=== PATIENT | female | born 1990 | race Two or more races ===

== ENCOUNTER 2020-08-10 | Outpatient (REF) | payer OTHER, SELFPAY | END 2020-08-10 00:01 | disposition home or self-care (01) | LOC: HO.HAP | PROVIDERS: Visit Provider Internal Medicine | DX: Z46.1 Encounter for fitting and adjustment of hearing aid (principal); H90.3 Sensorineural hearing loss, bilateral | CPT/HCPCS: 92593; 99499; V5266 ==

== ENCOUNTER 2020-10-17 10:57 | Outpatient (REF) | payer OTHER, SELFPAY ==
[2020-10-17 11:15] LABS: COVID-19 Test Negative (Negative)
== END 2020-10-17 10:58 | disposition home or self-care (01) ==
LOC: HO.LAB 10:57
PROVIDERS: Visit Provider Internal Medicine
DX: Z20.822 Contact with and (suspected) exposure to COVID-19 (principal)
CPT/HCPCS: 36415; 87635; C9803

== ENCOUNTER 2020-10-23 09:38 | Outpatient (REF) | payer OTHER, SELFPAY ==
[2020-10-23 10:17] LABS: COVID-19 Test Negative (Negative)
== END 2020-10-23 09:39 | disposition home or self-care (01) ==
LOC: HO.LAB 09:38
PROVIDERS: Visit Provider Internal Medicine
DX: Z20.822 Contact with and (suspected) exposure to COVID-19 (principal)
CPT/HCPCS: 36415; 87635; C9803

== ENCOUNTER 2020-10-31 11:05 | Outpatient (REF) | payer OTHER, SELFPAY ==
[2020-10-31 11:29] LABS: COVID-19 Test Negative (Negative)
== END 2020-10-31 11:06 | disposition home or self-care (01) ==
LOC: HO.LAB 11:05
PROVIDERS: Visit Provider Internal Medicine
DX: Z20.822 Contact with and (suspected) exposure to COVID-19 (principal)
CPT/HCPCS: 36415; 87635; C9803

== ENCOUNTER → 2020-12-10 09:24 | Outpatient (BNVA) | payer OTHER, SELFPAY | PROVIDERS: PCP Internal Medicine | DX: N23 Unspecified renal colic (principal); M54.9 Dorsalgia, unspecified | CPT/HCPCS: 99212 ==

== ENCOUNTER 2020-12-20 10:37 | Outpatient (REF) | payer OTHER, SELFPAY ==
--- NOTE | ~2020-12-20 | US_ITS ---
EXAMINATION: US RETROPERITONEAL LIMITED (RENAL ONLY) CLINICAL INFORMATION: Nephrolithiasis. COMPARISON: Renal ultrasound 12/26/2019 and 11/02/2019. X-ray abdomen KUB 12/07/2019. CT abdomen and pelvis 02/09/2019. TECHNIQUE: Real-time imaging of the kidneys. FINDINGS: RIGHT KIDNEY: 12.0 x 4.7 x 4.8 cm (SAG x AP x TRV). The kidney is normal in size, contour, and echogenicity. Renal cortical thickness is normal. No calculi or focal parenchymal lesions. No hydronephrosis. LEFT KIDNEY: 11.8 x 4.8 x 4.4 cm (SAG x AP x TRV). The kidney is normal in size, contour, and echogenicity. Renal cortical thickness is normal. No focal parenchymal lesions or hydronephrosis. A nonobstructing calculus in the lower pole measures 0.3 cm. US/US renal BI IMPRESSION: 1. Nonobstructing 0.3 cm calculus lower pole left kidney. No hydronephrosis. 2. Unremarkable right kidney. No calculi or hydronephrosis.
== END 2020-12-20 10:38 | disposition home or self-care (01) ==
LOC: HO.US 10:37
PROVIDERS: Visit Provider Urology
DX: N20.0 Calculus of kidney (principal)
CPT/HCPCS: 76775

== ENCOUNTER → 2021-01-08 10:05 | Outpatient (BNVA) | payer OTHER, SELFPAY | PROVIDERS: PCP Internal Medicine | DX: N23 Unspecified renal colic (principal) | CPT/HCPCS: 99212 ==

== ENCOUNTER 2021-01-21 11:34 | Outpatient (REF) | payer OTHER, SELFPAY | END 2021-01-21 11:35 | disposition home or self-care (01) | LOC: HO.LAB 11:34 | PROVIDERS: PCP Internal Medicine; Visit Provider Internal Medicine | DX: Z20.822 Contact with and (suspected) exposure to COVID-19 (principal) | CPT/HCPCS: C9803; U0003; U0005 ==

== ENCOUNTER 2021-03-20 10:15 | Outpatient (REF) | payer OTHER, SELFPAY ==
[2021-03-20 11:32] LABS: Eosinophils Absolute Auto 0.1 X10*3/uL (0.0-0.4); MANUAL DIFF FLAG SCAN; Mean Platelet Volume 10.6 fL (9.4-12.3); SCAN SMEAR FLAG 1
[2021-03-20 11:33] LABS: Basophils Percent Auto 0.2 % (0-2); Eosinophils Percent Auto 0.9 % (0-4); Hematocrit 25.4 % (37-47); Imm Gran Abs Auto 0.03 X10*3/uL (0.00-0.03); Imm Gran Pct Auto 0.5 % (0.0-0.4); Lymphocytes Absolute Auto 1.7 X10*3/uL (1.2-4.9); Lymphocytes Percent Auto 28.8 % (20-40); Mean Corpuscular HGB Conc 26.8 g/dl (31.0-35.0); Mean Corpuscular Hemoglobin 16.6 pg (27.0-33.0); Monocytes Absolute Auto 0.4 X10*3/uL (0.1-1.2); Monocytes Percent Auto 7.5 % (2-11); Neutrophils Absolute Auto 3.6 X10*3/uL (2.0-8.3); Neutrophils Percent Auto 62.1 % (45-73); Platelet Count 391 X10*3/uL (160-400); Red Blood Count 4.09 X10*6/uL (4.20-5.50); Red Cell Distribution Width 20.2 % (11.0-16.0); White Blood Count 5.8 X10*3/uL (4.8-10.8)
[2021-03-20 11:34] LABS: Mean Corpuscular Volume 62.1 fL (80-98); PLT ABN DIST 1
[2021-03-20 12:00] LABS: Hemoglobin 6.8 g/dl (12.0-16.0)
[2021-03-20 12:01] LABS: SLIDE REVIEW VERIFIED
[2021-03-20 12:31] LABS: Alanine Aminotransferase 11 U/L (0-31); Albumin Level 4.3 g/dL (3.5-5.0); Alkaline Phosphatase 84 U/L (39-117); Anion Gap 14 (12-20); Aspartate Amino Transferase 14 U/L (5-31); Bilirubin Total 0.6 mg/dL (0.0-1.0); Blood Urea Nitrogen 9 mg/dL (9-16); Calcium 9.3 mg/dL (8.4-10.2); Carbon Dioxide 23 mmol/L (22-29); Chloride 107 mmol/L (96-108); Cholesterol 128 mg/dL; Estimated Glomerular Filt Rate > 60; Glucose Fasting 85 mg/dL (60-99); HDL Cholesterol 40 mg/dL; LDL Cholesterol Calculated 79 mg/dl; Potassium 4.6 mmol/L (3.3-5.1); Sodium 139 mmol/L (135-145); Total Protein 7.2 g/dL (6.5-8.0); Triglycerides 48 mg/dL
[2021-03-20 13:07] LABS: Thyroid Stimulating Hormone 0.58 uIU/mL (0.32-4.0)
[2021-03-24 13:07] LABS: Vitamin D 25-OH, D2 <4 ng/mL; Vitamin D 25-OH, D3 24 ng/mL; Vitamin D 25-OH, Total 24 ng/mL (30-100)
== END 2021-03-20 10:16 | disposition home or self-care (01) ==
LOC: HO.LAB 10:15
PROVIDERS: PCP Internal Medicine; Visit Provider Internal Medicine
DX: E55.9 Vitamin D deficiency, unspecified (principal); E66.01 Morbid (severe) obesity due to excess calories; E78.5 Hyperlipidemia, unspecified; D64.9 Anemia, unspecified; Z68.41 Body mass index [BMI] 40.0-44.9, adult
CPT/HCPCS: 36415; 80053; 80061; 82306; 84443; 85025

== ENCOUNTER 2021-03-21 06:54 | Outpatient (REF) | payer OTHER, SELFPAY ==
[2021-03-21 13:34] LABS: MANUAL DIFF FLAG NO
[2021-03-21 13:38] LABS: Basophils Percent Auto 0.3 % (0-2); Eosinophils Percent Auto 0.4 % (0-4); Hematocrit 33.5 % (37-47); Hemoglobin 9.5 g/dl (12.0-16.0); Imm Gran Abs Auto 0.05 X10*3/uL (0.00-0.03); Imm Gran Pct Auto 0.5 % (0.0-0.4); Lymphocytes Absolute Auto 1.6 X10*3/uL (1.2-4.9); Lymphocytes Percent Auto 14.5 % (20-40); Mean Corpuscular HGB Conc 28.4 g/dl (31.0-35.0); Mean Corpuscular Hemoglobin 19.8 pg (27.0-33.0); Mean Corpuscular Volume 69.6 fL (80-98); Mean Platelet Volume 9.8 fL (9.4-12.3); Monocytes Absolute Auto 0.8 X10*3/uL (0.1-1.2); Monocytes Percent Auto 7.5 % (2-11); Neutrophils Absolute Auto 8.3 X10*3/uL (2.0-8.3); Neutrophils Percent Auto 76.8 % (45-73); Platelet Count 366 X10*3/uL (160-400); Red Blood Count 4.81 X10*6/uL (4.20-5.50); Red Cell Distribution Width 27.5 % (11.0-16.0); White Blood Count 10.8 X10*3/uL (4.8-10.8)
== END 2021-03-21 06:55 | disposition home or self-care (01) ==
LOC: HO.MDS 06:54
PROVIDERS: Visit Provider Internal Medicine
DX: D50.9 Iron deficiency anemia, unspecified (principal)
CPT/HCPCS: 36415; 36430; 85025; 86850; 86900; 86901; 86923; P9016

== ENCOUNTER → 2021-04-02 08:36 | Outpatient (BNVA) | payer OTHER, SELFPAY | PROVIDERS: PCP Internal Medicine; Visit Provider Physician Assistant Surgical ==

== ENCOUNTER 2021-04-08 08:42 | Outpatient (REF) | payer OTHER, SELFPAY ==
--- NOTE | ~2021-04-08 | US_ITS ---
EXAMINATION: US RETROPERITONEAL LIMITED (RENAL ONLY) CLINICAL INFORMATION: Renal colic. COMPARISON: Ultrasound renal 12/20/2020 and 12/26/2019 TECHNIQUE: Real-time imaging of the kidneys. FINDINGS: RIGHT KIDNEY: 12.1 x 5.0 x 6.6 cm (SAG x AP x TRV). The kidney is normal in size, contour, and echogenicity. Renal cortical thickness is normal. No calculi or focal parenchymal lesions. No hydronephrosis. LEFT KIDNEY: 11.5 x 4.8 x 6.0 cm (SAG x AP x TRV). The kidney is normal in size, contour, and echogenicity. Renal cortical thickness is normal. No focal parenchymal lesions or hydronephrosis. Redemonstration of a lower pole stone measuring 0.3 cm. There is a midpole probable stone measuring up to 0.3 cm which was not seen on the prior examination. US/US renal BI IMPRESSION: Stable left lower pole 0.3 cm renal stone with a new left midpole 0.3 cm renal stone. No right-sided renal stone. No hydronephrosis.
== END 2021-04-08 08:43 | disposition home or self-care (01) ==
LOC: HO.US 08:42
PROVIDERS: PCP Internal Medicine
DX: N23 Unspecified renal colic (principal)
CPT/HCPCS: 76775

== ENCOUNTER → 2021-04-12 08:04 | Outpatient (BNVA) | payer OTHER, SELFPAY | PROVIDERS: PCP Internal Medicine; Visit Provider Surgery ==

== ENCOUNTER → 2021-05-13 08:07 | Outpatient (BNVA) | payer OTHER, SELFPAY | PROVIDERS: PCP Internal Medicine; Visit Provider Surgery ==

== ENCOUNTER 2021-07-09 11:14 | Outpatient (REF) | payer OTHER, SELFPAY ==
[2021-07-09 11:33] LABS: MANUAL DIFF FLAG NO
[2021-07-09 12:17] LABS: Basophils Percent Auto 0.2 % (0-2); Eosinophils Absolute Auto 0.1 X10*3/uL (0.0-0.4); Eosinophils Percent Auto 0.6 % (0-4); Hematocrit 32.6 % (37.0-47.0); Hemoglobin 9.5 g/dl (12.0-16.0); Imm Gran Abs Auto 0.03 X10*3/uL (0.00-0.03); Imm Gran Pct Auto 0.3 % (0.0-0.4); Lymphocytes Absolute Auto 2.5 X10*3/uL (1.2-4.9); Lymphocytes Percent Auto 24.7 % (20-40); Mean Corpuscular HGB Conc 29.1 g/dl (31.0-35.0); Mean Corpuscular Hemoglobin 20.1 pg (27.0-33.0); Mean Corpuscular Volume 68.9 fL (80.0-98.0); Mean Platelet Volume 10.6 fL (9.4-12.3); Monocytes Absolute Auto 0.5 X10*3/uL (0.1-1.2); Monocytes Percent Auto 5.3 % (2-11); Neutrophils Absolute Auto 6.9 x10*3/uL (2.0-8.3); Neutrophils Percent Auto 68.9 % (45-73); Platelet Count 389 X10*3/uL (160-400); Red Blood Count 4.73 X10*6/uL (4.20-5.50); Red Cell Distribution Width 15.9 % (11.0-16.0)
[2021-07-09 12:39] LABS: Alanine Aminotransferase 16 U/L (0-31); Albumin Level 4.5 g/dL (3.5-5.0); Alkaline Phosphatase 88 U/L (39-117); Anion Gap 12 (12-20); Aspartate Amino Transferase 17 U/L (5-31); Bilirubin Total 0.3 mg/dL (0.0-1.0); Blood Urea Nitrogen 13 mg/dL (9-16); Calcium 9.7 mg/dL (8.4-10.2); Carbon Dioxide 24 mmol/L (22-29); Chloride 107 mmol/L (96-108); Estimated Glomerular Filt Rate > 60; Glucose Random 91 mg/dL (60-115); Potassium 4.6 mmol/L (3.3-5.1); Sodium 138 mmol/L (135-145); Total Protein 8.1 g/dL (6.5-8.0)
[2021-07-09 13:11] LABS: Folate 10.9 ng/mL (> or = 4.0); Vitamin B12 269 pg/mL (200-900)
[2021-07-13 12:40] LABS: Vitamin D 25-OH, D2 <4 ng/mL; Vitamin D 25-OH, D3 11 ng/mL; Vitamin D 25-OH, Total 11 ng/mL (30-100)
== END 2021-07-09 11:15 | disposition home or self-care (01) ==
LOC: HO.LAB 11:14
PROVIDERS: PCP Internal Medicine; Visit Provider Nurse Practitioner Acute Care
DX: D64.9 Anemia, unspecified (principal)
CPT/HCPCS: 36415; 80053; 82306; 82607; 82746; 85025

== ENCOUNTER 2021-07-18 13:48 | Outpatient (REF) | payer OTHER, SELFPAY ==
--- NOTE | ~2021-07-18 | US_ITS ---
EXAMINATION: US DIAGNOSTIC ULTRASOUND BREAST, LEFT CLINICAL INFORMATION: Intermittent left breast pain for several months. No palpable mass or discharge. No symptoms on day of imaging. No prior breast imaging. Family history breast cancer, mother age 46. Personal history thyroid cancer 2011. COMPARISON: None. TECHNIQUE: Ultrasound left breast is targeted to the areas of clinical concern 1:00 through 5:00 position. Grayscale imaging and color Doppler are performed without and with harmonics. Patient does not note any palpable area of concern and there is no tenderness or pain at time of appointment. FINDINGS: There is no focal suspicious finding. There is no cystic or solid mass, architectural abnormality, duct ectasia, or edema in the soft tissue planes. Results are discussed with the patient at time of visit. US/US breast LT limited IMPRESSION: Normal study. ASSESSMENT: BI-RADS 1: Negative RECOMMENDATION: 1. Patient's intermittent left breast pain should be managed based on the clinical impression. 2. Routine annual screening mammography beginning age 36 or earlier as clinical risk factors warrant. This patient's information was entered into a reminder system with a target due date for their next mammogram.
== END 2021-07-18 13:49 | disposition home or self-care (01) ==
LOC: HO.MAMMO 13:48
PROVIDERS: PCP Internal Medicine; Visit Provider Nurse Practitioner Acute Care
DX: N64.4 Mastodynia (principal)
CPT/HCPCS: 76642

== ENCOUNTER 2021-10-04 11:51 | Outpatient (REF) | payer OTHER, SELFPAY ==
[2021-10-04 12:08] LABS: MANUAL DIFF FLAG NO
[2021-10-04 12:30] LABS: Basophils Percent Auto 0.2 % (0-2); Eosinophils Absolute Auto 0.1 X10*3/uL (0.0-0.4); Eosinophils Percent Auto 0.7 % (0-4); Hematocrit 29.1 % (37.0-47.0); Imm Gran Abs Auto 0.03 X10*3/uL (0.00-0.03); Imm Gran Pct Auto 0.3 % (0.0-0.4); Lymphocytes Absolute Auto 2.8 X10*3/uL (1.2-4.9); Lymphocytes Percent Auto 30.6 % (20-40); Mean Corpuscular HGB Conc 27.5 g/dl (31.0-35.0); Mean Corpuscular Hemoglobin 18.4 pg (27.0-33.0); Mean Corpuscular Volume 66.9 fL (80.0-98.0); Mean Platelet Volume 10.2 fL (9.4-12.3); Monocytes Absolute Auto 0.6 X10*3/uL (0.1-1.2); Monocytes Percent Auto 6.2 % (2-11); Neutrophils Absolute Auto 5.7 x10*3/uL (2.0-8.3); Platelet Count 367 X10*3/uL (160-400); Red Blood Count 4.35 X10*6/uL (4.20-5.50); Red Cell Distribution Width 18.8 % (11.0-16.0); White Blood Count 9.1 X10*3/uL (4.8-10.8)
[2021-10-04 13:07] LABS: Alanine Aminotransferase 16 U/L (0-31); Albumin Level 4.2 g/dL (3.5-5.0); Alkaline Phosphatase 86 U/L (39-117); Anion Gap 12 (12-20); Aspartate Amino Transferase 13 U/L (5-31); Bilirubin Total 0.5 mg/dL (0.0-1.0); Blood Urea Nitrogen 12 mg/dL (9-16); Calcium 9.7 mg/dL (8.4-10.2); Carbon Dioxide 27 mmol/L (22-29); Chloride 106 mmol/L (96-108); Cholesterol 118 mg/dL; Estimated Glomerular Filt Rate > 60; Glucose Fasting 87 mg/dL (60-99); HDL Cholesterol 37 mg/dL; Iron 19 mcg/dL (30-160); LDL Cholesterol Calculated 73 mg/dl; Percent Iron Saturation 4 % (15-50); Potassium 4.4 mmol/L (3.3-5.1); Sodium 141 mmol/L (135-145); Total Iron Binding Capacity 449 mcg/dL (228-428); Total Protein 7.6 g/dL (6.5-8.0); Triglycerides 42 mg/dL; Unsaturated Iron Binding 430 ug/dL
[2021-10-04 13:28] LABS: Thyroid Stimulating Hormone 0.08 uIU/mL (0.32-4.0)
== END 2021-10-04 11:52 | disposition home or self-care (01) ==
LOC: HO.LAB 11:51
PROVIDERS: PCP Internal Medicine; Visit Provider Internal Medicine
DX: E55.9 Vitamin D deficiency, unspecified (principal); E03.9 Hypothyroidism, unspecified; E66.01 Morbid (severe) obesity due to excess calories; D64.9 Anemia, unspecified; Z68.41 Body mass index [BMI] 40.0-44.9, adult
CPT/HCPCS: 36415; 80053; 80061; 82306; 83540; 84443; 85025

== ENCOUNTER 2021-11-11 10:57 | Outpatient (REF) | payer OTHER, SELFPAY ==
--- NOTE | ~2021-11-11 | US_ITS ---
EXAMINATION: US RETROPERITONEAL LIMITED (RENAL ONLY) CLINICAL INFORMATION: Unspecified renal colic. COMPARISON: Renal ultrasound 04/08/2021, renal ultrasound 12/20/2020, x-ray abdomen 12/07/2019, CT abdomen and pelvis 02/09/2019 TECHNIQUE: Real-time imaging of the kidneys. FINDINGS: RIGHT KIDNEY: 11.3 x 4.6 x 5.8 cm (SAG x AP x TRV). The kidney is normal in size, contour, and echogenicity. Renal cortical thickness is normal. No calculi or focal parenchymal lesions. No hydronephrosis. LEFT KIDNEY: 11.8 x 5.5 x 5.1 cm (SAG x AP x TRV). The kidney is normal in size, contour, and echogenicity. Renal cortical thickness is normal. No calculi or focal parenchymal lesions. No hydronephrosis. Previously there were 2 radiopaque calculi seen in mid and lower pole. There are not seen at this time. US/US renal BI IMPRESSION: Unremarkable renal ultrasound.
== END 2021-11-11 10:58 | disposition home or self-care (01) ==
LOC: HO.US 10:57
DX: N23 Unspecified renal colic (principal)
CPT/HCPCS: 76775

== ENCOUNTER → 2021-11-25 09:33 | Outpatient (BNVA) | payer OTHER, SELFPAY | PROVIDERS: PCP Internal Medicine | DX: N20.0 Calculus of kidney (principal) | CPT/HCPCS: 99212 ==

== ENCOUNTER 2022-02-20 07:42 | Outpatient (REF) | payer OTHER, SELFPAY ==
--- NOTE | ~2022-02-20 | US_ITS ---
EXAMINATION: US RETROPERITONEAL LIMITED (RENAL ONLY) CLINICAL INFORMATION: Calculus of kidney. COMPARISON: Renal ultrasound 11/11/2021. TECHNIQUE: Routine grayscale imaging of kidneys was performed. FINDINGS: RIGHT KIDNEY: 12.6 x 5.0 x 5.5 cm (SAG x AP x TRV). The kidney is normal in size, contour, and echogenicity. Renal cortical thickness is normal. No calculi or focal parenchymal lesions. No hydronephrosis. LEFT KIDNEY: 12.4 x 4.8 x 5.0 cm (SAG x AP x TRV). The kidney is normal in size, contour, and echogenicity. Renal cortical thickness is normal. No calculi or focal parenchymal lesions. No hydronephrosis. There is echogenic calcification in upper pole. US/US renal BI IMPRESSION: Unremarkable renal ultrasound except for echogenic calcified vessel in the upper pole.
== END 2022-02-20 07:43 | disposition home or self-care (01) ==
LOC: HO.US 07:42
DX: N20.0 Calculus of kidney (principal)
CPT/HCPCS: 76775

== ENCOUNTER 2022-02-28 10:43 | Outpatient (REF) | payer OTHER, SELFPAY ==
[2022-02-28 10:58] LABS: MANUAL DIFF FLAG NO
[2022-02-28 11:17] LABS: Basophils Percent Auto 0.3 % (0-2); Eosinophils Absolute Auto 0.1 X10*3/uL (0.0-0.4); Eosinophils Percent Auto 0.6 % (0-4); Hematocrit 28.8 % (37.0-47.0); Imm Gran Abs Auto 0.03 X10*3/uL (0.00-0.03); Imm Gran Pct Auto 0.3 % (0.0-0.4); Lymphocytes Absolute Auto 2.6 X10*3/uL (1.2-4.9); Lymphocytes Percent Auto 26.5 % (20-40); Mean Corpuscular HGB Conc 27.8 g/dl (31.0-35.0); Mean Corpuscular Hemoglobin 17.7 pg (27.0-33.0); Mean Platelet Volume 10.2 fL (9.4-12.3); Monocytes Absolute Auto 0.6 X10*3/uL (0.1-1.2); Monocytes Percent Auto 5.5 % (2-11); Neutrophils Absolute Auto 6.6 x10*3/uL (2.0-8.3); Neutrophils Percent Auto 66.8 % (45-73); Platelet Count 380 X10*3/uL (160-400); Red Blood Count 4.52 X10*6/uL (4.20-5.50); Red Cell Distribution Width 19.5 % (11.0-16.0); White Blood Count 9.9 X10*3/uL (4.8-10.8)
[2022-02-28 11:18] LABS: Mean Corpuscular Volume 63.7 fL (80.0-98.0)
[2022-02-28 12:30] LABS: Iron 19 mcg/dL (30-160); Percent Iron Saturation 4 % (15-50); Total Iron Binding Capacity 480 mcg/dL (228-428); Unsaturated Iron Binding 461 ug/dL
[2022-02-28 12:40] LABS: Vitamin D 25-OH Total 20.4 ng/mL (>30)
== END 2022-02-28 10:44 | disposition home or self-care (01) ==
LOC: HO.LAB 10:43
PROVIDERS: PCP Internal Medicine; Visit Provider Internal Medicine
DX: D64.9 Anemia, unspecified (principal); E03.9 Hypothyroidism, unspecified; E55.9 Vitamin D deficiency, unspecified
CPT/HCPCS: 36415; 82306; 83540; 84443; 85025

== ENCOUNTER → 2022-04-04 09:40 | Outpatient (BNV) | payer OTHER, SELFPAY | PROVIDERS: PCP Internal Medicine; Referring Provider Internal Medicine; Visit Provider Internal Medicine Medical Oncology | DX: D64.9 Anemia, unspecified (principal) | CPT/HCPCS: 99204; 99213 ==

== ENCOUNTER 2022-04-21 12:59 | Outpatient (REF) | payer OTHER, SELFPAY | END 2022-04-21 13:00 | disposition home or self-care (01) | LOC: HO.MDS 12:59 | PROVIDERS: Visit Provider Internal Medicine Medical Oncology | DX: D50.8 Other iron deficiency anemias (principal) | CPT/HCPCS: 96365; J1756 ==

== ENCOUNTER 2022-04-24 13:55 | Outpatient (REF) | payer OTHER, SELFPAY ==
--- NOTE | 2022-04-24 15:21 | MHC.AU.ANH ---
Adult Audiological Evaluation Date of Visit: 04/24/22 Reason for Appointment: History of mild hearing loss. Patient arrives today to determine if there has been a change in hearing. She finds that she has been increasing the volume on her television and missing more of what people say. She reports that her left hearing aid was lost after taking it off to go [place] security [place] the airport. She has not been using the right hearing aid, since she does not have the left side to balance it out. Ear History: Recent Ear Drainage: None Reported Recent Ear Pain: None Reported Family History of Hearing Loss?: Yes History of Ear Wax Buildup: None Reported Bothersome Tinnitus/Ringing/Noises in Ears: None Reported Ear used on the phone: Right Ear History: No Medical History: Medical History: Thyroidectomy due to thyroid cancer, migraines, anemia Medication List: Vitamin B6, Vitamin B12, Levothyroxine, Iron, Tramadol Hearing Instrument History- Right Ear: Oticon OPN 2 miniRITE #[id number], Black Battery Size: 312 Repair Warranty: Loss and Damage Warranty: Dispensed By: [facility] Date of Fittin02/11/2018 Hearing Instrument History- Left Ear: Oticon OPN 2 miniRITE, #[id number], Black Battery Size: 312 Warranty: Loss and Damage Warranty: Dispensed By: [facility] Date of Fittin02/11/2018 Otoscopy: Right Ear: Unremarkable Left Ear: Unremarkable Tympanometry: Tympanometry performed due to: To assess integrity of the middle ear system Right Ear: Normal Middle Ear System (Type A) Left Ear: Normal Middle Ear System (Type A) Hearing Evaluation: Transducer(s) Used: Insert Earphones Method: Conventional Audiometry Stimuli Used: Pure Tones Right Ear: Description of Hearing: Mild sensorineural hearing loss. SRT is 30 dBHL. Word discrimination at MCL is 96%. Left Ear: Description of Hearing: Mild sensorineural hearing loss. SRT is 30 dBHL. Word discrimination at MCL is 100%. Most Comfortable Level (MCL): 75 dBHL in the right ear. 80 dBHL in the left ear. Comparison: Compared to the most recent evaluation: Thresholds have decreased bilaterally. Recommendations: Audiological re-evaluation in one year. Patient reports she has been talking to Miguel Sy at [place] [facility] ([facility]). She requested that today's audiogram be sent to Barbra Yossi. She will discuss the possibility of new hearing aids vs. replacing the old left hearing aid with him. Diagnosis: Primary Diagnosis: H90.3 Bilateral Sensorineural Hearing Loss Signature: Provider: Cristal Gallego, YURIY-A
== END 2022-04-24 13:56 | disposition home or self-care (01) ==
LOC: HO.SH 13:55
PROVIDERS: Visit Provider Internal Medicine
DX: H90.3 Sensorineural hearing loss, bilateral (principal)
CPT/HCPCS: 92557; 92567

== ENCOUNTER 2022-05-01 09:12 | Outpatient (REF) | payer OTHER, SELFPAY ==
[2022-05-01 10:05] LABS: MANUAL DIFF FLAG NO
[2022-05-01 10:10] LABS: Basophils Percent Auto 0.2 % (0-2); Eosinophils Absolute Auto 0.1 X10*3/uL (0.0-0.4); Eosinophils Percent Auto 0.7 % (0-4); Hematocrit 32.3 % (37.0-47.0); Hemoglobin 9.2 g/dl (12.0-16.0); Imm Gran Abs Auto 0.02 X10*3/uL (0.00-0.03); Imm Gran Pct Auto 0.2 % (0.0-0.4); Lymphocytes Absolute Auto 2.4 X10*3/uL (1.2-4.9); Lymphocytes Percent Auto 25.5 % (20-40); Mean Corpuscular HGB Conc 28.5 g/dl (31.0-35.0); Mean Corpuscular Volume 70.1 fL (80.0-98.0); Monocytes Absolute Auto 0.5 X10*3/uL (0.1-1.2); Monocytes Percent Auto 5.8 % (2-11); Neutrophils Absolute Auto 6.3 x10*3/uL (2.0-8.3); Neutrophils Percent Auto 67.6 % (45-73); Platelet Count 350 X10*3/uL (160-400); Red Blood Count 4.61 X10*6/uL (4.20-5.50); Red Cell Distribution Width 25.9 % (11.0-16.0); White Blood Count 9.4 X10*3/uL (4.8-10.8)
== END 2022-05-01 09:13 | disposition home or self-care (01) ==
LOC: HO.MDS 09:12
PROVIDERS: Visit Provider Internal Medicine Medical Oncology
DX: D50.9 Iron deficiency anemia, unspecified (principal)
CPT/HCPCS: 36415; 85025; 96365; J1756

== ENCOUNTER 2022-05-08 07:40 | Outpatient (REF) | payer OTHER, SELFPAY | END 2022-05-08 07:41 | disposition home or self-care (01) | LOC: HO.MDS 07:40 | PROVIDERS: Visit Provider Internal Medicine Medical Oncology | DX: D50.9 Iron deficiency anemia, unspecified (principal) | CPT/HCPCS: 96365; J1756 ==

== ENCOUNTER 2022-05-15 08:04 | Outpatient (REF) | payer OTHER, SELFPAY | END 2022-05-15 08:05 | disposition home or self-care (01) | LOC: HO.MDS 08:04 | PROVIDERS: Visit Provider Internal Medicine Medical Oncology | DX: D50.9 Iron deficiency anemia, unspecified (principal) | CPT/HCPCS: 96365; J1756 ==

== ENCOUNTER 2022-05-20 07:22 | Outpatient (REF) | payer OTHER, SELFPAY | END 2022-05-20 07:23 | disposition home or self-care (01) | LOC: HO.MDS 07:22 | PROVIDERS: Visit Provider Internal Medicine Medical Oncology | DX: D50.9 Iron deficiency anemia, unspecified (principal) | CPT/HCPCS: 96365; J1756 ==

== ENCOUNTER 2022-05-27 07:22 | Outpatient (REF) | payer OTHER, SELFPAY | END 2022-05-27 07:23 | disposition home or self-care (01) | LOC: HO.MDS 07:22 | PROVIDERS: Visit Provider Internal Medicine Medical Oncology | DX: D50.9 Iron deficiency anemia, unspecified (principal) | CPT/HCPCS: 96365; J1756 ==

== ENCOUNTER 2022-06-05 07:29 | Outpatient (REF) | payer OTHER, SELFPAY | END 2022-06-05 07:30 | disposition home or self-care (01) | LOC: HO.MDS 07:29 | PROVIDERS: Visit Provider Internal Medicine Medical Oncology | DX: D50.9 Iron deficiency anemia, unspecified (principal) | CPT/HCPCS: 96365; J1756 ==

== ENCOUNTER 2022-06-11 16:55 | Emergency (ER) | payer OTHER, SELFPAY ==
--- NOTE | ~2022-06-11 | CT_ITS ---
EXAMINATION: CT abdomen pelvis wo IV con CLINICAL INFORMATION: Reason for Exam r flank pain COMPARISON: Prior CT 2019 TECHNIQUE: Multidetector volumetric imaging was performed from the superior aspect of the liver through the pubic symphysis , noncontrasted study. Sagittal and coronal reformatted images were obtained on the technologist's workstation. This CT examination was performed using dose optimization techniques as appropriate, variously including the following: *Automated exposure control *Adjustment of mA and/or kV according to patient size (this includes techniques or standardized protocols for targeted exams where dose is matched to indication/reason for exam; i.e. extremities or head) *Use of iterative reconstruction technique DLP: 804 mGy-cm FINDINGS: LOWER THORAX: Included lung bases are clear. HEPATOBILIARY: No focal hepatic lesions. No biliary ductal dilatation. GALLBLADDER: Gallbladder unremarkable. SPLEEN: Spleen is normal in size. PANCREAS: No focal mass or ductal dilatation. STOMACH AND GASTROINTESTINAL TRACT: Stomach is grossly unremarkable. There is no bowel distention or thickening. No CT evidence of appendicitis. ADRENALS: No adrenal nodules. KIDNEYS/URETERS: There is 5 mm nonobstructing stone lower calyx left kidney, 4 mm nonobstructing stone middle calyx left kidney. Kidneys otherwise normal in size, texture and attenuation, no renal mass, cyst or obstruction. Perinephric fat are clear. URINARY BLADDER: Partially decompressed. PELVIC VISCERA: Unremarkable PERITONEUM: No free air or fluid. LYMPH NODES: No lymphadenopathy. VASCULAR:Abdominal aorta normal in size, no aneurysm found. BONES, ABDOMINAL WALL AND SOFT TISSUES: Age-appropriate changes of the spine and skeletal system, no destructive osteolytic or osteosclerotic bone lesion found CT/CT abdomen pelvis wo IV con IMPRESSION: * No CT evidence of acute intra-abdominal process to explain patient's pain symptoms. * There are nonobstructing stones in the left kidney, 5 mm and 4 mm. No hydronephrosis.
[2022-06-11 17:53] VITALS: BP 152/80; PULSE 67; RESP 18; TEMP 36.6; O2SAT 100; BMI 40.9
--- NOTE | 2022-06-11 17:58 | ED.ABDPAIN ---
HPI - Abdominal Pain General Chief Complaint: Abdominal Pain <Devika Cruz MD - Last Filed: 06/11/22 18:00> Stated Complaint: abdominal/ back pain 3x days <Devika Cruz MD - Last Filed: 06/11/22 18:00> Time Seen by Provider: 06/11/22 21:45 <Devika Cruz MD - Last Filed: 06/11/22 18:00> Source: patient <Yakelin Quinonez MD - Last Filed: 06/11/22 23:01> Mode of arrival: ambulatory <Yakelin Quinonez MD - Last Filed: 06/11/22 23:01> Limitations: no limitations <Yakelin Quinonez MD - Last Filed: 06/11/22 23:01> History of Present Illness HPI narrative: 32-year-old female came in for evaluation of abdominal pain started 3 days ago. Pain is localized to the right flank area patient had previous pain in the past when she had kidney stones, then patient started to have vomiting and having epigastric pain. No diarrhea, no urinary symptoms no dysuria, no frequency urination, no hematuria. Patient had a history of kidney stones that required surgical intervention. No vaginal bleeding or discharge. Normal bowel movement with no diarrhea. No fever or chills. Patient takes iron infusion prescribed by the oncologist for low iron which may be causing the abdominal pain (last infusion was ). <Yakelin Quinonez MD - Last Filed: 06/11/22 23:01> Related Data Home Medications: Home Medications Medication Instructions Recorded Confirmed levothyroxine 125 mcg tablet 125 mcg PO DAILY 03/20/22 04/04/22 Previous Rx's Medication Instructions Recorded sennosides 8.6 mg tablet (senna) 8.6 mg PO BEDTIME PRN constipation 10/26/21 90 days #90 tabs pyridoxine (vitamin B6) 100 mg 100 mg PO DAILY 90 days #90 tabs 11/25/21 tablet cholecalciferol (vitamin D3) 50 50 mcg PO DAILY 90 days #90 caps 12/03/21 mcg (2,000 unit) capsule ferrous sulfate 325 mg (65 mg 325 mg PO TID 90 days #270 tabs 12/03/21 iron) tablet albuterol sulfate 90 mcg/actuation 2 puff inhalation Q6H PRN 01/01/22 aerosol inhaler (ProAir HFA) shortness of breath or wheezing 30 days #6.7 grams topiramate 25 mg tablet 25 mg PO BEDTIME 90 days #90 tabs 03/20/22 tramadol 50 mg tablet 50 mg PO Q8H PRN pain 30 days #90 05/27/22 tabs omeprazole 40 mg capsule,delayed 40 mg PO DAILY #14 caps 06/11/22 release <Devika rCuz MD - Last Filed: 06/11/22 18:00> Allergies/Adverse Reactions: Allergies Allergy/AdvReac Type Severity Reaction Status Date / Time pineapple Allergy Severe Anaphylaxis Verified 06/11/22 17:51 SEAFOOD Allergy Severe ANAPHYLAXIS Uncoded 04/04/22 10:06 <Devika Cruz MD - Last Filed: 06/11/22 18:00> Review of Systems Review of Systems All other systems are reviewed and are negative Constitutional: Reports as per HPI and Reports no additional constitutional complaints Eyes: Reports as per HPI and Reports no additional eye complaints Reports system reviewed and no additional complaints, except as documented Cardiovascular: Reports as per HPI and Reports no additional cardiovascular complaints Respiratory: Reports as per HPI and Reports no additional respiratory complaints Gastrointestinal: Reports as per HPI and Reports no additional gastrointestinal complaints Genitourinary: Reports no additional female genitourinary complaints Musculoskeletal: Reports no additional musculoskeletal complaints Skin/Breast: Reports system reviewed and no additional complaints, except as docu Psychiatric: Reports no additional psychiatric complaints Endocrine: Reports no additional endocrine complaints Hematologic/Lymphatic: Reports no additional hematologic/lymphatic complaints Allergic/Immunologic: Reports no additional allergic/immunologic complaints Reports system reviewed and no additional complaints, except as documented and Reports Abnormal speech present <Yakelin Quinonez MD - Last Filed: 06/11/22 23:01> [facility] Past Medical History Medical History: Medical History Abdominal pain Acquired hypothyroidism Asthma Back pain Headache Mesenteric lymphadenitis Morbid obesity with BMI of 40.0-44.9, adult Renal calculi Renal colic Thyroid ca Thyroid disease <Devika Cruz MD - Last Filed: 06/11/22 18:00> Surgical History: Surgical History History of kidney surgery History of surgery Hx of section <Devika Cruz MD - Last Filed: 06/11/22 18:00> Family History Family History: Family History Father Diabetes Hyperlipidemia Mother Breast cancer Heart attack Brother No problems noted. Brother No problems noted. Brother No problems noted. Sister No problems noted. Daughter No problems noted. Daughter No problems noted. <Devika Cruz MD - Last Filed: 06/11/22 18:00> Social History Social History: Social History Household Members: Family and Children Housing: Apartment Are you a primary residential caregiver to a significant other at home: No Do you presently have visiting nurse or other home services: No Alcohol intake: never Patient Tobacco Use Status: Never used Tobacco e-Cigarette/Vaping Use: Never Used Second Hand Smoke Exposure: No Advance Directives: No Advance Directives Information Provided: Yes service: No Current occupational status: unemployed Current occupational exposures/hazards: No Cognitive needs: No Hearing needs: No Vision needs: Yes <Devika Cruz MD - Last Filed: 06/11/22 18:00> Physical Exam ED Vital Signs: Vital Signs - 24 hr 06/11/22 17:53 Temperature 97.9 F Pulse Rate 67 Respiratory Rate 18 Blood Pressure 152/80 H Pulse Oximetry 100 Oxygen Delivery Method Room Air BMI result Body Mass Index 40.9 <Devika Cruz MD - Last Filed: 06/11/22 18:00> Vital Signs - 24 hr 06/11/22 17:53 Temperature 97.9 F Pulse Rate 67 Respiratory Rate 18 Blood Pressure 152/80 H Pulse Oximetry 100 Oxygen Delivery Method Room Air BMI result Body Mass Index 40.9 Vital signs have been reviewed as appeared to be correct. Blood pressure normal. Heart rate normal. Respiration rate normal. Temperature normal. Oxygen saturation normal. <Yakelin Quinonez MD - Last Filed: 06/11/22 23:01> Appearance: Alert. Oriented X3. No acute distress. Head: Normal external exam. Normocephalic. Atraumatic. No Qureshi signs noted. No raccoon eyes noted Eyes: PERRLA. EOMI. Conjunctiva and sclera normal. Eyelids normal. ENT: TM's Normal. Pharynx normal. Uvula midline. Moist mucous membranes. No trismus noted. No drooling noted. No muffled voice noted. Neck: Normal inspection. Neck supple. FROM. No adenopathy. Thyroid Normal. No meningeal signs. No neck mass noted. CVS: Normal heart rate and rhythm. Heart sound normal. No murmurs noted. Pulses normal throughout. Respiratory: No respiratory distress. Painless inspiration. Breath sounds normal. No wheezes/rales/rhonchi noted. Chest nontender. No accessory muscle usage noted or decreased air movement noted. Abdomen: Obese, soft, mild epigastric tenderness, no rebound tenderness, no guarding.. Bowel sounds normal in all 4 quadrants. No distention noted. No organomegaly noted. No visible injury noted. Back: Right CVA tenderness. Full range of motion noted. Skin: Skin warm and dry. Normal skin color. Normal skin turgor. No rashes/lesions/lacerations noted. Extremities: No lower extremity edema. Extremities exhibit normal range of motion. Extremities nontender. Neuro: Oriented X 3. Cranial nerve exam: II-XII are grossly intact No motor deficit. No sensory deficit. Reflexes normal. <Yakelin Quinonez MD - Last Filed: 06/11/22 23:01> Course Course Course Narrative: Patient is a 32-year-old female presents today with having right flank pain since Thursday. History of kidney stone. It migrates from the flank to the epigastric area. Question related to food. No Sir history of abdominal surgery. No coughing or congestion upper respiratory symptoms. The pain is sharp in nature. No vomiting, positive nausea. No diarrhea. Patient does not think she is . Last menstrual period just finished. History of kidney stones in the past. pain is similar. <Devika Cruz MD - Last Filed: 06/11/22 18:00> Reevaluation(s) Reevaluation #1: 32-year-old female came in with right flank pain and epigastric pain, patient has unremarkable labs except significant for anemia the patient is receiving IV iron infusion ordered by director manufacturing engineering, patient also has unremarkable CT for obstructing kidney stone physical exam is consistent with acute gastritis and might be a side effect from the iron infusion. Will start the patient on Prilosec the plan was discussed with the patient. <Yakelin Quinonez MD - Last Filed: 06/11/22 23:01> Time: 22:53 <Yakelin Quinonez MD - Last Filed: 06/11/22 23:01> Medical Decision Making Medical Decision Making Differential Diagnoses: Differential diagnosis (Abdominal pain/side effect from iron infusion/gastritis/obstructing kidney stone/acute appendicitis.) <Yakelin Quinonez MD - Last Filed: 06/11/22 23:01> Lab Attestation: I reviewed the patient's lab results. <Yakelin Quinonez MD - Last Filed: 06/11/22 23:01> Independent interpretation of EKG, rhythm strip, radiology study: Independent interp EKG,rhythm strip, radiology study I performed an independent interpretation of the: CT Scan (Abdomen) My interpretation is no obstructing ureteric stone. <Yakelin Quinonez MD - Last Filed: 06/11/22 23:01> Discussion of test interpretation with radiology: Discussion of test interpretation with radiology <Yakelin Quinonez MD - Last Filed: 06/11/22 23:01> Medications Administered Generic Name Dose Route Start Last Admin Trade Name Freq PRN Reason Stop Dose Admin Sodium Chloride 1,000 mls @ 999 mls/hr 06/11/22 22:03 06/11/22 22:34 Ns IV 06/11/22 23:03 999 mls/hr .Q1H1M ONE Administration Discontinued Medications Generic Name Dose Route Start Last Admin Trade Name Freq PRN Reason Stop Dose Admin Al Hydroxide/Mg Hydroxide 30 ml 06/11/22 22:03 06/11/22 22:32 Magnesium Hydrox/Alum Hydrox 30 Ml Oral.Susp PO 06/11/22 22:04 30 ml ONCE ONE Administration Famotidine 20 mg 06/11/22 22:03 06/11/22 22:33 Famotidine/Pf 20 Mg/2 Ml Vial IVPUSH 06/11/22 22:04 20 mg ONCE ONE Administration Sodium Chloride 1,000 mls @ 999 mls/hr 06/11/22 18:00 06/11/22 22:34 Ns IV 06/11/22 19:00 Not Given .Q1H1M RUBEN Ketorolac Tromethamine 30 mg 06/11/22 17:58 06/11/22 22:33 Ketorolac Tromethamine 30 Mg/Ml Vial IVPUSH 06/11/22 17:59 30 mg ONCE ONE Administration Ondansetron HCl 4 mg 06/11/22 22:03 06/11/22 22:33 Ondansetron Hcl 4 Mg/2 Ml Vial IVPUSH 06/11/22 22:04 4 mg ONCE ONE Administration <Devika Cruz MD - Last Filed: 06/11/22 18:00> Medications Administered Generic Name Dose Route Start Last Admin Trade Name Freq PRN Reason Stop Dose Admin Sodium Chloride 1,000 mls @ 999 mls/hr 06/11/22 22:03 06/11/22 22:34 Ns IV 06/11/22 23:03 999 mls/hr .Q1H1M ONE Administration Discontinued Medications Generic Name Dose Route Start Last Admin Trade Name Freq PRN Reason Stop Dose Admin Al Hydroxide/Mg Hydroxide 30 ml 06/11/22 22:03 06/11/22 22:32 Magnesium Hydrox/Alum Hydrox 30 Ml Oral.Susp PO 06/11/22 22:04 30 ml ONCE ONE Administration Famotidine 20 mg 06/11/22 22:03 06/11/22 22:33 Famotidine/Pf 20 Mg/2 Ml Vial IVPUSH 06/11/22 22:04 20 mg ONCE ONE Administration Sodium Chloride 1,000 mls @ 999 mls/hr 06/11/22 18:00 06/11/22 22:34 Ns IV 06/11/22 19:00 Not Given .Q1H1M RUBEN Ketorolac Tromethamine 30 mg 06/11/22 17:58 06/11/22 22:33 Ketorolac Tromethamine 30 Mg/Ml Vial IVPUSH 06/11/22 17:59 30 mg ONCE ONE Administration Ondansetron HCl 4 mg 06/11/22 22:03 06/11/22 22:33 Ondansetron Hcl 4 Mg/2 Ml Vial IVPUSH 06/11/22 22:04 4 mg ONCE ONE Administration <Yakelin Quinonez MD - Last Filed: 06/11/22 23:01> Discharge Plan Discharge Clinical Impression: Gastritis, Abdominal pain <Devika Cruz MD - Last Filed: 06/11/22 18:00> Patient Disposition: Home, Self-Care <Devika Cruz MD - Last Filed: 06/11/22 18:00> Instructions: Abdominal Pain (ED) <Devika Cruz MD - Last Filed: 06/11/22 18:00> Prescriptions: New omeprazole 40 mg capsule,delayed release(DR/EC) 40 mg PO DAILY Qty: 14 0RF No Action sennosides [senna] 8.6 mg tablet 8.6 mg PO BEDTIME PRN (Reason: constipation) 90 Days Qty: 90 1RF cholecalciferol (vitamin D3) 50 mcg (2,000 unit) capsule 50 mcg PO DAILY 90 Days Qty: 90 0RF ferrous sulfate 325 mg (65 mg iron) tablet 325 mg PO TID 90 Days Qty: 270 0RF albuterol sulfate [ProAir HFA] 90 mcg/actuation HFA aerosol inhaler 2 puff inhalation Q6H PRN (Reason: shortness of breath or wheezing) 30 Days Qty: 6.7 0RF tramadol 50 mg tablet 50 mg PO Q8H PRN (Reason: pain) 30 Days Qty: 90 0RF levothyroxine 125 mcg tablet 125 mcg PO DAILY topiramate 25 mg tablet 25 mg PO BEDTIME 90 Days Qty: 90 1RF pyridoxine (vitamin B6) 100 mg tablet 100 mg PO DAILY 90 Days Qty: 90 1RF <Devika Cruz MD - Last Filed: 06/11/22 18:00> Referrals: Sravani Quick MD [Primary Care Provider] - <Devika Cruz MD - Last Filed: 06/11/22 18:00>
[2022-06-11 18:20] LABS: MANUAL DIFF FLAG NO
[2022-06-11 18:22] LABS: Basophils Percent Auto 0.2 % (0-2); Eosinophils Absolute Auto 0.1 X10*3/uL (0.0-0.4); Eosinophils Percent Auto 0.5 % (0-4); Hematocrit 34.8 % (37.0-47.0); Hemoglobin 11.2 g/dl (12.0-16.0); Imm Gran Abs Auto 0.02 X10*3/uL (0.00-0.03); Imm Gran Pct Auto 0.2 % (0.0-0.4); Lymphocytes Absolute Auto 2.6 X10*3/uL (1.2-4.9); Lymphocytes Percent Auto 24.6 % (20-40); Mean Corpuscular HGB Conc 32.2 g/dl (31.0-35.0); Mean Corpuscular Hemoglobin 25.4 pg (27.0-33.0); Mean Corpuscular Volume 78.9 fL (80.0-98.0); Mean Platelet Volume 9.4 fL (9.4-12.3); Monocytes Absolute Auto 0.5 X10*3/uL (0.1-1.2); Monocytes Percent Auto 5.1 % (2-11); Neutrophils Absolute Auto 7.2 x10*3/uL (2.0-8.3); Neutrophils Percent Auto 69.4 % (45-73); Platelet Count 288 X10*3/uL (160-400); Red Blood Count 4.41 X10*6/uL (4.20-5.50); Red Cell Distribution Width 24.6 % (11.0-16.0); White Blood Count 10.4 X10*3/uL (4.8-10.8)
[2022-06-11 18:26] LABS: Appearance Urine Clear; Color Urine Yellow; Glucose Urine UA Negative (Negative); Leukocyte Esterase Urine Negative (Negative); Nitrite Urine Negative (Negative); Specific Gravity - Urine 1.025 (1.005-1.025); UMIC TRIGGER UACC YES; Urine Blood Moderate (2+) (Negative); Urine Ketones Negative (Negative); Urine Protein Negative (Neg-Trace)
[2022-06-11 18:30] LABS: Bacteria Urine None Seen (None Seen); Hyaline Casts Urine 0-2 /LPF (0-2); WBC Urine 0-5 /HPF (0-5)
[2022-06-11 18:45] LABS: Alanine Aminotransferase 21 U/L (0-31); Albumin Level 4.4 g/dL (3.5-5.0); Alkaline Phosphatase 78 U/L (39-117); Anion Gap 12 (12-20); Aspartate Amino Transferase 15 U/L (5-31); Bilirubin Direct < 0.2 mg/dL (0.0-0.5); Bilirubin Total 0.3 mg/dL (0.0-1.0); Blood Urea Nitrogen 8 mg/dL (9-16); Calcium 9.1 mg/dL (8.4-10.2); Carbon Dioxide 25 mmol/L (22-29); Chloride 109 mmol/L (96-108); Creatinine Clr Calc Pharmacy 123.3; Estimated Glomerular Filt Rate > 60; Glucose Random 98 mg/dL (60-115); HCG Quantitative < 2 mIU/mL; Lipase 18 U/L (8-78); Potassium 3.7 mmol/L (3.3-5.1); Sodium 142 mmol/L (135-145); Total Protein 7.2 g/dL (6.5-8.0)
[2022-06-11] MEDS: Magnesium Hydrox/Alum Hydrox 30 ML ORAL.SUSP PO (22:32)
[2022-06-11] MEDS: ondansetron HCL 4 MG/2 ML VIAL IVPUSH (22:33)
[2022-06-11] MEDS: Ketorolac Tromethamine 30 MG/ML VIAL IVPUSH (22:33)
[2022-06-11] MEDS: Famotidine/PF 20 MG/2 ML VIAL IVPUSH (22:33)
[2022-06-11] MEDS: 0.9 % Sodium Chloride 1,000 ML 999 ML IV (22:34)
[2022-06-11] MEDS: Morphine Sulfate 2 MG/ML CARTRIDGE 1 MG IVPUSH (23:10)
[2022-06-11 23:38] VITALS: BP 138/74; PULSE 89; RESP 18; TEMP 36.7; O2SAT 99
== END 2022-06-11 23:41 | disposition home or self-care (01) ==
PROVIDERS: Emergency Medicine Emergency Medical Services; Emergency Provider Emergency Medicine; PCP Internal Medicine
DX: K29.00 Acute gastritis without bleeding (principal); R10.13 Epigastric pain; Z79.899 Other long term (current) drug therapy
CPT/HCPCS: 36415; 74176; 80048; 80076; 81001; 83690; 84702; 85025; 96374; 96375; 99284; J1885; J2270; J2405

== ENCOUNTER 2022-06-12 07:45 | Outpatient (REF) | payer OTHER, SELFPAY | END 2022-06-12 07:46 | disposition home or self-care (01) | LOC: HO.MDS 07:45 | PROVIDERS: Visit Provider Internal Medicine Medical Oncology | DX: D50.9 Iron deficiency anemia, unspecified (principal) | CPT/HCPCS: 96365; J1756 ==

== ENCOUNTER 2022-06-26 09:56 | Outpatient (REF) | payer OTHER, SELFPAY ==
--- NOTE | ~2022-06-26 | US_ITS ---
EXAMINATION: US RETROPERITONEAL LIMITED (RENAL ONLY) CLINICAL INFORMATION: Calculus of kidney. COMPARISON: CT abdomen and pelvis 06/11/2022. TECHNIQUE: Real-time imaging of the kidneys. FINDINGS: RIGHT KIDNEY: 11.8 x 5.2 x 5.2 cm (SAG x AP x TRV). The kidney is normal in size, contour, and echogenicity. Renal cortical thickness is normal. No calculi or focal parenchymal lesions. No hydronephrosis. LEFT KIDNEY: 11.0 x 5.0 x 5.7 cm (SAG x AP x TRV). The kidney is normal in size, contour, and echogenicity. Renal cortical thickness is normal. No focal parenchymal lesions or hydronephrosis. 6 mm nonobstructing left midpole renal stone, previously measured 5 mm, similar when accounting for differences in technique. A second previously seen left lower pole renal stone was not identified sonographically. US/US renal BI IMPRESSION: 6 mm nonobstructing left midpole renal stone, similar when accounting for differences in technique. A second previously seen left lower pole renal stone was not identified sonographically.
== END 2022-06-26 09:57 | disposition home or self-care (01) ==
LOC: HO.US 09:56
PROVIDERS: Visit Provider Urology
DX: N20.0 Calculus of kidney (principal)
CPT/HCPCS: 76775

== ENCOUNTER 2022-06-26 13:18 | Outpatient (REF) | payer OTHER, SELFPAY ==
--- NOTE | 2022-06-26 15:40 | MHC.AU.HA1 ---
Hearing Aid Evaluation Date of Visit: 06/26/22 Historical Information: Description of Hearing: Mild sensorineural hearing loss bilaterally Current personal amplification information, if applicable: Previously: Pair of Oticon OPN 2 miniRITE, obtained on 02/11/2018. Left side has been lost. Summary: Patient's left hearing aid was lost after taking it off to go through airport security. She has not been able to use the right hearing aid, as she feels unbalanced using only one side by itself. Per [employer], her current model has been discontinued and can longer be purchased. It is also out of the loss and the damage warranty period. It would not be ideal to only replace the left side, because then each ear would have a different, incompatible model. The sound quality would be different in each ear, which would also cause a similar unbalanced feeling to when she wears only one side. Hearing aids are also designed to work and communicate together as a pair. If the models are different, the hearing aids cannot communicate and many beneficial features cannot be accessed. We will therefore request prior authorization for a new pair of hearing aids. If able to proceed, a pair of Oticon More 2 miniRITE R (pink) with size 2 60-gain receivers was selected. Action Taken/Action Needed: Prior authorization to be requested Medical Clearance to be requested from PCP/ENT Patient will be contacted to update her when the insurance authorization is received. If approved, the order can then be placed. Primary Diagnosis: H90.3 Bilateral Sensorineural Hearing Loss Signature: Provider: Cristal Gallego, YURIY-A
--- NOTE | 2022-06-26 15:41 | MHC.AU.MED ---
Medical Clearance for Hearing Instrumentation Date: 06/26/22 Patient Name: Crissy Martin Date of : 1990 Referring Provider: Sravani Barron MD We have seen your patient on 04/24/22 and have determined that they are a candidate for amplification (See accompanying report). Specifically, they would benefit from: Hearing aid use in both ears There is a statute that addresses Medical Evaluation Requirements prior to fitting a patient with a hearing aid. According to [place] statute 265 CMR:6.03(1), (a) General. Except as provided in 265 CMR 6.03(1)(b), a tool inspector shall not sell a hearing aid unless the prospective user has presented to the tool inspector a written statement signed by a licensed physician that states that the patient's hearing loss has been medically evaluated and the patient may be considered a candidate for a hearing aid. The medical evaluation must have taken place within the preceding six months. Please note: Due to the [place] Statute referenced above, we cannot accept a signature other than that of a licensed physician. [employer]ATOR [employer] and PA signatures cannot be accepted. I am in agreement with the above recommendation. There is no medical contraindication for hearing instrumentation. Physician Signature Date Physician Name (Printed)
== END 2022-06-26 13:19 | disposition home or self-care (01) ==
LOC: HO.HAP 13:18
PROVIDERS: Visit Provider Internal Medicine
DX: Z46.1 Encounter for fitting and adjustment of hearing aid (principal); H90.3 Sensorineural hearing loss, bilateral
CPT/HCPCS: 92591

== ENCOUNTER → 2022-07-10 11:21 | Outpatient (BNVA) | payer OTHER, SELFPAY | PROVIDERS: PCP Internal Medicine; Visit Provider Urology | DX: N20.0 Calculus of kidney (principal) | CPT/HCPCS: 99212 ==

== ENCOUNTER 2022-07-17 13:16 | Outpatient (REF) | payer OTHER, SELFPAY ==
--- NOTE | 2022-07-18 10:39 | MHC.AU.HA2 ---
Hearing Instrument Fitting- Adult- Binaural Date of Visit: 07/17/22 Hearing Instruments Dispensed: Right Ear: Make, Model, Color, Serial Number: Oticon OPN 2 miniRITE #[id number], Black/New MORE 2 miniRITE R Hear [place] Serial # [id number] Timekeeping Supervisor Repair Warranty: 08/01/2025 Timekeeping Supervisor Loss and Damage Warranty: 08/01/2025 [facility] Service Plan: 07/17/2023 Battery Size: 312 Temperature Control Inspector/Slim Tube: Size 2 60-Gain Earmold/Dome/CShell/SlimTip: 8mm Open Type of Wax Guard: Prowax minifit Left Ear: Make, Model, Color, Serial Number: Oticon OPN 2 miniRITE, #[id number], Black/ New MORE 2 miniRITE R Hear [place] Serial #[id number] Timekeeping Supervisor Repair Warranty: 08/01/2025 Timekeeping Supervisor Loss and Damage Warranty: 08/01/2025 [facility] Service Plan: 07/17/2023 Battery Size: 312 Temperature Control Inspector/Slim Tube: Size 2 60-Gain Earmold/Dome/CShell/SlimTip: 8mm Open Type of Wax Guard: Prowax minifit Accessories/Assistive Technology: /[id number] steward/stewardess banquet SN [id number] yrn: 08/01/2025 Summary of Fitting: Verifit run and levels adjusted to better reach targets. At patient request, overall gain was raised by 3 steps. Patient was pleased with the sound of the instruments. Hearing aid care and maintenance were discussed and demonstrated. Hearing aids were paired to her phone and to the Oticon On matthew. After testing the phone, patient felt it could be a little louder when streaming. In Genie, increased phone volume. Patient is working with [employer]) to find a new job. Discussed that depending on what her future job is, the Oticon ConnectClip could be useful. It is a multi-purpose device that can act as a microphone and a streamer. For example, it could be worn by presenters during meetings or by people she is meeting with one-on-one. It could also be paired to a wider range of Bluetooth-compatible devices, such as certain computers, phones, and tablets. If she finds in her future job that she is not hearing well enough with the hearing aids alone, she could discuss the ConnectClip with [facility]. Recommendations: Patient is an experienced hearing aid user and will call for follow-up as needed. Diagnosis Code(s): Primary Diagnosis: H90.3 Bilateral Sensorineural Hearing Loss Signature: Provider: Cristal Gallego, CCC-A
== END 2022-07-17 13:17 | disposition home or self-care (01) ==
LOC: HO.HAP 13:16
PROVIDERS: Visit Provider Internal Medicine
DX: Z46.1 Encounter for fitting and adjustment of hearing aid (principal); H90.3 Sensorineural hearing loss, bilateral
CPT/HCPCS: V5011; V5020; V5160; V5261

== ENCOUNTER 2022-12-08 14:55 | Outpatient (REF) | payer SELFPAY | END 2022-12-08 14:56 | disposition home or self-care (01) | LOC: HO.HAP 14:55 | PROVIDERS: Visit Provider Internal Medicine | DX: Z13.89 Encounter for screening for other disorder (principal) ==

== ENCOUNTER 2022-12-23 09:46 | Outpatient (REF) | payer SELFPAY | END 2022-12-23 09:47 | disposition home or self-care (01) | LOC: HO.HAP 09:46 | PROVIDERS: Visit Provider Internal Medicine | DX: Z13.89 Encounter for screening for other disorder (principal) ==

== ENCOUNTER 2023-02-20 09:08 | Outpatient (REF) | payer OTHER, SELFPAY | END 2023-02-20 09:09 | disposition home or self-care (01) | LOC: HO.HAP 09:08 | PROVIDERS: Visit Provider Internal Medicine | DX: Z13.89 Encounter for screening for other disorder (principal) ==

== ENCOUNTER 2023-06-16 11:32 | Outpatient (REF) | payer OTHER, SELFPAY | END 2023-06-16 11:33 | disposition home or self-care (01) | LOC: HO.HAP 11:32 | PROVIDERS: Visit Provider Internal Medicine | DX: Z13.89 Encounter for screening for other disorder (principal) ==

== ENCOUNTER 2023-07-02 13:31 | Outpatient (REF) | payer OTHER, SELFPAY | END 2023-07-02 13:32 | disposition home or self-care (01) | LOC: HO.HAP 13:31 | PROVIDERS: Visit Provider Internal Medicine | DX: Z13.89 Encounter for screening for other disorder (principal) ==

== ENCOUNTER 2023-11-05 14:45 | Outpatient (AMB) | payer OTHER, SELFPAY ==
[2023-11-05 14:52] VITALS: BP 130/76; BMI 35.5
--- NOTE | 2023-11-05 14:52 | MHC.PC.OV ---
Vital Signs 11/05/23 14:52 Height 4 ft 11 in Weight 176 lb BMI 35.5 BP 130/76 Blood Pressure Location Lt brachial Position Sitting Intake Visit Reasons: forms Intake Note: Patient here for a form Resource Room Special Education Teacher Required: No Accompanied by: Significant Other Allergies pineapple Allergy (Severe, Verified 11/05/23 15:17) Anaphylaxis SEAFOOD Allergy (Severe, Uncoded 11/05/23 15:17) ANAPHYLAXIS Medication List - Last Reconciled 11/05/23 by Sravani Barron MD albuterol sulfate 90 mcg/actuation (ProAir HFA) 2 puffs inhalation Q6H PRN 30 days cholecalciferol (vitamin D3) 50 mcg PO DAILY 90 days docusate sodium (Colace) 100 mg PO DAILY ferrous sulfate 325 mg PO TID 90 days levothyroxine 125 mcg PO DAILY omeprazole 40 mg PO DAILY pyridoxine (vitamin B6) 100 mg PO DAILY 90 days sennosides (senna) 8.6 mg PO BEDTIME PRN 90 days topiramate 25 mg PO BEDTIME 90 days tramadol 50 mg PO Q8H PRN 30 days Ventolin HFA 90 mcg/actuation (albuterol sulfate) 2 puffs inhalation Q6H PRN 30 days NS Tobacco use date assessed: 11/05/23 Dental Screening Dental Screen Date: 11/05/23 Did you have a dental visit in the last 12 months?: No Did you have a dental problem in the last 6 months where you did not have access to dental care?: No Was dental information given to patient?: Patient has dentist HPI HPI Comments History of Present Illness Details This is a 33-year-old female with history of thyroid cancer, GERD, constipation, chronic back pain on opiate use and anemia that comes today complaining of blood in the stools that started few weeks ago. No chest pain, shortness on breath or abdominal pain. Had thyroid cancer in 2011 treated with thyroidectomy and this is follow by Endocrinology. GERD stable with PPIs. Constipation well controlled with senna as needed. Has chronic back pain and is on tramadol and pain management contract and urine toxicology were done today. On ferrous sulfate for her anemia which will be monitor. She is accompanied today by boyfriend. [facility] Medical History (Updated 11/06/23 @ 07:45 by Sravani Barron MD) BMI 39.0-39.9,adult Anxiety and depression Acute gastritis Constipation Renal calculi Morbid obesity with BMI of 40.0-44.9, adult Acquired hypothyroidism Thyroid ca Renal colic Back pain Asthma Headache Thyroid disease Abdominal pain Mesenteric lymphadenitis Surgical History History of kidney surgery Hx of section History of surgery Family History Father Diabetes Hyperlipidemia Mother Breast cancer Heart attack Brother No problems noted. Brother No problems noted. Brother No problems noted. Sister No problems noted. Daughter No problems noted. Daughter No problems noted. Social History Household Members: Family and Children Housing: Apartment Are you a primary care services manager to a significant other at home: No Do you presently have visiting nurse or other home services: No Alcohol intake: never Patient Tobacco Use Status: Never used Tobacco e-Cigarette/Vaping Use: Never Used Second Hand Smoke Exposure: No service: No Current occupational status: unemployed Cognitive needs: No Hearing needs: No Vision needs: Yes Questionnaire PHQ-9 Over the last 2 weeks, how often have you been bothered by any of the following problems? 1. Little interest or pleasure in doing things: not at all 2. Feeling down, depressed, or hopeless: not at all 3. Trouble falling or staying asleep, or sleeping too much: not at all 4. Feeling tired or having little energy: not at all 5. Poor appetite or overeating: not at all 6. Feeling bad about yourself - or that you are a failure or have let yourself or your family down: not at all 7. Trouble concentrating on things, such as reading the newspaper or watching television: not at all 8. Moving or speaking so slowly that other people could have noticed. Or the opposite - being so fidgety or restless that you have been moving around a lot more than usual: not at all 9. Thoughts that you would be better off or of hurting yourself in some way: not at all Total score: 0 Depression Screening Interpretation: Negative Depression Screening Done: Yes 66399 - PHQ-9 Billing: Yes Source: Developed by You Stephenset B.W. Declan, Jose Garcia and colleagues, with an educational minal from [employer]. Thrive Questionnaire Date Thrive assessed: 11/05/23 I am a: Patient What is your living situation today?: I have a steady place to live Within the past 12 months, did the food you bought not last and you didn't have the money to get more?: Never true Within the past 12 months, did you worry whether your food would run out before you got money to buy more?: Never true Do you have trouble paying for medicines?: No Do you have trouble getting transportation to medical appointments?: No Do you have trouble paying your heating and electricity bill?: No Do you have trouble taking care of your child, family member or friend?: No Do you have trouble with day-to-day activities such as bathing, preparing meals, shopping, managing finances, etc.?: No Are you currently unemployed and looking for a job?: No Are you interested in more education?: No Please select the resources that you would like help with: None Currently or been in a relationship where the following occur: no concerns reported THRIVE Score: 0 AUDIT C Alcohol Use Questionnaire (AUDIT-C) 1. How often do you have a drink containing alcohol?: Never Total Score: 0 CECILIA-7 AMB Questionnaire CECILIA-7 Date CECILIA - 7 assessed: 11/05/23 Feeling nervous, anxious, or on edge: 1 = Several days Not being able to stop or control worryin = Not at all Worrying too much about different things: 1 = Several days Trouble relaxin = Several days Being so restless that it is hard to sit still: 0 = Not at all Becoming easily annoyed or irritable: 0 = Not at all Feeling afraid as if something awful might happen: 1 = Several days Total CECILIA-7 score (0-4 normal; 5-9 mild; 10-14 moderate; 15-21 severe): 4 Source: Developed by Drs. Truman Leon, Kristyn Manriquez, Jose Garcia and colleagues, with an educational minal from [employer]. CECILIA-7 Assessment Billing CECILIA-7 Assessment Tool: CECILIA-7 Assessment 67169 Review of Systems Const All systems reviewed & are unremarkable except as noted in HPI and below Eyes Reports no additional complaints, Denies change in vision and Denies other visual disturbances Card Denies chest pain at rest, Denies chest pain with activity, Denies edema, Denies irregular heart rhythm, Denies claudication, Denies dyspnea, Denies dyspnea on exertion, Denies orthopnea, Denies paroxysmal nocturnal dyspnea and Denies slow heart rate Resp Denies cough, Denies dyspnea and Denies dyspnea on exertion Physical exam (Primary Care) Vital Signs: Last Vital Signs BP 130/76 11/05/23 14:52 BMI result Body Mass Index 35.5 Tobacco/Smoking Status: Tobacco use Status Tobacco use date assessed 11/05/23 11/05/23 14:57 Patient Tobacco Use Status Never used Tobacco 11/05/23 14:57 e-Cigarette/Vaping Use Never Used 11/05/23 14:57 PHQ-9: PHQ-9 Score PHQ-9: Total score 0 11/05/23 17:36 Depression Screening Interpretation: Negative Thrive Assessment: Date of Thrive Assessment Date Thrive assessed 11/05/23 11/05/23 14:57 Currently or been in a relationship where the following occur: no concerns reported Resp Effort & Inspection: normal respiratory effort Auscultation: clear to auscultation bilaterally Cardio Jugular venous distension: no JVD Rate: regular rate Rhythm: regular rhythm Heart sounds: S1 normal heart sound present and S2 normal heart sound present Extrem General: Yes full ROM Assessment and Plan Assessment & Plan (1) Thyroid ca: Code(s): C73 - Malignant neoplasm of thyroid gland Plan: Continue levothyroxine. Monitor TSH. (2) Blood in stool: Code(s): K92.1 - Melena Plan: Referred to Gastroenterology. (3) Microcytic hypochromic anemia: Code(s): D50.9 - Iron deficiency anemia, unspecified Plan: Continue ferrous sulfate. Monitor CBC. (4) Constipation: Code(s): K59.00 - Constipation, unspecified Plan: Continue senna as needed. (5) Back pain: Code(s): M54.9 - Dorsalgia, unspecified Qualifiers: Back pain location: low back pain Chronicity: chronic Back pain laterality: bilateral Sciatica presence: without sciatica Qualified Code(s): M54.50 - Low back pain, unspecified; G89.29 - Other chronic pain Plan: Continue tramadol. Pain management contract signed today. (6) GERD (gastroesophageal reflux disease): Code(s): K21.9 - Gastro-esophageal reflux disease without esophagitis Orders: Orders IRON PROFILE 4 Months D64.9 - Anemia, unspecified Comprehensive [place]. Panel Fast 4 Months G43.909 - Migraine, unspecified, not intractable, without status migrainosus Tramadol Ur GC/MS 11/05/23 Z79.891 - detention (current) use of opiate analgesic Opiates GCMS Expanded, Ur 11/05/23 Z79.891 - detention (current) use of opiate analgesic Drug Screen Urine 11/05/23 Z79.891 - information lead (current) use of opiate analgesic Complete Blood Count Auto Diff 4 Months D64.9 - Anemia, unspecified Vitamin B12 and Folate 4 Months E53.8 - Deficiency of other specified B group vitamins Vitamin D 25-OH Total 4 Months E55.9 - Vitamin D deficiency, unspecified Lipid Panel 4 Months E78.5 - Hyperlipidemia, unspecified, Z00.00 - Encounter for general adult medical examination without abnormal findings Referrals Gastroenterology Referral K92.1 - Melena Medications: Refilled sennosides (senna) 8.6 mg PO BEDTIME PRN 90 tabs 1RF constipation 90 days docusate sodium (Colace) 100 mg PO DAILY 30 caps 3RF Coding Level of Care Code Est Pt Level 4 (94877) Diagnoses Thyroid ca C73 Blood in stool K92.1 Microcytic hypochromic anemia D50.9 Constipation K59.00 Chronic bilateral low back pain without sciatica M54.50; G89.29 Back pain location: low back pain Chronicity: chronic Back pain laterality: bilateral Sciatica presence: without sciatica GERD (gastroesophageal reflux disease) K21.9 Additional Codes CECILIA-7 Assessment Billing - CECILIA-7 Assessment Tool: CECILIA-7 Assessment 81388 ([id number]) Time Spent (min) 25
== END 2023-11-05 15:32 | disposition home or self-care (01) ==
LOC: HO.HMGH 14:45
PROVIDERS: PCP Internal Medicine; Visit Provider Internal Medicine
DX: C73 Malignant neoplasm of thyroid gland (principal); K92.1 Melena; D50.9 Iron deficiency anemia, unspecified; K59.00 Constipation, unspecified; M54.50 Low back pain, unspecified; G89.29 Other chronic pain; K21.9 Gastro-esophageal reflux disease without esophagitis
CPT/HCPCS: 99214

== ENCOUNTER 2023-11-05 18:13 | Outpatient (REF) | payer OTHER, SELFPAY ==
[2023-11-05 18:31] LABS: Amphetamine Screen Urine Not Detected (Not Detect); Barbiturates, Urine Not Detected (Not Detect); Benzodiazepines Screen Urine Not Detected (Not Detect); Buprenorphine Scr Not Detected (Not Detect); Cannabinoid Screen Urine Not Detected (Not Detect); Cocaine Screen Urine Not Detected (Not Detect); Fentanyl, urine Not Detected (Not Detect); Methadone Screen, Urine Not Detected (Not Detect); Opiate Screen Urine Not Detected (Not Detect); Oxycodone Screen Urine Not Detected (Not Detect); Phencyclidine Screen Urine Not Detected (Not Detect)
[2023-11-09 08:24] LABS: Codeine, Ur NEGATIVE; Hydrocodone, Ur NEGATIVE; Hydromorphone, Ur NEGATIVE; Morphine, Ur NEGATIVE; Oxycodone, Ur NEGATIVE
[2023-11-09 08:25] LABS: Norhydrocodone, Ur NEGATIVE; Noroxycodone, Ur NEGATIVE; Oxymorphone, Ur NEGATIVE
[2023-11-09 08:26] LABS: Desmethyltramadol, Ur NEGATIVE; Tramadol, Ur NEGATIVE
== END 2023-11-05 18:14 | disposition home or self-care (01) ==
LOC: HO.LNP 18:13
PROVIDERS: Visit Provider Internal Medicine
DX: Z79.891 Long term (current) use of opiate analgesic (principal)
CPT/HCPCS: 80307; 80365; 80373; G0480

== ENCOUNTER 2023-11-16 11:24 | Outpatient (AMB) | payer OTHER, SELFPAY ==
--- NOTE | 2023-11-16 11:53 | A.OFFVIS_ITS ---
Intake Visit Reasons: 6 month follow up Stones Intake Note: Follow up kidney stones Medications: none Blood thinners: none Gynaecological Oncologist Required: No Accompanied by: Significant Other Allergies pineapple Allergy (Severe, Verified 11/16/23 11:54) Anaphylaxis SEAFOOD Allergy (Severe, Uncoded 11/16/23 11:54) ANAPHYLAXIS [facility] Medical History (Updated 11/06/23 @ 07:45 by Sravani Barron MD) BMI 39.0-39.9,adult Anxiety and depression Acute gastritis Constipation Renal calculi Morbid obesity with BMI of 40.0-44.9, adult Acquired hypothyroidism Thyroid ca Renal colic Back pain Asthma Headache Thyroid disease Abdominal pain Mesenteric lymphadenitis Surgical History History of kidney surgery Hx of section History of surgery Family History Father Diabetes Hyperlipidemia Mother Breast cancer Heart attack Brother No problems noted. Brother No problems noted. Brother No problems noted. Sister No problems noted. Daughter No problems noted. Daughter No problems noted. Social History Household Members: Family and Children Housing: Apartment Are you a primary medical care manager to a significant other at home: No Do you presently have visiting nurse or other home services: No Alcohol intake: never Patient Tobacco Use Status: Never used Tobacco e-Cigarette/Vaping Use: Never Used Second Hand Smoke Exposure: No service: No Current occupational status: unemployed Cognitive needs: No Hearing needs: No Vision needs: Yes Results AMB Urinalysis, Automated UA Leukoctes 0 Eliana/uL Last Edit by MIKE Mclain on 11/16/23 11:58 UA Nitrite Negative Last Edit by MIKE Mclain on 11/16/23 11:58 UA Urobilinogen 0.2 mg/dL Last Edit by MIKE Mclain on 11/16/23 11:5 8 UA Protein 15 mg/dL Last Edit by MIKE Mclain on 11/16/23 11:58 UA pH 6.0 Last Edit by MIKE Mclain on 11/16/23 11:58 UA Blood 0 Jacques/uL Last Edit by IMKE Mclain on 11/16/23 11:58 UA Specific Ehrhardt 1.025 Last Edit by Liana Kenney A on 11/16/23 11: 58 UA Ketone Negative Last Edit by MIKE Mclain on 11/16/23 11:58 UA Bilirubin 1 mg/dL Last Edit by MIKE Mclain on 11/16/23 11:58 1 mg/dL Liana Kenney 11/16/23 11:58 UA Glucose 0 mg/dL Last Edit by MIKE Mclain on 11/16/23 11:58 Results Reviewed Results Reviewed: Laboratory Last Values Urine pH (Auto) 6.0 11/16/23 11:56 Specific Ehrhardt (Auto) 1.025 11/16/23 11:56 Urine Protein (Auto) 15 mg/dL 11/16/23 11:56 Glucose (UA)(Auto) 0 mg/dL 11/16/23 11:56 Urine Ketones (Auto) Negative 11/16/23 11:56 Urine Blood (Auto) 0 Jacques/uL 11/16/23 11:56 Urine Nitrite (Auto) Negative 11/16/23 11:56 Urine Bilirubin (Auto) 1 mg/dL 11/16/23 11:56 Urine Urobilinogen (Auto) 0.2 mg/dL 11/16/23 11:56 Leukocyte Esterase (Auto) 0 Eliana/uL 11/16/23 11:56 Assessment & Plan Assessment & Plan (1) Kidney stone on left side: Code(s): N20.0 - Calculus of kidney Category: Medical Plan appointment rescheduled Orders: Orders AMB Urinalysis Automated 11/16/23 Z13.9 - Encounter for screening, unspecified Coding Level of Care Code Left Without Being Seen Diagnoses Kidney stone on left side N20.0
== END 2023-11-16 12:13 | disposition left against medical advice (07) ==
PROVIDERS: PCP Internal Medicine; Visit Provider Urology
DX: Z13.9 Encounter for screening, unspecified (principal)

== ENCOUNTER → 2023-11-16 11:24 | Outpatient (BNVA) | payer OTHER, SELFPAY | PROVIDERS: PCP Internal Medicine; Visit Provider Urology | DX: N20.0 Calculus of kidney (principal) | CPT/HCPCS: 81003 ==

== ENCOUNTER 2023-11-20 09:12 | Outpatient (AMB) | payer OTHER, SELFPAY ==
--- NOTE | 2023-11-20 10:28 | MHC.OFFVIS ---
Intake Visit Reasons: follow up/stones Allergies pineapple Allergy (Severe, Verified 11/16/23 11:54) Anaphylaxis SEAFOOD Allergy (Severe, Uncoded 11/16/23 11:54) ANAPHYLAXIS HPI Comments Details: 11/20/2023--Crissy is a 33-year-old female with history of kidney stones. She was seen last on 07/10/2022. She states since that time she has not seen blood in the urine. She gets occasional discomfort in the left kidney area but also feels discomfort on the right side. She has a chronic back issue and is prescribed tramadol p.r.n.. History of thyroid cancer and is on Topamax for migraines. No recent imaging. Had CT and renal ultrasound June 2022 noting left nephrolithiasis. The patient is interested in proceeding with treatment for kidney stone. Will check a KUB x-ray. Discussed left ESWL, reviewed risks and benefits versus discussed ureteroscopy as an alternative therapy option. Plan left ESWL. Review of chart: 07/10/22--32-year-old female history followed for kidney stones PMH -- asthma, acquired hypothyroidism secondary to thyroidectomy from history of thyroid CA, anxiety,migraine anemia--followed Hematology has undergone 1 unit RBCs on 04/08 and is currently receiving IV Venofer. She was in the ED --seen on 06/11 for 3 days of right flank pain history of kidney stone, vomiting and epigastric pain. CT unremarkable --5 mm and 4 mm nonobstructing stones in the left kidney with no hydronephrosis. Patient's exam was consistent with acute gastritis and patient was started on Prilosec. She had a renal sono 06/26/22 -- 6 mm stone left kidney reported. Discussed treatment options to include Left ESWL. Discussed risks to include but not limited to, blood in the urine, bruising to the skin, kidney hematoma, possible need for another procedure if a stone fragment obstructs the ureter while passing, possible need to repeat procedure if stone is not completely fragmented. [facility] Medical History BMI 39.0-39.9,adult Anxiety and depression Acute gastritis Constipation Renal calculi Morbid obesity with BMI of 40.0-44.9, adult Acquired hypothyroidism Thyroid ca Renal colic Back pain Asthma Headache Thyroid disease Abdominal pain Mesenteric lymphadenitis Surgical History History of kidney surgery Hx of section History of surgery Family History Father Diabetes Hyperlipidemia Mother Breast cancer Heart attack Brother No problems noted. Brother No problems noted. Brother No problems noted. Sister No problems noted. Daughter No problems noted. Daughter No problems noted. Social History Household Members: Family and Children Housing: Apartment Are you a primary home health caregiver to a significant other at home: No Do you presently have visiting nurse or other home services: No Alcohol intake: never Patient Tobacco Use Status: Never used Tobacco e-Cigarette/Vaping Use: Never Used Second Hand Smoke Exposure: No service: No Current occupational status: unemployed Cognitive needs: No Hearing needs: No Vision needs: Yes Review of Systems Const All systems reviewed & are unremarkable except as noted in HPI and below Reports no additional complaints Eyes Reports no additional complaints ENT Reports no additional complaints Card Reports no additional complaints Resp Reports no additional complaints GI Reports no additional complaints Reports as per HPI Musc Reports no additional complaints Skin/Breast Reports system reviewed and no additional complaints, except as documented Neuro Reports no additional complaints Psych Reports no additional complaints Endo Reports no additional complaints Dmitry/Lymph Reports no additional complaints Aller/Immun Reports no additional complaints Results Reviewed Results Reviewed: Date of Service: 06/11/22 EXAMINATION: CT abdomen pelvis wo IV con CLINICAL INFORMATION: Reason for Exam r flank pain COMPARISON: Prior CT 2018 FINDINGS: LOWER THORAX: Included lung bases are clear. HEPATOBILIARY: No focal hepatic lesions. No biliary ductal dilatation. GALLBLADDER: Gallbladder unremarkable. SPLEEN: Spleen is normal in size. PANCREAS: No focal mass or ductal dilatation. STOMACH AND GASTROINTESTINAL TRACT: Stomach is grossly unremarkable. There is no bowel distention or thickening. No CT evidence of appendicitis. ADRENALS: No adrenal nodules. KIDNEYS/URETERS: There is 5 mm nonobstructing stone lower calyx left kidney, 4 mm nonobstructing stone middle calyx left kidney. Kidneys otherwise normal in size, texture and attenuation, no renal mass, cyst or obstruction. Perinephric fat are clear. URINARY BLADDER: Partially decompressed. PELVIC VISCERA: Unremarkable PERITONEUM: No free air or fluid. LYMPH NODES: No lymphadenopathy. VASCULAR:Abdominal aorta normal in size, no aneurysm found. BONES, ABDOMINAL WALL AND SOFT TISSUES: Age-appropriate changes of the spine and skeletal system, no destructive osteolytic or osteosclerotic bone lesion found IMPRESSION: ? *? No CT evidence of acute intra-abdominal process to explain patient's pain symptoms.? *? There are nonobstructing stones in the left kidney, 5 mm and 4 mm. No hydronephrosis. Date of Service: 06/26/22 EXAMINATION: US RETROPERITONEAL LIMITED (RENAL ONLY) CLINICAL INFORMATION: Calculus of kidney. COMPARISON: CT abdomen and pelvis 06/11/2022.? TECHNIQUE: Real-time imaging of the kidneys.? FINDINGS: RIGHT KIDNEY: 11.8 x 5.2 x 5.2 cm (SAG x AP x TRV). The kidney is normal in size, contour, and echogenicity. Renal cortical thickness is normal. No calculi or focal parenchymal lesions. No hydronephrosis. LEFT KIDNEY: 11.0 x 5.0 x 5.7 cm (SAG x AP x TRV). The kidney is normal in size, contour, and echogenicity. Renal cortical thickness is normal. No focal parenchymal lesions or hydronephrosis. 6 mm nonobstructing left midpole renal stone, previously measured 5 mm, similar when accounting for differences in technique. A second previously seen left lower pole renal stone was not identified sonographically. IMPRESSION:? 6 mm nonobstructing left midpole renal stone, similar when accounting for differences in technique. A second previously seen left lower pole renal stone was not identified sonographically. ? Assessment & Plan Assessment & Plan (1) Kidney stone on left side: Code(s): N20.0 - Calculus of kidney Category: Medical Plan KUB x-ray ordered. Discussed left ESWL for treatment option for left renal stone. If you are able to work with her now would Orders: Orders XR KUB Today N20.0 - Calculus of kidney Patient Instructions: The patient had an opportunity to ask questions regarding treatment plan. The patient expressed understanding and agreement with the above treatment plan. The patient is aware they should contact our office by phone for worsening of their current condition or the appearance of new symptoms. Compliance is encouraged with any medications and followup testing that is ordered. It is a privilege to be allowed the opportunity to participate in the urologic care of your patient. If you have any questions or concerns regarding treatment for the above conditions please do not hesitate to contact me. The office telephone contact is [phone]. This note is constructed in part using voice recognition software. While every effort has been made to ensure accuracy drier belt conveyor errors may have been included. Yours sincerely, Guille Aldana MD Coding Level of Care Code Est Pt Level 4 (79533) Diagnoses Kidney stone on left side N20.0
== END 2023-11-20 10:48 | disposition home or self-care (01) ==
PROVIDERS: PCP Internal Medicine; Visit Provider Urology
DX: N20.0 Calculus of kidney (principal)
CPT/HCPCS: 99214

== ENCOUNTER 2023-11-20 09:12 | Outpatient (REF) | payer OTHER, SELFPAY ==
--- NOTE | ~2023-11-20 | XR_ITS ---
EXAMINATION: XR ABDOMEN KUB CLINICAL INDICATION: Calculus of kidney. COMPARISON: Renal ultrasound 07/03/2022, CT abdomen and pelvis 06/11/2022, KUB 12/07/2019. TECHNIQUE: 2 AP views of the abdomen. FINDINGS: Nonobstructive bowel gas pattern. Moderate amount of stool in the colon. Several small possible calculi overlying the left kidney measuring up to 4 mm are difficult to evaluate due to overlying bowel. No definitive right neural calculi appreciated. XR/XR KUB IMPRESSION: Several small possible calculi overlying the left kidney measuring up to 4 mm are difficult to evaluate due to overlying bowel.
[2023-11-20 11:06] LABS: MANUAL DIFF FLAG NO
[2023-11-20 12:00] LABS: Basophils Percent Auto 0.5 % (0-2); Eosinophils Absolute Auto 0.1 X10*3/uL (0.0-0.4); Eosinophils Percent Auto 0.9 % (0-4); Hematocrit 33.6 % (37.0-47.0); Hemoglobin 10.6 g/dl (12.0-16.0); Imm Gran Abs Auto 0.02 X10*3/uL (0.00-0.03); Imm Gran Pct Auto 0.2 % (0.0-0.4); Lymphocytes Absolute Auto 2.8 X10*3/uL (1.2-4.9); Lymphocytes Percent Auto 34.3 % (20-40); Mean Corpuscular HGB Conc 31.5 g/dl (31.0-35.0); Mean Corpuscular Hemoglobin 26.2 pg (27.0-33.0); Mean Corpuscular Volume 83.2 fL (80.0-98.0); Mean Platelet Volume 10.5 fL (9.4-12.3); Monocytes Absolute Auto 0.6 X10*3/uL (0.1-1.2); Monocytes Percent Auto 6.8 % (2-11); Neutrophils Absolute Auto 4.6 x10*3/uL (2.0-8.3); Neutrophils Percent Auto 57.3 % (45-73); Platelet Count 356 X10*3/uL (160-400); Red Blood Count 4.04 X10*6/uL (4.20-5.50); White Blood Count 8.1 X10*3/uL (4.8-10.8)
[2023-11-20 12:41] LABS: Alanine Aminotransferase 11 U/L (0-31); Albumin Level 4.3 g/dL (3.5-5.0); Alkaline Phosphatase 72 U/L (39-117); Anion Gap 11 (12-20); Aspartate Amino Transferase 13 U/L (5-31); Bilirubin Total 0.2 mg/dL (0.0-1.0); Blood Urea Nitrogen 14 mg/dL (9-16); Carbon Dioxide 27 mmol/L (22-29); Chloride 107 mmol/L (96-108); Cholesterol 128 mg/dL (<200); Estimated Glomerular Filt Rate > 60; Glucose Fasting 91 mg/dL (60-99); HDL Cholesterol 44 mg/dL (>40); Iron 16 mcg/dL (30-160); LDL Cholesterol Calculated 65 mg/dL (<100); Percent Iron Saturation 4 % (15-50); Potassium 4.4 mmol/L (3.3-5.1); Sodium 141 mmol/L (135-145); Total Iron Binding Capacity 364 mcg/dL (228-428); Total Protein 7.6 g/dL (6.5-8.0); Triglycerides 97 mg/dL (<150); Unsaturated Iron Binding 348 ug/dL
[2023-11-20 12:43] LABS: Vitamin D 25-OH Total 20.7 ng/mL (>30)
[2023-11-20 12:54] LABS: Folate 11.5 ng/mL (> or = 4.0); Vitamin B12 276 pg/mL (200-900)
== END 2023-11-20 09:13 | disposition home or self-care (01) ==
LOC: HO.XRAY 09:12
PROVIDERS: Absent Provider Internal Medicine; PCP Internal Medicine; Visit Provider Urology
DX: Z00.00 Encounter for general adult medical examination without abnormal findings (principal); N20.0 Calculus of kidney; E55.9 Vitamin D deficiency, unspecified; E53.8 Deficiency of other specified B group vitamins; E78.5 Hyperlipidemia, unspecified; D64.9 Anemia, unspecified; G43.909 Migraine, unspecified, not intractable, without status migrainosus; Z87.442 Personal history of urinary calculi
CPT/HCPCS: 36415; 74018; 80053; 80061; 82306; 82607; 82746; 83540; 85025; 99212

== ENCOUNTER 2024-01-20 07:26 | Day surgery (SDC) | payer OTHER, SELFPAY ==
[2024-01-18 13:27] VITALS: BMI 35.5
--- NOTE | 2024-01-19 09:25 | P.CONAN_ITS ---
Documented by User: Rosaura Parikh NP 01/19/24 09:26 HPI - Anesthesia Eval Consult details Narrative: 33yo F for Lithotripsy ESW PMFSH Active Problems Active Problems: All Active Problems Hypovitaminosis D (Acute) GERD (gastroesophageal reflux disease) (Acute) Thyroid ca (Acute) Blood in stool (Acute) Chronic prescription opiate use (Acute) Kidney stone on left side (Acute) Microcytic hypochromic anemia (Acute) Migraines (Acute) Physical exam (Acute) Hearing loss (Acute) Vitamin D deficiency (Acute) Family history of breast cancer gene mutation in first degree relative (Acute) Breast pain, left (Acute) Anemia (Acute) Obesity (Acute) Anxiety (Acute) Depression (Acute) Renal colic on left side (Acute) Acute gastritis (Acute) Constipation (Acute) Renal calculi (Acute) Acquired hypothyroidism (Acute) Back pain (Acute) Asthma (Acute) Renal colic (Acute) Past Medical History Medical History BMI 39.0-39.9,adult Anxiety and depression Acute gastritis Constipation Renal calculi Morbid obesity with BMI of 40.0-44.9, adult Acquired hypothyroidism Thyroid ca Renal colic Back pain Asthma Headache Thyroid disease Abdominal pain Mesenteric lymphadenitis Family History Family History Father Diabetes Hyperlipidemia Mother Breast cancer Heart attack Brother No problems noted. Brother No problems noted. Brother No problems noted. Sister No problems noted. Daughter No problems noted. Daughter No problems noted. Surgical History Surgical History History of kidney surgery Hx of section History of surgery Social History Social History Household Members: Family and Children Housing: Apartment Are you a primary adult care provider to a significant other at home: No Do you presently have visiting nurse or other home services: No Alcohol intake: never Patient Tobacco Use Status: Never used Tobacco e-Cigarette/Vaping Use: Never Used Second Hand Smoke Exposure: No Use of substances other than those prescribed or required for medical reasons: No Are you DNR?: No Advance Directives: No Advance Directives Information Provided: Yes service: No Current occupational status: unemployed Cognitive needs: No Hearing needs: No Vision needs: Yes Meds Allergies Allergy/AdvReac Type Severity Reaction Status Date / Time pineapple Allergy Severe Anaphylaxis Verified 11/16/23 11:54 SEAFOOD Allergy Severe ANAPHYLAXIS Uncoded 11/16/23 11:54 Home Medications ?Medication ?Instructions ?Recorded ?Confirmed ?Last Taken ?Type levothyroxine 125 mcg tablet 125 mcg PO DAILY 03/20/22 11/05/23 Unknown History Exam Height,Weight and Vital Signs: Height 4 ft 11 in Weight 79.832 kg Pertinent Lab Results Pertinent Lab Results: Laboratory Tests 11/20/23 11:04 WBC 8.1 Hgb 10.6 L D Hct 33.6 L Plt Count 356 D Sodium 141 Potassium 4.4 Chloride 107 Carbon Dioxide 27 BUN 14 Creatinine 0.71 Assessment and Plan Assessment Anesthesia Assessment: Chart Reviewed Documented by User: Troy Smith MD 01/20/24 11:11 [facility] Past Medical History Medical History BMI 39.0-39.9,adult Anxiety and depression Acute gastritis Constipation Renal calculi Morbid obesity with BMI of 40.0-44.9, adult Acquired hypothyroidism Thyroid ca Renal colic Back pain Asthma Headache Thyroid disease Abdominal pain Mesenteric lymphadenitis Patient : No Family History Family History Father Diabetes Hyperlipidemia Mother Breast cancer Heart attack Brother No problems noted. Brother No problems noted. Brother No problems noted. Sister No problems noted. Daughter No problems noted. Daughter No problems noted. Family history of problems with anesthesia: No Surgical History Surgical History History of kidney surgery Hx of section History of surgery History of Problems with Anesthesia: No Social History Social History Household Members: Family and Children Housing: Apartment Are you a primary adult care provider to a significant other at home: No Do you presently have visiting nurse or other home services: No Alcohol intake: never Patient Tobacco Use Status: Never used Tobacco e-Cigarette/Vaping Use: Never Used Second Hand Smoke Exposure: No Use of substances other than those prescribed or required for medical reasons: No Are you DNR?: No Advance Directives: No Advance Directives Information Provided: Yes service: No Current occupational status: unemployed Cognitive needs: No Hearing needs: No Vision needs: Yes Meds Allergies Allergy/AdvReac Type Severity Reaction Status Date / Time pineapple Allergy Severe Anaphylaxis Verified 11/16/23 11:54 SEAFOOD Allergy Severe ANAPHYLAXIS Uncoded 11/16/23 11:54 Home Medications ?Medication ?Instructions ?Recorded ?Confirmed ?Last Taken ?Type levothyroxine 125 mcg tablet 125 mcg PO DAILY 03/20/22 11/05/23 Unknown History Exam Airway Mallampati Class: II TM Dist: <=3cm Neck ROM: Full Loose/Missing/Broken Teeth: No Heart: ok Lungs: ok Assessment and Plan Assessment Anesthesia Assessment: Anesthesia Plan Discussed Final Anesthetic Review Family History of Problems with Anesthesia: No History of Problems with Anesthesia: No NPO: Yes ASA Class: II Final Preanesthetic Review: No Changes in Pt Med Stat, Meds/Allgs Chart Reviewed and Consent Obtained/Reviewed Patient Risk: Intermediate Procedure Risk: Low Anesthetic Plan Anesthetic Plan: Agree w/ Assess. and Plan and TIVA Disposition: Standard PACU
--- NOTE | ~2024-01-20 | XR_ITS ---
EXAMINATION: XR ABDOMEN KUB CLINICAL INDICATION: Left renal stone. COMPARISON: None available. TECHNIQUE: 3 views of the abdomen. FINDINGS: The bowel gas pattern is nonobstructive. Moderate retained stool in the colon. The renal shadows are mostly obscured by overlying bowel contents. There is a possible 3 mm calculus overlying the lower pole of the left kidney. XR/XR KUB IMPRESSION: Possible 3 mm calculus overlying the lower pole of the left kidney.
[2024-01-20 08:31] VITALS: BMI 39.9
[2024-01-20 08:41] LABS: UPreg QC Valid YES; Urine Pregnancy NEGATIVE (NEGATIVE)
[2024-01-20 08:53] VITALS: BP 123/56; PULSE 68; RESP 16; TEMP 37.2; O2SAT 97
[2024-01-20] MEDS: Lactated Ringers 1,000 ML 100 ML IVCONT (09:06)
[2024-01-20] MEDS: Acetaminophen 1,000 MG/100 ML PIGGYBACK 400 MG IV (09:46)
--- NOTE | 2024-01-20 10:56 | MHC.SHP ---
Pre-Procedural Eval Section A - 24 Hr Update-Section A only Date of Service: 01/20/24 The patient is an INPATIENT: No Changes since office visit: No Cold of Flu in the past 2 weeks, No New Medical Problems, No Changes in Medication and No Patient answered all questions The patient has been examined within 24 hours of the surgical procedure. The History & Physical has been completed within 30 days and I have reviewed it.: No Section B - Complete if H&P > 30 days Chief Complaint: Calculus of kidney Details of Present Illness: 6mm left midpole Relevant Family History (Specify if Yes): No Relevant Social History: None Present Medications: see Short Stay Collaborative assessment Medical History: No relevant PMH History of Previous Operations: Relevant previous surgery/procedure and date(s) Allergies: Allergies Allergy/AdvReac Type Severity Reaction Status Date / Time pineapple Allergy Severe Anaphylaxis Verified 11/16/23 11:54 SEAFOOD Allergy Severe ANAPHYLAXIS Uncoded 11/16/23 11:54 Review of Systems Sugical H&P ROS: Negative: Constitution, Cardiovascular, Respiratory, Neurological, Psychiatric, Hem-Onc, Allergic/Immunologic, Gastrointestinal, Genitourinary, Musculoskeletal, Integumentary, Endocrine and Eyes/Ears/Nose/Throat Exam Surgical H&P Exam: Normal: HEENT, Normal: Heart, Normal: Lungs, Normal: Extremities, Normal: Abdomen, Normal: Skin and Normal: Neurological Plan Diagnosis/Plan: Unchanged (6mm left mid pole ESWL) I have reviewed the history and physical and performed a pertinent physical examination on my patient. No changes have occurred unless specified. Time Spent With Patient Time: Total time managing care of this patient today ____ minutes.
--- NOTE | 2024-01-20 11:32 | W.PM.OPN ---
Operative Note Operative Note Date of Service: 01/20/24 Narrative: PreOperative Diagnosis: left Renal stones Post Operative Diagnosis: left Renal stones Procedure: left ESWL Surgeon: Dr Ronnie Collins Anesthesia: mac/sedation Indications for procedure: The patient understands ESWL may be a staged procedure and subsequent intervention may be required based on imaging after ESWL. Quoted stone clearance rates for a solitary procedure are in the 70-80% range based primarily on stone location. They also understand there is a risk of bleeding to the kidney, infection, damage to adjacent organs, and stone migration following the procedure. - Imaging 5mm left stone Procedure optimization has been performed with IV acetaminophen given in the holding area and 1 L of lactated Ringer's to be given in order to optimize the fluid-stone interface. 20 mg of IV Lasix will be given in the last 5 minutes of the procedure to optimize stone clearance. Procedure: After informed consent was verified the patient was brought to the operating room and placed in a supine position. Anesthesia was performed per protocol. Safety pause time-out was performed. Imaging was displayed in the room and laterality confirmed. ESWL was performed. The 1st 500 shocks were performed at 60 hertz. These were performed with increasing power. Once maximum power was reached the rate was increased to 180 hertz. A total of 2500 shocks were given. Targeted imaging with ultrasound/fluoroscopy showed stone smudging suggestive of disintegration. The patient tolerated the procedure well and was transferred to the recovery area upon completion. Post procedure imaging will be organized. There was no evidence for flank discoloration.
[2024-01-20 11:43] VITALS: BP 81/50; PULSE 64; RESP 16; TEMP 36.8; O2SAT 96
[2024-01-20 11:45] VITALS: BP 127/82; PULSE 67; RESP 16; O2SAT 96
[2024-01-20 11:50] VITALS: BP 125/79; PULSE 79; RESP 16; O2SAT 98
[2024-01-20 11:55] VITALS: BP 125/78; PULSE 67; RESP 16; O2SAT 98
[2024-01-20] MEDS: oxyCODONE HCl Immed Release 5 MG TABLET PO (12:00)
[2024-01-20 12:09] VITALS: BP 135/86; PULSE 59; RESP 16; TEMP 36.6; O2SAT 100
== END 2024-01-20 13:00 | disposition home or self-care (01) ==
PROVIDERS: Nurse Practitioner; PCP Internal Medicine; Visit Provider Urology
PROC: (CPT 50590; principal; 2024-01-20 10:10)
DX: N20.0 Calculus of kidney (principal); Z87.442 Personal history of urinary calculi; E89.0 Postprocedural hypothyroidism; Z85.850 Personal history of malignant neoplasm of thyroid; J45.909 Unspecified asthma, uncomplicated; G43.909 Migraine, unspecified, not intractable, without status migrainosus; F41.8 Other specified anxiety disorders; I88.0 Nonspecific mesenteric lymphadenitis; E66.01 Morbid (severe) obesity due to excess calories; Z68.41 Body mass index [BMI] 40.0-44.9, adult; Z79.899 Other long term (current) drug therapy; Z98.890 Other specified postprocedural states; Z56.0 Unemployment, unspecified
CPT/HCPCS: 50590; 74018; 81025; J0131; J2704; J3010

== ENCOUNTER → 2024-01-20 07:26 | Outpatient (BNV) | payer OTHER, SELFPAY | PROVIDERS: PCP Internal Medicine; Visit Provider Urology | DX: N20.0 Calculus of kidney (principal) | CPT/HCPCS: 50590 ==

== ENCOUNTER 2024-02-08 10:20 | Outpatient (REF) | payer OTHER, SELFPAY ==
--- NOTE | ~2024-02-08 | US_ITS ---
EXAMINATION: US RETROPERITONEAL LIMITED (RENAL ONLY) CLINICAL INFORMATION: Calculus of kidney. COMPARISON: X-ray abdomen KUB 01/20/2024 and 11/20/2023. Renal ultrasound 06/26/2022. CT abdomen and pelvis 06/11/2022. Renal ultrasound 02/20/2022. TECHNIQUE: Real-time imaging of the kidneys. Limited visualization due to bowel gas. FINDINGS: RIGHT KIDNEY: 12.2 x 4.7 x 5.2 cm (SAG x AP x TRV). No hydronephrosis. No renal calculi. Renal cortical thickness is normal. Limited visualization. LEFT KIDNEY: 11.2 x 4.2 x 5.5 cm (SAG x AP x TRV). No hydronephrosis. Left renal 5 mm upper pole calculus. Renal cortical thickness is normal. Limited visualization. US/US renal BI IMPRESSION: Left renal 5 mm upper pole calculus. No hydronephrosis.
== END 2024-02-08 10:21 | disposition home or self-care (01) ==
LOC: HO.US 10:20
PROVIDERS: PCP Internal Medicine; Visit Provider Urology
DX: N20.0 Calculus of kidney (principal)
CPT/HCPCS: 76775

== ENCOUNTER 2024-02-09 10:28 | Outpatient (AMB) | payer OTHER, SELFPAY ==
--- NOTE | 2024-02-09 10:31 | A.OFFVIS_ITS ---
Vital Signs 02/09/24 10:35 Height 4 ft 11 in Weight 200 lb 9.93 oz BMI 40.5 BP 108/63 Blood Pressure Location Lt brachial Position Sitting Pulse 69 Intake Visit Reasons: melena Intake Note: Crissy presents in the office as a new patient for Melena. CC: She states that she is sometimes having blood in her stools. She has constipation and has been dealing her whole life with it. Machine Bookkeeper Required: No Allergies pineapple Allergy (Severe, Verified 02/09/24 10:32) Anaphylaxis SEAFOOD Allergy (Severe, Uncoded 02/09/24 10:32) ANAPHYLAXIS HPI HPI melena: Details: 33-year-old female with past medical history of iron-deficiency anemia, asthma, GERD, kidney stone, hypothyroidism, anxiety, depression, constipation is here today for initial consultation. Patient was sent to us by her PCP for anemia and rectal bleed. Patient reports that she has been constipated for very long time. Uses senna and Colace and reports that it is not helping. Patient reports that she has to strain. When she does she has blood after bowel movement. Patient was previously seen by Dr. Canales for microcytic hypochromic anemia. Patient was receiving iron infusion. Patient reports that she has very painful and long menses. Patient reports that she bleeds for the 1st 5 days with multiple clots. Patient is taking iron supplements twice a day. Has not followed up with Dr. Canales for couple years. Patient reports that she tried to follow-up with her OBGYN at [facility] and was unable to get appointment till next year. Patient reports acid reflux, however she states that it is under control for the most part with omeprazole. Patient denies any dyspepsia, dysphagia or odynophagia. [facility] Medical History BMI 39.0-39.9,adult Anxiety and depression Acute gastritis Constipation Renal calculi Morbid obesity with BMI of 40.0-44.9, adult Acquired hypothyroidism Thyroid ca Renal colic Back pain Asthma Headache Thyroid disease Abdominal pain Mesenteric lymphadenitis Surgical History History of kidney surgery Hx of section History of surgery Family History Father Diabetes Hyperlipidemia Mother Breast cancer Heart attack Brother No problems noted. Brother No problems noted. Brother No problems noted. Sister No problems noted. Daughter No problems noted. Daughter No problems noted. Social History Household Members: Family and Children Housing: Apartment Are you a primary career development specialist to a significant other at home: No Do you presently have visiting nurse or other home services: No Alcohol intake: never Patient Tobacco Use Status: Never used Tobacco e-Cigarette/Vaping Use: Never Used Second Hand Smoke Exposure: No service: No Current occupational status: unemployed Cognitive needs: No Hearing needs: No Vision needs: Yes Review of Systems Const Denies weight gain and Denies weight loss ENT Reports no additional complaints, Denies dysphagia and Denies odynophagia Card Reports no additional complaints Resp Reports no additional complaints GI Denies abdominal pain, Denies belching, Denies melena, Reports bloating, Reports hematochezia, Reports constipation, Denies dysphagia, Denies excessive flatus, Denies dyspepsia, Reports heartburn, Denies diarrhea, Denies loose stools, Denies nausea, Denies odynophagia and Denies vomiting Reports no additional complaints Musc Reports no additional complaints Neuro Reports no additional complaints Psych Reports no additional complaints Endo Reports no additional complaints Physical Exam Vital Signs: Last Vital Signs Pulse 69 02/09/24 10:35 BP 108/63 02/09/24 10:35 BMI result Body Mass Index 40.5 Const General: healthy appearing and no acute distress Nutritional Appearance: obese Orientation/consciousness: patient oriented x3 Resp Effort & Inspection: normal respiratory effort, able to speak in complete sentences, no tracheal deviation and symmetric chest movement Auscultation: clear to auscultation bilaterally Cardio Rate: regular rate GI Inspection: Yes normal to inspection, No distended and Yes obesity Palpation (GI): Soft to palpation, not firm, nontender and No hepatosplenomegaly present Auscultation: normal bowel sounds General: Yes no CVA tenderness Back/Spine/Pelvis Back: no CVA tenderness Skin General skin exam: elasticity normal, turgor normal and dry skin Neuro General: patient oriented x3 Psych Appearance: grossly normal Mental Status: mental status grossly normal Assessment & Plan Assessment & Plan (1) GERD (gastroesophageal reflux disease): Code(s): K21.9 - Gastro-esophageal reflux disease without esophagitis Category: Medical (2) Blood in stool: Code(s): K92.1 - Melena Category: Medical (3) Menorrhagia: Code(s): N92.0 - Excessive and frequent menstruation with regular cycle (4) Anemia: Code(s): D64.9 - Anemia, unspecified Category: Medical Qualifiers: Anemia type: iron deficiency Iron deficiency anemia type: other iron deficiency Qualified Code(s): D50.8 - Other iron deficiency anemias Plan Patient reports constipation will change senna to Dulcolax continue taking Colace. Will check thyroid level, vitamin-D, CBC B12 and folate. Patient will be referred to OBGYN as she reports very heavy periods. Patient does admit to be feeling tired will send her to recheck CBC. Continue taking omeprazole daily. Avoid dietary triggers and late night snacking. Patient will report back to the office in 2 months. She will call the office if she will have any worsening symptoms. She is agreeable to this plan and verbalizes understanding of instructions. She was given the opportunity to ask questions and all questions answered. Thank you for allowing me to participate in her care. Orders: Orders TSH reflex Free T4 Today K59.00 - Constipation, unspecified Vitamin D 25-OH (D2 and D3) Today E55.9 - Vitamin D deficiency, unspecified Complete Blood Count no Diff Today K21.9 - Gastro-esophageal reflux disease without esophagitis Vitamin B12 and Folate Today R19.7 - Diarrhea, unspecified Referrals RADIAGRAPH OPERATOR Referral N92.0 - Excessive and frequent menstruation with regular cycle Medications: New bisacodyl (Dulcolax (bisacodyl)) 10 mg (2 x 5 mg) PO BEDTIME 180 tabs 4RF Changed From docusate sodium (Colace) 100 mg PO DAILY 30 caps 3RF To docusate sodium (Colace) 200 mg (2 x 100 mg) PO DAILY 180 caps 3RF Refilled omeprazole 40 mg PO DAILY 90 caps 2RF Discontinued sennosides (senna) Discontinued Reason: Doctor's Order 8.6 mg PO BEDTIME 90 days PRN 90 tabs 1RF constipation Ventolin HFA 90 mcg/actuation (albuterol sulfate) Discontinued Reason: Duplicate 2 puffs inhalation Q6H 30 days PRN 8 grams 2RF shortness of breath or wheezing NS J45.909 - Unspecified asthma, uncomplicated Coding Level of Care Code New Pt Level 4 (56983) Diagnoses GERD (gastroesophageal reflux disease) K21.9 Blood in stool K92.1 Menorrhagia N92.0 Other iron deficiency anemia D50.8 Anemia type: iron deficiency Iron deficiency anemia type: other iron deficiency Time Spent (min) 45 Comment 30 minutes spent with patient and additional 15 minutes spent reviewing her records
[2024-02-09 10:35] VITALS: BP 108/63; PULSE 69; BMI 40.5
== END 2024-02-09 11:04 | disposition home or self-care (01) ==
PROVIDERS: PCP Internal Medicine; Visit Provider Nurse Practitioner Family
DX: K21.9 Gastro-esophageal reflux disease without esophagitis (principal); K92.1 Melena; N92.0 Excessive and frequent menstruation with regular cycle; D50.8 Other iron deficiency anemias
CPT/HCPCS: 99204

== ENCOUNTER 2024-02-09 10:28 | Outpatient (REF) | payer OTHER, SELFPAY ==
[2024-02-09 11:42] LABS: Hemoglobin 8.7 g/dl (12.0-16.0); Mean Corpuscular Hemoglobin 20.7 pg (27.0-33.0); Mean Platelet Volume 9.8 fL (9.4-12.3); Platelet Count 360 X10*3/uL (160-400); Red Cell Distribution Width 17.8 % (11.0-16.0); White Blood Count 6.3 X10*3/uL (4.8-10.8)
[2024-02-09 12:28] LABS: TSH reflex Free T4 1.69 uIU/mL (0.32-4.0)
[2024-02-09 12:43] LABS: Vitamin B12 232 pg/mL (200-900)
[2024-02-13 16:08] LABS: Vitamin D 25-OH, D2 <4 ng/mL; Vitamin D 25-OH, D3 17 ng/mL; Vitamin D 25-OH, Total 17 ng/mL (30-100)
== END 2024-02-09 10:29 | disposition home or self-care (01) ==
LOC: HO.LAB 10:28
PROVIDERS: PCP Internal Medicine; Visit Provider Nurse Practitioner Family
DX: K21.9 Gastro-esophageal reflux disease without esophagitis (principal); K59.00 Constipation, unspecified; K92.1 Melena; E55.9 Vitamin D deficiency, unspecified; R19.7 Diarrhea, unspecified; F32.A Depression, unspecified; N92.0 Excessive and frequent menstruation with regular cycle; D50.8 Other iron deficiency anemias
CPT/HCPCS: 36415; 82306; 82607; 82746; 84443; 85027; 99202

== ENCOUNTER 2024-03-02 13:49 | Outpatient (AMB) | payer OTHER, SELFPAY ==
--- NOTE | 2024-03-02 13:46 | MHC.OFFVIS ---
Intake Visit Reasons: Post-op ESWL- follow up( 02/07) Intake Note: Patient is present for post-op ESWL f/u Urology Medication:vitamin b6, naproxen Antibiotic Allergy:none Blood Thinner:none Allergies pineapple Allergy (Severe, Verified 03/02/24 13:47) Anaphylaxis SEAFOOD Allergy (Severe, Uncoded 03/02/24 13:47) ANAPHYLAXIS Medication List - Last Reconciled 03/02/24 by Guille Aldana MD albuterol sulfate 90 mcg/actuation (ProAir HFA) 2 puffs inhalation Q6H PRN 30 days bisacodyl (Dulcolax (bisacodyl)) 10 mg (2 x 5 mg) PO BEDTIME cholecalciferol (vitamin D3) 50 mcg PO DAILY 90 days docusate sodium (Colace) 200 mg (2 x 100 mg) PO DAILY ferrous sulfate 325 mg PO TID 90 days levothyroxine 112 mcg PO DAILY omeprazole 40 mg PO DAILY pyridoxine (vitamin B6) 100 mg PO DAILY 90 days topiramate 25 mg PO BEDTIME 90 days tramadol 50 mg PO Q8H PRN 30 days HPI Comments Details: 03/02/24--status post ESWL left kidney stone, telehealth follow-up. And she had a follow-up renal ultrasound, she states that she did not pass any stone fragments, I have discussed that kidney stone did not fragment successfully with the ESWL. Discussed repeating the procedure versus continued monitoring as she currently is asymptomatic. Plan will continue to monitor conservatively. Follow-up KUB in 6 months. Review of chart: 11/20/2023--Crissy is a 33-year-old female with history of kidney stones. She was seen last on 07/10/2022. She states since that time she has not seen blood in the urine. She gets occasional discomfort in the left kidney area but also feels discomfort on the right side. She has a chronic back issue and is prescribed tramadol p.r.n.. History of thyroid cancer and is on Topamax for migraines. No recent imaging. Had CT and renal ultrasound June 2022 noting left nephrolithiasis. The patient is interested in proceeding with treatment for kidney stone. Will check a KUB x-ray. Discussed left ESWL, reviewed risks and benefits versus discussed ureteroscopy as an alternative therapy option. Plan left ESWL. 07/10/22--32-year-old female history followed for kidney stones PMH -- asthma, acquired hypothyroidism secondary to thyroidectomy from history of thyroid CA, anxiety,migraine anemia--followed Hematology has undergone 1 unit RBCs on 04/08 and is currently receiving IV Venofer. She was in the ED --seen on 06/11 for 3 days of right flank pain history of kidney stone, vomiting and epigastric pain. CT unremarkable --5 mm and 4 mm nonobstructing stones in the left kidney with no hydronephrosis. Patient's exam was consistent with acute gastritis and patient was started on Prilosec. She had a renal sono 06/26/22 -- 6 mm stone left kidney reported. Discussed treatment options to include Left ESWL. Discussed risks to include but not limited to, blood in the urine, bruising to the skin, kidney hematoma, possible need for another procedure if a stone fragment obstructs the ureter while passing, possible need to repeat procedure if stone is not completely fragmented. [facility] Medical History BMI 39.0-39.9,adult Anxiety and depression Acute gastritis Constipation Renal calculi Morbid obesity with BMI of 40.0-44.9, adult Acquired hypothyroidism Thyroid ca Renal colic Back pain Asthma Headache Thyroid disease Abdominal pain Mesenteric lymphadenitis Surgical History History of kidney surgery Hx of section History of surgery Family History Father Diabetes Hyperlipidemia Mother Breast cancer Heart attack Brother No problems noted. Brother No problems noted. Brother No problems noted. Sister No problems noted. Daughter No problems noted. Daughter No problems noted. Social History Household Members: Family and Children Housing: Apartment Are you a primary adult live in caregiver to a significant other at home: No Do you presently have visiting nurse or other home services: No Alcohol intake: never Patient Tobacco Use Status: Never used Tobacco e-Cigarette/Vaping Use: Never Used Second Hand Smoke Exposure: No service: No Current occupational status: unemployed Cognitive needs: No Hearing needs: No Vision needs: Yes Review of Systems Const All systems reviewed & are unremarkable except as noted in HPI and below Reports no additional complaints Eyes Reports no additional complaints ENT Reports no additional complaints Card Reports no additional complaints Resp Reports no additional complaints GI Reports no additional complaints Reports as per HPI Musc Reports no additional complaints Skin/Breast Reports system reviewed and no additional complaints, except as documented Neuro Reports no additional complaints Psych Reports no additional complaints Endo Reports no additional complaints Dmitry/Lymph Reports no additional complaints Aller/Immun Reports no additional complaints Telehealth Telehealth Telehealth Platform: Telephone Location of provider rendering services: practice address Location of patient: address on file Patient Identification confirmed using: Name, : Yes Telehealth method: voice only Patient verbally consented to treatment: Yes Patient verbally consented to billing insurance company: Yes Patient informed of any privacy concerns related to visit: Yes Minutes spent on Phone/Video with Pt.: 15 Results Reviewed Results Reviewed: Date of Service: 06/11/22 EXAMINATION: CT abdomen pelvis wo IV con CLINICAL INFORMATION: Reason for Exam r flank pain COMPARISON: Prior CT 2019 FINDINGS: LOWER THORAX: Included lung bases are clear. HEPATOBILIARY: No focal hepatic lesions. No biliary ductal dilatation. GALLBLADDER: Gallbladder unremarkable. SPLEEN: Spleen is normal in size. PANCREAS: No focal mass or ductal dilatation. STOMACH AND GASTROINTESTINAL TRACT: Stomach is grossly unremarkable. There is no bowel distention or thickening. No CT evidence of appendicitis. ADRENALS: No adrenal nodules. KIDNEYS/URETERS: There is 5 mm nonobstructing stone lower calyx left kidney, 4 mm nonobstructing stone middle calyx left kidney. Kidneys otherwise normal in size, texture and attenuation, no renal mass, cyst or obstruction. Perinephric fat are clear. URINARY BLADDER: Partially decompressed. PELVIC VISCERA: Unremarkable PERITONEUM: No free air or fluid. LYMPH NODES: No lymphadenopathy. VASCULAR:Abdominal aorta normal in size, no aneurysm found. BONES, ABDOMINAL WALL AND SOFT TISSUES: Age-appropriate changes of the spine and skeletal system, no destructive osteolytic or osteosclerotic bone lesion found IMPRESSION: ? *? No CT evidence of acute intra-abdominal process to explain patient's pain symptoms.? *? There are nonobstructing stones in the left kidney, 5 mm and 4 mm. No hydronephrosis. Date of Service: 06/26/22 EXAMINATION: US RETROPERITONEAL LIMITED (RENAL ONLY) CLINICAL INFORMATION: Calculus of kidney. COMPARISON: CT abdomen and pelvis 06/11/2022.? TECHNIQUE: Real-time imaging of the kidneys.? FINDINGS: RIGHT KIDNEY: 11.8 x 5.2 x 5.2 cm (SAG x AP x TRV). The kidney is normal in size, contour, and echogenicity. Renal cortical thickness is normal. No calculi or focal parenchymal lesions. No hydronephrosis. LEFT KIDNEY: 11.0 x 5.0 x 5.7 cm (SAG x AP x TRV). The kidney is normal in size, contour, and echogenicity. Renal cortical thickness is normal. No focal parenchymal lesions or hydronephrosis. 6 mm nonobstructing left midpole renal stone, previously measured 5 mm, similar when accounting for differences in technique. A second previously seen left lower pole renal stone was not identified sonographically. IMPRESSION:? 6 mm nonobstructing left midpole renal stone, similar when accounting for differences in technique. A second previously seen left lower pole renal stone was not identified sonographically. ? Assessment & Plan Assessment & Plan (1) Kidney stone on left side: Code(s): N20.0 - Calculus of kidney Category: Medical Plan I have discussed that kidney stone did not fragment successfully with the ESWL. Discussed repeating the procedure versus continued monitoring as she currently is asymptomatic. Plan will continue to monitor conservatively. Follow-up KUB in 6 months. Orders: Orders XR KUB 6 Months N20.0 - Calculus of kidney Patient Instructions: The patient had an opportunity to ask questions regarding treatment plan. The patient expressed understanding and agreement with the above treatment plan. The patient is aware they should contact our office by phone for worsening of their current condition or the appearance of new symptoms. Compliance is encouraged with any medications and followup testing that is ordered. It is a privilege to be allowed the opportunity to participate in the urologic care of your patient. If you have any questions or concerns regarding treatment for the above conditions please do not hesitate to contact me. The office telephone contact is [phone]. This note is constructed in part using voice recognition software. While every effort has been made to ensure accuracy concrete conveyor operator errors may have been included. Yours sincerely, Guille Aldana MD Coding Level of Care Code Tele Est Pt Level 3 (84532) Diagnoses Kidney stone on left side N20.0
== END 2024-03-02 14:27 | disposition home or self-care (01) ==
LOC: HO.HUSH 13:49
PROVIDERS: PCP Internal Medicine; Visit Provider Urology
DX: N20.0 Calculus of kidney (principal)
CPT/HCPCS: 99024

== ENCOUNTER → 2024-03-02 13:49 | Outpatient (BNVA) | payer OTHER, SELFPAY | PROVIDERS: PCP Internal Medicine; Visit Provider Urology ==

== ENCOUNTER 2024-03-22 14:57 | Outpatient (AMB) | payer OTHER, SELFPAY ==
--- NOTE | 2024-03-22 15:07 | A.OFFPC_ITS ---
Vital Signs 03/22/24 15:08 Height 4 ft 11 in Weight 202 lb BMI 40.8 BP 112/80 Blood Pressure Location Lt brachial Position Sitting Intake Visit Reasons: Annual Exam Intake Note: Patient here for an Annual Physical Exam Data Processing Auditor Required: No Accompanied by: Significant Other Allergies pineapple Allergy (Severe, Verified 03/22/24 15:16) Anaphylaxis SEAFOOD Allergy (Severe, Uncoded 03/22/24 15:16) ANAPHYLAXIS Medication List - Last Reconciled 03/22/24 by Sravani Barron MD albuterol sulfate 90 mcg/actuation (ProAir HFA) 2 puffs inhalation Q6H PRN 30 days bisacodyl (Dulcolax (bisacodyl)) 10 mg (2 x 5 mg) PO BEDTIME cholecalciferol (vitamin D3) 50 mcg PO DAILY 90 days docusate sodium (Colace) 200 mg (2 x 100 mg) PO DAILY ferrous sulfate 325 mg PO TID 90 days levothyroxine 112 mcg PO DAILY omeprazole 40 mg PO DAILY pyridoxine (vitamin B6) 100 mg PO DAILY 90 days topiramate 25 mg PO BEDTIME 90 days tramadol 50 mg PO Q8H PRN 30 days Tobacco use date assessed: 11/05/23 Dental Screening Dental Screen Date: 11/05/23 HPI HPI Comments History of Present Illness Details This is a 33-year-old female with mild major depression, morbid obesity and history of thyroid cancer that comes today accompanied by significant other for her physical exam. She follows with counseling for her depression which has been stable. She is morbidly obese with a BMI of 40.8 and was advised to do diet and exercise to reach BMI goal less than 30. 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 Pap smear done about a year ago at [facility] and as per patient was normal. [facility] Medical History (Updated 03/22/24 @ 15:29 by Sravani Barron MD) Morbid obesity with BMI of 40.0-44.9, adult BMI 39.0-39.9,adult Anxiety and depression Acute gastritis Constipation Renal calculi Acquired hypothyroidism Thyroid ca Renal colic Back pain Asthma Headache Thyroid disease Abdominal pain Mesenteric lymphadenitis Surgical History History of kidney surgery Hx of section History of surgery Family History Father Diabetes Hyperlipidemia Mother Breast cancer Heart attack Brother No problems noted. Brother No problems noted. Brother No problems noted. Sister No problems noted. Daughter No problems noted. Daughter No problems noted. Social History Household Members: Family and Children Housing: Apartment Are you a primary healthcare network consultant to a significant other at home: No Do you presently have visiting nurse or other home services: No Alcohol intake: never Patient Tobacco Use Status: Never used Tobacco e-Cigarette/Vaping Use: Never Used Second Hand Smoke Exposure: No service: No Current occupational status: unemployed Cognitive needs: No Hearing needs: No Vision needs: Yes Questionnaire PHQ-9 Over the last 2 weeks, how often have you been bothered by any of the following problems? 1. Little interest or pleasure in doing things: not at all 2. Feeling down, depressed, or hopeless: not at all 3. Trouble falling or staying asleep, or sleeping too much: several days 4. Feeling tired or having little energy: several days 5. Poor appetite or overeating: several days 6. Feeling bad about yourself - or that you are a failure or have let yourself or your family down: not at all 7. Trouble concentrating on things, such as reading the newspaper or watching television: not at all 8. Moving or speaking so slowly that other people could have noticed. Or the opposite - being so fidgety or restless that you have been moving around a lot more than usual: not at all 9. Thoughts that you would be better off or of hurting yourself in some way: not at all Total score: 3 Depression Screening Interpretation: Positive Depression Screening Follow-up: Existing condition, Community Mental Health Worker F/U and Follow-up Visit Requested Depression Screening Done: Yes 57939 - PHQ-9 Billing: Yes Source: Developed by Drs. Truman Leon, Kristyn Manriquez, Jose Garcia and colleagues, with an educational minal from [employer]. Thrive Questionnaire Date Thrive assessed: 03/22/24 I am a: Patient What is your living situation today?: I have a steady place to live Within the past 12 months, did the food you bought not last and you didn't have the money to get more?: I choose not to answer this question Within the past 12 months, did you worry whether your food would run out before you got money to buy more?: I choose not to answer this question Do you have trouble paying for medicines?: I choose not to answer this question Do you have trouble getting transportation to medical appointments?: No Do you have trouble paying your heating and electricity bill?: I choose not to answer this question Do you have trouble taking care of your child, family member or friend?: I choose not to answer this question Do you have trouble with day-to-day activities such as bathing, preparing meals, shopping, managing finances, etc.?: I choose not to answer this question Are you currently unemployed and looking for a job?: I choose not to answer this question Are you interested in more education?: I choose not to answer this question Please select the resources that you would like help with: None Currently or been in a relationship where the following occur: No concerns reported THRIVE Score: 0 AUDIT C Alcohol Use Questionnaire (AUDIT-C) 1. How often do you have a drink containing alcohol?: Never Total Score: 0 Score Reviewed/Action Taken: No CECILIA-7 AMB Questionnaire CECILIA-7 Date CECILIA - 7 assessed: 03/22/24 Feeling nervous, anxious, or on edge: 0 = Not at all Not being able to stop or control worryin = Not at all Worrying too much about different things: 0 = Not at all Trouble relaxin = Not at all Being so restless that it is hard to sit still: 0 = Not at all Becoming easily annoyed or irritable: 0 = Not at all Feeling afraid as if something awful might happen: 0 = Not at all Total CECILIA-7 score (0-4 normal; 5-9 mild; 10-14 moderate; 15-21 severe): 0 Source: Developed by Drs. Truman Leon, Kristyn Manriquez, Jose Garcia and colleagues, with an educational minal from [employer]. CECILIA-7 Assessment Billing CECILIA-7 Assessment Tool: CECILIA-7 Assessment 37667 Physical exam (Primary Care) Vital Signs: Last Vital Signs BP 112/80 03/22/24 15:08 BMI result Body Mass Index 40.8 BMI Assessment/Plan discussion: High BMI High, discussed plan: lifestyle, weight reduction, dietary and physical activity Tobacco/Smoking Status: Tobacco use Status Tobacco use date assessed 11/05/23 03/22/24 15:13 Patient Tobacco Use Status Never used Tobacco 03/22/24 15:13 e-Cigarette/Vaping Use Never Used 03/22/24 15:13 PHQ-9: PHQ-9 Score PHQ-9: Total score 3 03/22/24 15:13 Depression Screening Interpretation: Positive Depression Screening Follow-up: Existing condition, Community Mental Health Worker F/U and Follow-up Visit Requested Thrive Assessment: Date of Thrive Assessment Date Thrive assessed 03/22/24 03/22/24 15:13 Currently or been in a relationship where the following occur: No concerns reported Assessment and Plan Assessment & Plan (1) Physical exam: Code(s): Z00.00 - Encounter for general adult medical examination without abnormal findings Plan: Repeat in a year. (2) Thyroid ca: Code(s): C73 - Malignant neoplasm of thyroid gland Plan: Follow-up with endocrinology. (3) Morbid obesity with BMI of 40.0-44.9, adult: Code(s): E66.01 - Morbid (severe) obesity due to excess calories; Z68.41 - Body mass index [BMI] 40.0-44.9, adult Plan: Start diet and exercise. BMI goal is less than 30. (4) Mild major depression: Code(s): F32.0 - Major depressive disorder, single episode, mild Plan: Continue counseling. Orders: Orders Comprehensive [place]. Panel Fast Today Z00.00 - Encounter for general adult medical examination without abnormal findings Lipid Panel Today Z00.00 - Encounter for general adult medical examination without abnormal findings Vitamin D 25-OH (D2 and D3) Today E55.9 - Vitamin D deficiency, unspecified Coding Level of Care Code Est Pt Prev Care [id number]) Diagnoses Physical exam Z00.00 Thyroid ca C73 Morbid obesity with BMI of 40.0-44.9, adult E66.01; Z68.41 Mild major depression F32.0 Additional Codes CECILIA-7 Assessment Billing - CECILIA-7 Assessment Tool: CECILIA-7 Assessment [id number] ([id number]) Time Spent (min) 31
[2024-03-22 15:08] VITALS: BP 112/80; BMI 40.8
== END 2024-03-22 15:28 | disposition home or self-care (01) ==
PROVIDERS: PCP Internal Medicine; Visit Provider Internal Medicine
DX: Z00.00 Encounter for general adult medical examination without abnormal findings (principal); C73 Malignant neoplasm of thyroid gland; E66.01 Morbid (severe) obesity due to excess calories; Z68.41 Body mass index [BMI] 40.0-44.9, adult; F32.0 Major depressive disorder, single episode, mild

== ENCOUNTER → 2024-03-22 14:57 | Outpatient (BNVA) | payer OTHER, SELFPAY | PROVIDERS: PCP Internal Medicine; Visit Provider Internal Medicine | DX: Z00.00 Encounter for general adult medical examination without abnormal findings (principal); C73 Malignant neoplasm of thyroid gland; E66.01 Morbid (severe) obesity due to excess calories; Z67.41 Type O blood, Rh negative; F32.0 Major depressive disorder, single episode, mild | CPT/HCPCS: 96127; 99395 ==

== ENCOUNTER 2024-03-23 10:06 | Outpatient (REF) | payer OTHER, SELFPAY ==
[2024-03-23 11:50] LABS: Alanine Aminotransferase 15 U/L (0-31); Albumin Level 3.7 g/dL (3.5-5.0); Alkaline Phosphatase 71 U/L (39-117); Anion Gap 11 (12-20); Aspartate Amino Transferase 13 U/L (5-31); Bilirubin Total 0.2 mg/dL (0.0-1.0); Blood Urea Nitrogen 11 mg/dL (9-16); Calcium 8.9 mg/dL (8.4-10.2); Carbon Dioxide 26 mmol/L (22-29); Chloride 108 mmol/L (96-108); Cholesterol 102 mg/dL (<200); Estimated Glomerular Filt Rate > 60; Glucose Fasting 92 mg/dL (60-99); HDL Cholesterol 31 mg/dL (>40); LDL Cholesterol Calculated 47 mg/dL (<100); Potassium 4.3 mmol/L (3.3-5.1); Sodium 141 mmol/L (135-145); Total Protein 6.9 g/dL (6.5-8.0); Triglycerides 122 mg/dL (<150)
[2024-03-28 16:48] LABS: Vitamin D 25-OH, D2 <4 ng/mL; Vitamin D 25-OH, D3 20 ng/mL; Vitamin D 25-OH, Total 20 ng/mL (30-100)
== END 2024-03-23 10:07 | disposition home or self-care (01) ==
LOC: HO.LAB 10:06
PROVIDERS: PCP Internal Medicine; Visit Provider Internal Medicine
DX: Z00.00 Encounter for general adult medical examination without abnormal findings (principal); E55.9 Vitamin D deficiency, unspecified
CPT/HCPCS: 36415; 80053; 80061; 82306

== ENCOUNTER 2024-04-27 09:00 | Outpatient (RCR) | payer OTHER, SELFPAY ==
[2024-03-08 09:15] VITALS: BP 127/72; PULSE 66; RESP 16; TEMP 37.1; O2SAT 98
[2024-03-08] MEDS: Iron Sucrose Complex 200 MG in 0.9 % Sodium Chloride 100 ML 440 MG IV (09:22)
[2024-03-16 10:54] VITALS: BP 132/83; PULSE 77; RESP 16; TEMP 36.6; O2SAT 100
[2024-03-16] MEDS: Iron Sucrose Complex 200 MG in 0.9 % Sodium Chloride 100 ML 440 MG IV (11:02)
[2024-03-23 09:34] VITALS: BP 128/60; PULSE 64; RESP 16; TEMP 36.7; O2SAT 99
[2024-03-23] MEDS: Iron Sucrose Complex 200 MG in 0.9 % Sodium Chloride 100 ML 440 MG IV (09:40)
[2024-03-23] MEDS: 0.9 % Sodium Chloride Flush 10 ML SYRINGE 5 ML IVFLUSH (09:58)
[2024-03-30 08:45] VITALS: BP 144/75; PULSE 67; RESP 14; TEMP 36.9; O2SAT 98
[2024-03-30] MEDS: Iron Sucrose Complex 200 MG in 0.9 % Sodium Chloride 100 ML 440 MG IV (08:53)
[2024-03-30] MEDS: 0.9 % Sodium Chloride Flush 10 ML SYRINGE 5 ML IVFLUSH (09:11)
--- NOTE | 2024-03-30 09:30 | HO.INF ---
phlebotomy at bedside
[2024-03-30 09:37] LABS: Hematocrit 34.2 % (37.0-47.0); Hemoglobin 10.2 g/dl (12.0-16.0); Mean Corpuscular HGB Conc 29.8 g/dl (31.0-35.0); Mean Corpuscular Hemoglobin 21.4 pg (27.0-33.0); Mean Corpuscular Volume 71.7 fL (80.0-98.0); Mean Platelet Volume 9.4 fL (9.4-12.3); Platelet Count 322 X10*3/uL (160-400); Red Blood Count 4.77 X10*6/uL (4.20-5.50); Red Cell Distribution Width 24.7 % (11.0-16.0); White Blood Count 6.3 X10*3/uL (4.8-10.8)
[2024-03-30 10:13] LABS: Ferritin 112 ng/mL (10-122)
[2024-04-06 08:53] VITALS: BP 126/72; PULSE 72; RESP 14; TEMP 36.6; O2SAT 98
[2024-04-06] MEDS: Iron Sucrose Complex 200 MG in 0.9 % Sodium Chloride 100 ML 440 MG IV (09:16)
[2024-04-13 08:40] VITALS: BP 139/76; PULSE 68; RESP 16; TEMP 36.6; O2SAT 100
[2024-04-13] MEDS: Iron Sucrose Complex 200 MG in 0.9 % Sodium Chloride 100 ML 440 MG IV (08:48)
[2024-04-13] MEDS: 0.9 % Sodium Chloride Flush 10 ML SYRINGE 5 ML IVFLUSH (09:05)
[2024-04-20 08:46] VITALS: BP 122/53; PULSE 71; RESP 14; TEMP 36.2; O2SAT 98
[2024-04-20] MEDS: Iron Sucrose Complex 200 MG/10 ML VIAL IVPUSH (08:52)
[2024-04-27 08:52] VITALS: BP 125/62; PULSE 72; RESP 16; TEMP 36.7; O2SAT 100
[2024-04-27] MEDS: Iron Sucrose Complex 200 MG/10 ML VIAL IVPUSH (09:01)
[2024-04-27] MEDS: 0.9 % Sodium Chloride Flush 10 ML SYRINGE 5 ML IVFLUSH (09:01)
[2024-04-27 09:43] LABS: Basophils Percent Auto 0.3 % (0-2); Eosinophils Absolute Auto 0.2 X10*3/uL (0.0-0.4); Eosinophils Percent Auto 2.1 % (0-4); Hematocrit 40.2 % (37.0-47.0); Hemoglobin 12.4 g/dl (12.0-16.0); Imm Gran Abs Auto 0.02 X10*3/uL (0.00-0.03); Imm Gran Pct Auto 0.3 % (0.0-0.4); Lymphocytes Absolute Auto 1.2 X10*3/uL (1.2-4.9); Lymphocytes Percent Auto 17.4 % (20-40); MANUAL DIFF FLAG SCAN; Mean Corpuscular HGB Conc 30.8 g/dl (31.0-35.0); Mean Corpuscular Hemoglobin 23.8 pg (27.0-33.0); Mean Corpuscular Volume 77.2 fL (80.0-98.0); Monocytes Absolute Auto 0.4 X10*3/uL (0.1-1.2); Monocytes Percent Auto 5.4 % (2-11); Neutrophils Absolute Auto 5.3 x10*3/uL (2.0-8.3); Neutrophils Percent Auto 74.5 % (45-73); PLT CLUMP 1; Red Blood Count 5.21 X10*6/uL (4.20-5.50); Red Cell Distribution Width 24.5 % (11.0-16.0); SCAN SMEAR FLAG 1
[2024-04-27 09:44] LABS: White Blood Count 7.1 X10*3/uL (4.8-10.8)
[2024-04-27 10:03] LABS: Platelet Count 235 X10*3/uL (160-400); SLIDE REVIEW VERIFIED
[2024-04-27 10:14] LABS: Ferritin 137 ng/mL (10-122)
== END 2024-04-27 09:13 | disposition home or self-care (01) ==
LOC: HO.INF 09:00
PROVIDERS: Visit Provider Internal Medicine Medical Oncology
DX: D64.9 Anemia, unspecified (principal)
CPT/HCPCS: 36415; 82728; 85025; 85027; 96365; 96374; J1756

== ENCOUNTER 2024-05-17 09:46 | Outpatient (AMB) | payer OTHER, SELFPAY ==
[2024-05-17 09:53] VITALS: BP 118/74; BMI 41.2
--- NOTE | 2024-05-17 09:53 | A.OFFVIS_ITS ---
Vital Signs 05/17/24 09:53 Height 4 ft 11 in Weight 204 lb BMI 41.2 BP 118/74 Intake Visit Reasons: New patient irregular menses/RS x2 Water And Sewer Systems Supervisor Required: No Information Interpreted: clinical only Signal Maintainer: Signal Maintainer Present Allergies pineapple Allergy (Severe, Verified 05/17/24 09:54) Anaphylaxis SEAFOOD Allergy (Severe, Uncoded 05/17/24 09:54) ANAPHYLAXIS Medication List - Last Reconciled 05/17/24 by Fe Dan CNM albuterol sulfate 90 mcg/actuation (ProAir HFA) 2 puffs inhalation Q6H PRN 30 days bisacodyl (Dulcolax (bisacodyl)) 10 mg (2 x 5 mg) PO BEDTIME cholecalciferol (vitamin D3) 50 mcg PO DAILY 90 days docusate sodium (Colace) 200 mg (2 x 100 mg) PO DAILY ferrous sulfate 325 mg PO TID 90 days levothyroxine 112 mcg PO DAILY omeprazole 40 mg PO DAILY pyridoxine (vitamin B6) 100 mg PO DAILY 90 days topiramate 25 mg PO BEDTIME 90 days tramadol 50 mg PO Q8H PRN 30 days Is last menstrual period known: Yes Last menstrual period: 05/12/24 HPI HPI New patient irregular menses/RS x2: Details: 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 She says she has had an abnormal Pap in the past she is here to talk about her irregular periods she cites last few months periods as regular lasting 7 days heavy for the 1st 4 days. Menses started as follows 11 7, 10 4, 9 3, 8 4, 7 4, and the 2 irregular ones were 6 3 and 622 both full menses. She says that she is anemic and for that she is now taking iron but she has recently had blood transfusions and she has had several in her life and iron transfusions with Dr. Cnaales she also has thyroid issues and she sees endocri nology at [facility] but they keep changing her doctors and they are her TSH is they want it but she has difficulty with weight she would like very much to lose weight she has an appointment with them in June.. She says she had her tubes tied after her last and she says Dr. Santos talked to her about a surgery where they burny insides of her uterus but she does not want that. [facility] Medical History Morbid obesity with BMI of 40.0-44.9, adult BMI 39.0-39.9,adult Anxiety and depression Acute gastritis Constipation Renal calculi Acquired hypothyroidism Thyroid ca Renal colic Back pain Asthma Headache Thyroid disease Abdominal pain Mesenteric lymphadenitis Surgical History History of kidney surgery Hx of section History of surgery Family History Father Diabetes Hyperlipidemia Mother Breast cancer Heart attack Brother No problems noted. Brother No problems noted. Brother No problems noted. Sister No problems noted. Daughter No problems noted. Daughter No problems noted. Social History Household Members: Family and Children Housing: Apartment Are you a primary gericare aide teacher to a significant other at home: No Do you presently have visiting nurse or other home services: No Alcohol intake: never Patient Tobacco Use Status: Never used Tobacco e-Cigarette/Vaping Use: Never Used Second Hand Smoke Exposure: No service: No Current occupational status: unemployed Cognitive needs: No Hearing needs: No Vision needs: Yes Female Reproductive History Menstrual Age of Menarche: 11 Duration of menses: 6-7 days Date of last menstrual period: 05/12/24 control method: none Total pregnancies: 2 Full term: 2 Date of last pap smear: 07/07/21 History of abnormal pap smear: Yes (unsure date) Physical Exam Vital Signs: Last Vital Signs BP 118/74 05/17/24 09:53 BMI result Body Mass Index 41.2 Assessment & Plan Assessment & Plan (1) Morbid obesity with BMI of 40.0-44.9, adult: Code(s): E66.01 - Morbid (severe) obesity due to excess calories; Z68.41 - Body mass index [BMI] 40.0-44.9, adult Category: Medical (2) Anemia: Code(s): D64.9 - Anemia, unspecified Category: Medical Qualifiers: Anemia type: iron deficiency Iron deficiency anemia type: other iron deficiency Qualified Code(s): D50.8 - Other iron deficiency anemias (3) Menorrhagia: Code(s): N92.0 - Excessive and frequent menstruation with regular cycle Category: Medical Plan 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 She says she has had an abnormal Pap in the past she is here to talk about her irregular periods she cites last few months periods as regular lasting 7 days heavy for the 1st 4 days. Menses started as follows 11 7, 10 4, 9 3, 8 4, 7 4, and the 2 irregular ones were 6 3 and 622 both full menses. She says that she is anemic and for that she is now taking iron but she has recently had blood transfusions and she has had several in her life and iron transfusions with Dr. Canales she also has thyroid issues and she sees endocrinology at [facility] but they keep changing her doctors and they are her TSH is they want it but she has difficulty with weight she would like very much to lose weight she has an appointment with them in June.. She says she had her tubes tied after her last and she says Dr. Santos talked to her about a surgery where they burny insides of her uterus but she does not want that. Discussed some temporary options and also discussed plan for evaluation recomm end ultrasound to start she does not want exam today. We will plan for exam and evaluation and discussion of the findings of the ultrasound and any possible findings and also discussed possibility of a Mirena IU S to diminish the amount of bleeding she experiences definitely want to inserted with menses but 1st we need to to see if she has fibroids or anything else going on. She is going to for doctors at [facility] to discuss her thyroid and she is going to re discuss whether not there is anything else that can be done to help her with weight loss she has never been this weight before and she is very discouraged by it. She tries to eat well and she is very active all the time but she lives in a 4th floor walk-up. Orders: Orders US pelvic and transvaginal Today E66.01 - Morbid (severe) obesity due to excess calories, N92.0 - Excessive and frequent menstruation with regular cycle, Z68.41 - Body mass index [BMI] 40.0-44.9, adult Coding Level of Care Code New Pt Level 3 (55060) Diagnoses Morbid obesity with BMI of 40.0-44.9, adult E66.01; Z68.41 Other iron deficiency anemia D50.8 Anemia type: iron deficiency Iron deficiency anemia type: other iron deficiency Menorrhagia N92.0 Time Spent (min) 38 Comment 100% [id number] discussing history and making plan.
== END 2024-05-17 10:53 | disposition home or self-care (01) ==
PROVIDERS: PCP Internal Medicine; Visit Provider Advanced Practice Midwife
DX: E66.01 Morbid (severe) obesity due to excess calories (principal); Z68.41 Body mass index [BMI] 40.0-44.9, adult; D50.8 Other iron deficiency anemias; N92.0 Excessive and frequent menstruation with regular cycle
CPT/HCPCS: 99203

== ENCOUNTER → 2024-05-17 09:46 | Outpatient (BNVA) | payer OTHER, SELFPAY | PROVIDERS: PCP Internal Medicine; Visit Provider Advanced Practice Midwife | DX: E66.01 Morbid (severe) obesity due to excess calories (principal); N92.0 Excessive and frequent menstruation with regular cycle; D50.8 Other iron deficiency anemias; Z68.41 Body mass index [BMI] 40.0-44.9, adult | CPT/HCPCS: 99202 ==

== ENCOUNTER 2024-05-24 11:02 | Outpatient (REF) | payer OTHER, SELFPAY | END 2024-05-24 11:03 | disposition home or self-care (01) | LOC: HO.US 11:02 | PROVIDERS: PCP Internal Medicine; Visit Provider Advanced Practice Midwife | DX: N92.0 Excessive and frequent menstruation with regular cycle (principal); E66.01 Morbid (severe) obesity due to excess calories; Z68.41 Body mass index [BMI] 40.0-44.9, adult | CPT/HCPCS: 76830; 76856 ==

== ENCOUNTER 2024-06-21 10:30 | Outpatient (AMB) | payer OTHER, SELFPAY ==
--- NOTE | 2024-06-21 10:34 | A.OFFVIS_ITS ---
Vital Signs 06/21/24 10:40 Height 4 ft 11 in Weight 209 lb 14.081 oz BMI 42.4 BP 119/60 Blood Pressure Location Lt brachial Position Sitting Pulse 69 Intake Visit Reasons: Colonoscopy pre Intake Note: Crissy presents today as an established patient for a colonoscopy prescreen. Patient reports that she had iron transfusions between March to April. Allergies pineapple Allergy (Severe, Verified 06/21/24 10:49) Anaphylaxis SEAFOOD Allergy (Severe, Uncoded 06/21/24 10:49) ANAPHYLAXIS HPI HPI Colonoscopy pre: Details: LAST VISIT: GERD (gastroesophageal reflux disease) Blood in stool Menorrhagia Anemia Plan Patient reports constipation will change senna to Dulcolax continue taking Colace. Will check thyroid level, vitamin-D, CBC B12 and folate. Patient will be referred to OBGYN as she reports very heavy periods. Patient does admit to be feeling tired will send her to recheck CBC. Continue taking omeprazole daily. Avoid dietary triggers and late night snacking. Patient will report back to the office in 2 months. She will call the office if she will have any worsening symptoms. She is agreeable to this plan and verbalizes understanding of instructions. She was given the opportunity to ask questions and all questions answered. ? Thank you for allowing me to participate in her care. Orders Medications New bisacodyl (Dulcolax (bisacodyl)) 10 mg (2 x 5 mg) PO BEDTIME 180 tabs 4RF Changed Changed From docusate sodium (Colace) 100 mg PO DAILY 30 caps 3RF Changed To docusate sodium (Colace) 200 mg (2 x 100 mg) PO DAILY 180 caps 3RF Refilled omeprazole 40 mg PO DAILY 90 caps 2RF Discontinued sennosides (senna) Discontinued Reason: Doctor's Order 8.6 mg PO BEDTIME 90 days PRN 90 tabs 1RF constipation Ventolin HFA 90 mcg/actuation (albuterol sulfate) Discontinued Reason: Duplicate 2 puffs inhalation Q6H 30 days PRN 8 grams 2RF shortness of breath or wheezing NS J45.909 TODAY'S VISIT: Patient is here today for follow-up. Patient was supposed to have colonoscopy and upper endoscopy on the 07 of June and her appointment was changed to today. Patient did not do the prep yesterday only took tablets. Patient reports to be feeling well. Denies any issues with anesthesia in the past. No history of sleep apnea. Patient is no longer getting transfusions. Last transfusion was in April. Patient denies any melena, hematochezia, unintentional weight loss or ribbon like stools. Patient reports acid reflux and currently is taking PPI. Patient reports that she is moving her bowels better now. Patient is not taking any anticoagulation medication. 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 She will speak to her PCP about that. [facility] Medical History Morbid obesity with BMI of 40.0-44.9, adult BMI 39.0-39.9,adult Anxiety and depression Acute gastritis Constipation Renal calculi Acquired hypothyroidism Thyroid ca Renal colic Back pain Asthma Headache Thyroid disease Abdominal pain Mesenteric lymphadenitis Surgical History History of kidney surgery Hx of section History of surgery Family History Father Diabetes Hyperlipidemia Mother Breast cancer Heart attack Brother No problems noted. Brother No problems noted. Brother No problems noted. Sister No problems noted. Daughter No problems noted. Daughter No problems noted. Social History Household Members: Family and Children Housing: Apartment Are you a primary hospice care transitions coordinator to a significant other at home: No Do you presently have visiting nurse or other home services: No Alcohol intake: never Patient Tobacco Use Status: Never used Tobacco e-Cigarette/Vaping Use: Never Used Second Hand Smoke Exposure: No service: No Current occupational status: unemployed Cognitive needs: No Hearing needs: No Vision needs: Yes Female Reproductive History Menstrual Age of Menarche: 11 Review of Systems Const Denies weight gain and Denies weight loss ENT Reports no additional complaints, Denies dysphagia and Denies odynophagia Card Reports no additional complaints Resp Reports no additional complaints GI Denies abdominal pain, Denies belching, Denies melena, Denies bloating, Denies change in bowel habits, Denies dysphagia, Denies excessive flatus, Denies dyspepsia, Denies heartburn, Denies diarrhea, Denies loose stools, Denies nausea, Denies odynophagia and Denies vomiting Musc Reports no additional complaints Neuro Reports no additional complaints Psych Reports no additional complaints Endo Reports no additional complaints Physical Exam Vital Signs: Last Vital Signs Pulse 69 06/21/24 10:40 BP 119/60 06/21/24 10:40 BMI result Body Mass Index 42.4 Const General: healthy appearing and no acute distress Nutritional Appearance: obese Orientation/consciousness: patient oriented x3 Resp Effort & Inspection: normal respiratory effort, able to speak in complete sentences, no tracheal deviation and symmetric chest movement Auscultation: clear to auscultation bilaterally Cardio Rate: regular rate GI Inspection: Yes normal to inspection, No distended and Yes obesity Palpation (GI): Soft to palpation, not firm, nontender and No hepatosplenomegaly present Auscultation: normal bowel sounds General: Yes no CVA tenderness Back/Spine/Pelvis Back: no CVA tenderness Skin General skin exam: elasticity normal, turgor normal and dry skin Neuro General: patient oriented x3 Psych Appearance: grossly normal Mental Status: mental status grossly normal Assessment & Plan Assessment & Plan (1) Blood in stool: Code(s): K92.1 - Melena Category: Medical (2) GERD (gastroesophageal reflux disease): Code(s): K21.9 - Gastro-esophageal reflux disease without esophagitis Category: Medical Qualifiers: Esophagitis presence: esophagitis presence not specified Qualified Code(s): K21.9 - Gastro-esophageal reflux disease without esophagitis (3) Constipation: Code(s): K59.00 - Constipation, unspecified Category: Medical Qualifiers: Constipation type: slow transit constipation Qualified Code(s): K59.01 - Slow transit constipation Plan Patient will continue taking Dulcolax daily. Continue omeprazole. Increase fluid intake and activity to promote better bowel motility. Avoid dietary triggers and late night snacking. Staying upright for minimum 3 hours after meals discussed with patient. Patient will schedule upper endoscopy and colonoscopy. What to expect before during and after procedure discussed with patient. Stressed the importance of clear liquid diet as well as good bowel prep day before procedure. I will see patient after the procedure. Patient will call the office if she will have any GI concerning symptoms. She is agreeable to this plan and verbalizes understanding of instructions. She was given the opportunity to ask questions and all questions answered. Thank you for allowing me to participate in her care Medications: Refilled bisacodyl (Dulcolax (bisacodyl)) take at noon the day before colonoscopy 20 mg (4 x 5 mg) PO ONCE 1 day 4 tabs 0RF polyethylene glycol 3350 (Miralax) the day before your procedure mix entire bottle with 64 ounces of a clear liquid. At 5pm start drinking 1 cup every 15minutes until half is gone. At 10pm finish drinking remaining prep. 238 grams PO ONCE 1 day 238 grams 0RF Coding Level of Care Code Est Pt Level 3 (76199) Diagnoses Blood in stool K92.1 Gastroesophageal reflux disease, unspecified whether esophagitis present K21.9 Esophagitis presence: esophagitis presence not specified Slow transit constipation K59.01 Constipation type: slow transit constipation Time Spent (min) 30 Comment 20 minutes spent with patient and additional 10 minutes spent reviewing her records
[2024-06-21 10:40] VITALS: BP 119/60; PULSE 69; BMI 42.4
== END 2024-06-22 08:10 | disposition home or self-care (01) ==
PROVIDERS: PCP Internal Medicine; Visit Provider Nurse Practitioner Family
DX: K92.1 Melena (principal); K21.9 Gastro-esophageal reflux disease without esophagitis; K59.01 Slow transit constipation
CPT/HCPCS: 99213

== ENCOUNTER → 2024-06-21 10:30 | Outpatient (BNVA) | payer OTHER, SELFPAY | PROVIDERS: PCP Internal Medicine; Visit Provider Nurse Practitioner Family | DX: Z01.818 Encounter for other preprocedural examination (principal); K92.1 Melena; K21.9 Gastro-esophageal reflux disease without esophagitis; K59.01 Slow transit constipation | CPT/HCPCS: 99212 ==

== ENCOUNTER 2024-07-21 07:37 | Day surgery (SDC) | payer OTHER, SELFPAY ==
[2024-06-17 09:16] VITALS: BMI 40.4
--- NOTE | 2024-06-20 10:57 | HO.ANESPROP2 ---
HPI - Anesthesia Eval Consult details Narrative: 34yo F for Upper Endoscopy and Colonoscopy, 07/21/23 BMI 42 PMFSH Active Problems Active Problems: All Active Problems Menorrhagia (Acute) Mild major depression (Acute) Morbid obesity with BMI of 40.0-44.9, adult (Acute) Hypovitaminosis D (Acute) GERD (gastroesophageal reflux disease) (Acute) Thyroid ca (Acute) Blood in stool (Acute) Chronic prescription opiate use (Acute) Kidney stone on left side (Acute) Microcytic hypochromic anemia (Acute) Migraines (Acute) Physical exam (Acute) Hearing loss (Acute) Vitamin D deficiency (Acute) Family history of breast cancer gene mutation in first degree relative (Acute) Breast pain, left (Acute) Anemia (Acute) Obesity (Acute) Anxiety (Acute) Depression (Acute) Renal colic on left side (Acute) Acute gastritis (Acute) Constipation (Acute) Renal calculi (Acute) Acquired hypothyroidism (Acute) Back pain (Acute) Asthma (Acute) Renal colic (Acute) Past Medical History Medical History Morbid obesity with BMI of 40.0-44.9, adult BMI 39.0-39.9,adult Anxiety and depression Acute gastritis Constipation Renal calculi Acquired hypothyroidism Thyroid ca Renal colic Back pain Asthma Headache Thyroid disease Abdominal pain Mesenteric lymphadenitis Family History Family History Father Diabetes Hyperlipidemia Mother Breast cancer Heart attack Brother No problems noted. Brother No problems noted. Brother No problems noted. Sister No problems noted. Daughter No problems noted. Daughter No problems noted. Family history of problems with anesthesia: No Surgical History Surgical History History of kidney surgery Hx of section History of surgery History of Problems with Anesthesia: No Social History Social History Household Members: Family and Children Housing: Apartment Are you a primary group care worker to a significant other at home: No Do you presently have visiting nurse or other home services: No Alcohol intake: never Patient Tobacco Use Status: Never used Tobacco e-Cigarette/Vaping Use: Never Used Second Hand Smoke Exposure: No service: No Current occupational status: unemployed Cognitive needs: No Hearing needs: No Vision needs: Yes Meds Allergies Allergy/AdvReac Type Severity Reaction Status Date / Time pineapple Allergy Severe Anaphylaxis Verified 07/21/24 08:53 SEAFOOD Allergy Severe ANAPHYLAXIS Uncoded 06/21/24 10:49 Home Medications ?Medication ?Instructions ?Recorded ?Confirmed ?Last Taken ?Type levothyroxine 112 mcg tablet 112 mcg PO DAILY 02/09/24 07/21/24 07/21/24 History Exam Height,Weight and Vital Signs: Height 4 ft 11 in Weight 90.718 kg Assessment and Plan Assessment Anesthesia Assessment: Chart Reviewed Final Anesthetic Review Family History of Problems with Anesthesia: No History of Problems with Anesthesia: No
[2024-07-19 12:20] VITALS: BMI 42.2
[2024-07-21 08:47] LABS: UPreg QC Valid YES; Urine Pregnancy NEGATIVE (NEGATIVE)
[2024-07-21 08:54] VITALS: BP 133/87; PULSE 76; RESP 14; TEMP 36.8; O2SAT 97; BMI 42.4
--- NOTE | 2024-07-21 08:58 | HO.ANESPROP2 ---
[facility] Active Problems Active Problems: All Active Problems Menorrhagia (Acute) Mild major depression (Acute) Morbid obesity with BMI of 40.0-44.9, adult (Acute) Hypovitaminosis D (Acute) GERD (gastroesophageal reflux disease) (Acute) Thyroid ca (Acute) Blood in stool (Acute) Chronic prescription opiate use (Acute) Kidney stone on left side (Acute) Microcytic hypochromic anemia (Acute) Migraines (Acute) Physical exam (Acute) Hearing loss (Acute) Vitamin D deficiency (Acute) Family history of breast cancer gene mutation in first degree relative (Acute) Breast pain, left (Acute) Anemia (Acute) Obesity (Acute) Anxiety (Acute) Depression (Acute) Renal colic on left side (Acute) Acute gastritis (Acute) Constipation (Acute) Renal calculi (Acute) Acquired hypothyroidism (Acute) Back pain (Acute) Asthma (Acute) Renal colic (Acute) Past Medical History Medical History Morbid obesity with BMI of 40.0-44.9, adult BMI 39.0-39.9,adult Anxiety and depression Acute gastritis Constipation Renal calculi Acquired hypothyroidism Thyroid ca Renal colic Back pain Asthma Headache Thyroid disease Abdominal pain Mesenteric lymphadenitis Functional capacity: independent ambulation Patient : No Family History Family History Father Diabetes Hyperlipidemia Mother Breast cancer Heart attack Brother No problems noted. Brother No problems noted. Brother No problems noted. Sister No problems noted. Daughter No problems noted. Daughter No problems noted. Family history of problems with anesthesia: No Surgical History Surgical History History of kidney surgery Hx of section History of surgery History of Problems with Anesthesia: No Social History Social History Household Members: Family and Children Housing: Apartment Are you a primary care administrative tech to a significant other at home: No Do you presently have visiting nurse or other home services: No Alcohol intake: never Patient Tobacco Use Status: Never used Tobacco e-Cigarette/Vaping Use: Never Used Second Hand Smoke Exposure: No Use of substances other than those prescribed or required for medical reasons: No Are you DNR?: No Advance Directives: No Advance Directives Information Provided: Yes Recently lost weight without trying: No Nutrition Risks: No Nutritional Risk Patient : No FDLMP: 06/11/24 service: No Current occupational status: unemployed Cognitive needs: No Hearing needs: No Vision needs: Yes Meds Allergies Allergy/AdvReac Type Severity Reaction Status Date / Time pineapple Allergy Severe Anaphylaxis Verified 07/21/24 08:53 SEAFOOD Allergy Severe ANAPHYLAXIS Uncoded 06/21/24 10:49 Active Medications: Current Medications Albuterol Sulfate (Albuterol Sulfate (0.083%) 2.5 Mg/3 Ml Vial.Neb) 2.5 mg INHALE ONCE PRN PRN Reason: Shortness of Breath/Wheezing Lactated Ringer's (Lr) 1,000 mls @ 100 mls/hr IVCONT .Q10H RUBEN Home Medications ?Medication ?Instructions ?Recorded ?Confirmed ?Last Taken ?Type levothyroxine 112 mcg tablet 112 mcg PO DAILY 02/09/24 07/21/24 07/21/24 History Exam Height,Weight and Vital Signs: Height 4 ft 11 in Weight 95.254 kg Last Vital Signs Temp 98.2 F 07/21/24 08:54 Pulse 76 07/21/24 08:54 Resp 14 07/21/24 08:54 BP 133/87 07/21/24 08:54 Pulse Ox 97 07/21/24 08:54 O2 Del Method Room Air 07/21/24 08:54 Pertinent Lab Results Pertinent Lab Results: Laboratory Tests 07/21/24 08:30 Urine Test NEGATIVE Airway Mallampati Class: III TM Dist: >3cm Neck ROM: Full Heart: RRR Lungs: CTA Assessment and Plan Assessment Anesthesia Assessment: Anesthesia Plan Discussed and Chart Reviewed Final Anesthetic Review Family History of Problems with Anesthesia: No History of Problems with Anesthesia: No NPO: Yes ASA Class: III Final Preanesthetic Review: Meds/Allgs Chart Reviewed, Consent Obtained/Reviewed and Anes Risks/Benef Reviewed Patient Risk: Intermediate Procedure Risk: Low Anesthetic Plan Anesthetic Plan: MAC: Disposition: Standard PACU
--- NOTE | 2024-07-21 09:00 | MHC.SHP ---
Pre-Procedural Eval Section A - 24 Hr Update-Section A only Date of Service: 07/21/24 The patient is an INPATIENT: No The patient has been examined within 24 hours of the surgical procedure. The History & Physical has been completed within 30 days and I have reviewed it.: Yes Section B - Complete if H&P > 30 days Chief Complaint: constipation,gerd,diarrhea Allergies: Allergies Allergy/AdvReac Type Severity Reaction Status Date / Time pineapple Allergy Severe Anaphylaxis Verified 07/21/24 08:53 SEAFOOD Allergy Severe ANAPHYLAXIS Uncoded 06/21/24 10:49 Plan Diagnosis/Plan: Unchanged I have reviewed the history and physical and performed a pertinent physical examination on my patient. No changes have occurred unless specified. Time Spent With Patient Time: Total time managing care of this patient today ____ minutes.
[2024-07-21] MEDS: Lactated Ringers 1,000 ML 100 ML IVCONT (09:14)
--- NOTE | 2024-07-21 09:49 | P.OPN-COLO_ITS ---
Colonoscopy Operative Note Operative Note Date of Service: 07/21/24 Narrative: Procedure: Upper endoscopy and colonoscopy Indication: Anemia, rectal bleeding Endoscopist: Meg Santos MD Anesthesia Provider: Araceli Delong MD Anesthesia type: MAC Instrument: [id number] and [id number] EGD Procedure:?? The procedure, indications, preparation and potential complications were reviewed with the patient, who indicated understanding and gave written informed consent to proceed. The endoscope was introduced through the mouth, and advanced to the 2nd part of the duodenum. The mucosa was carefully examined on slow withdrawal of the endoscope. The patient tolerated the procedure well. There were no immediate complications.? EGD Findings:? * Esophagus:? Normal esophageal mucosa was noted. The Z-line was at 36 cm. Cold forceps biopsies were taken from lower esophagus. * Stomach:? A single polyp of size 5 mm was noted in the body along the greater curvature. Cold forceps polypectomy was performed. Remaining gastric mucosa was normal. Retroflexion was performed in the cardia. Random cold forceps biopsies were taken from the stomach. * Duodenum:? Normal duodenal mucosa. Cold forceps biopsies were taken from the duodenal bulb and 2nd portion of the duodenum to rule out celiac sprue. Colonoscopy Procedure:? The patient was then turned for the colonoscopy. A digital rectal exam was performed which was abnormal for hemorrhoids.? A distal attachment cap was affixed to the tip of the scope and the colonoscope was then inserted through the anus and advanced through the colon and advanced to the cecum at 80 cm and terminal ileum.? Appendiceal orifice and ileocecal valve were identified. Mucosa was carefully examined under high definition white light as the instrument was slowly withdrawn in a retrograde panoramic fashion. Retroflexion was performed in ascending colon and rectum. The procedure was not difficult. The quality of the prep was BBPS: 3+3+3 = adequate Withdrawal time 7 minutes Limitations: No limitations Findings: Mucosa: Patchy focal erythema and exudates noted in cecum likely secondary to prep artifact. Cold forceps biopies were taken for evaluation. Remaining colon and terminal ileum mucosa was normal. Protruding lesions: * Medium internal hemorrhoids with stigmata of recent bleeding. Impression: 1. Normal esophagus (biopsy) 2. Normal stomach (biopsy) 3. Gastric polyp (polypectomy) 4. Normal duodenum (biopsy) 5. Abnormal cecal mucosa (biopsy) 6. Internal and external hemorrhoids Recommendations:?? * Follow-up path results * Avoid NSAIDs * H Pylori treatment if biopsies + * Agree with BRICK [facility]TER work up for menorrhagia * Asymptomatic CRC screening to resume at 47 y.o
[2024-07-21 09:53] VITALS: BP 121/80; PULSE 76; RESP 16; TEMP 36.6; O2SAT 98
[2024-07-21 10:08] VITALS: BP 135/76; PULSE 61; RESP 16; O2SAT 98
--- NOTE | 2024-07-21 10:14 | HO.POSTANES ---
Post Anesthesia Evaluation Post Anesthesia Evaluation Date of Service: 07/21/24 Vital Signs: Vital Signs Temp Pulse Resp BP Pulse Ox O2 Del Method 07/21/24 09:53 98 F 76 16 121/80 98 Room Air 07/21/24 08:54 98.2 F 76 14 133/87 97 Room Air Anesthesia: Monitored Mental Status: Awake Pain Control: Satisfactory Nausea/Vomiting: None Hydration: Adequate Anesthesia-Related Issues: No Anes. Related Issues
[2024-07-21 10:23] VITALS: BP 152/94; PULSE 60; RESP 16; TEMP 36.7; O2SAT 98
== END 2024-07-21 11:01 | disposition home or self-care (01) ==
PROVIDERS: Nurse Practitioner; PCP Internal Medicine; Visit Provider Internal Medicine
PROC: (CPT 45380; principal; 2024-07-21 10:00)
DX: K92.1 Melena (principal); D64.9 Anemia, unspecified; K63.89 Other specified diseases of intestine; K64.8 Other hemorrhoids; K64.4 Residual hemorrhoidal skin tags; K59.01 Slow transit constipation; R19.7 Diarrhea, unspecified; K21.9 Gastro-esophageal reflux disease without esophagitis; K31.7 Polyp of stomach and duodenum; I88.0 Nonspecific mesenteric lymphadenitis; E03.9 Hypothyroidism, unspecified; J45.909 Unspecified asthma, uncomplicated; Z79.899 Other long term (current) drug therapy; Z85.850 Personal history of malignant neoplasm of thyroid; Z87.442 Personal history of urinary calculi; Z98.890 Other specified postprocedural states; Z56.0 Unemployment, unspecified
CPT/HCPCS: 45380; 43239; 81025; 88305; 88313; 88341; 88342; J2003; J2704

== ENCOUNTER → 2024-07-21 07:37 | Outpatient (BNV) | payer OTHER, SELFPAY | PROVIDERS: PCP Internal Medicine; Visit Provider Internal Medicine | DX: D64.9 Anemia, unspecified (principal); K62.5 Hemorrhage of anus and rectum; K31.7 Polyp of stomach and duodenum; K63.89 Other specified diseases of intestine; K64.8 Other hemorrhoids | CPT/HCPCS: 43239; 45380 ==

== ENCOUNTER 2024-07-28 14:41 | Outpatient (AMB) | payer OTHER, SELFPAY ==
--- NOTE | 2024-07-28 14:41 | MHC.OFFVIS ---
Intake Visit Reasons: US f/u (do not reschedule) Allergies pineapple Allergy (Severe, Verified 07/28/24 14:41) Anaphylaxis SEAFOOD Allergy (Severe, Uncoded 07/28/24 14:41) ANAPHYLAXIS Medication List - Last Reconciled 07/28/24 by Fe Dan CNM albuterol sulfate 90 mcg/actuation (ProAir HFA) 2 puffs inhalation Q6H PRN 30 days bisacodyl (Dulcolax (bisacodyl)) 10 mg (2 x 5 mg) PO BEDTIME cholecalciferol (vitamin D3) 50 mcg PO DAILY 90 days docusate sodium (Colace) 200 mg (2 x 100 mg) PO DAILY ferrous sulfate 325 mg PO TID 90 days levothyroxine 112 mcg PO DAILY omeprazole 40 mg PO DAILY pyridoxine (vitamin B6) 100 mg PO DAILY 90 days topiramate 25 mg PO BEDTIME 90 days tramadol 50 mg PO Q8H PRN 30 days Is last menstrual period known: Yes Last menstrual period: 07/24/24 HPI HPI US f/u (do not reschedule): Details: This is a tele visit to discuss patient's ultrasound she had the ultrasound to see if this reason that could be established for her heavy menses and therefore her anemia. Her periods are more less regular but they last at least 7 days and they are heavy for least 4 sometimes more she is on day 4 of her period now and it is still rather heavy. She became so anemic that she required transfusions in February and she has follow-up scheduled with Dr. Canales in August and also found lab work that she needs to do befor seeing her. She also had gastrointestinal procedures done to evaluate bleeding with bowel movements that she was having she says that they found a polyp and did some sort of testing but she has follow-up for then coming up soon to but she does not know exactly when yet. She has a history of an emergency for her 1st but she does not remember exactly why and then a repeat for her 2nd. That was done with Dr. Milan. [facility] Medical History Morbid obesity with BMI of 40.0-44.9, adult BMI 39.0-39.9,adult Anxiety and depression Acute gastritis Constipation Renal calculi Acquired hypothyroidism Thyroid ca Renal colic Back pain Asthma Headache Thyroid disease Abdominal pain Mesenteric lymphadenitis Surgical History History of kidney surgery Hx of section History of surgery Family History Father Diabetes Hyperlipidemia Mother Breast cancer Heart attack Brother No problems noted. Brother No problems noted. Brother No problems noted. Sister No problems noted. Daughter No problems noted. Daughter No problems noted. Social History Household Members: Family and Children Housing: Apartment Are you a primary managed care specialist to a significant other at home: No Do you presently have visiting nurse or other home services: No Alcohol intake: never Patient Tobacco Use Status: Never used Tobacco e-Cigarette/Vaping Use: Never Used Second Hand Smoke Exposure: No service: No Current occupational status: unemployed Cognitive needs: No Hearing needs: No Vision needs: Yes Female Reproductive History Menstrual Age of Menarche: 11 Duration of menses: 6-7 days Date of last menstrual period: 07/24/24 control method: none Total pregnancies: 2 Full term: 2 Date of last pap smear: 07/07/21 (negative,per patient) History of abnormal pap smear: Yes Telehealth Telehealth Telehealth Platform: Telephone Location of provider rendering services: practice address Location of patient: address on file Patient Identification confirmed using: Name, : Yes Telehealth method: voice only Patient verbally consented to treatment: Yes Patient verbally consented to billing insurance company: Yes Patient informed of any privacy concerns related to visit: Yes Minutes spent on Phone/Video with Pt.: 20 (3 cr/20 speaking w pt/12 charting=35.) Results Reviewed Results Reviewed: Patient: Crissy Martin MR#: [id number] : 1990 Acct:[id number] Age/Sex: 34 / F ADM Date: 05/24/24 Loc: HO.US Attending Dr: eF Dan CNM Ordering Physician: Fe Dan CNM Date of Service: 05/24/24 Procedure(s): US pelvic and transvaginal Accession Number(s): [id number] cc: Fe Dan CNM; Sravani Quick MD~ EXAMINATION: US PELVIS CLINICAL INFORMATION: Excessive frequent menstruation. COMPARISON: None available. TECHNIQUE: Ultrasound of the pelvis is performed using both transabdominal and transvaginal transducers along with Doppler. Transvaginal imaging is performed due to inadequate visualization transabdominally. FINDINGS: Anteverted uterus measures 9.5 x 3.9 x 4.5 cm. Uterine configuration raises the possibility of a congenital anomaly such as an arcuate uterus. The RIGHT endometrial horn measures 5 mm and LEFT measures 3 mm. RIGHT ovary measures 3.6 x 1.8 x 1.5 cm, volume 5.1 mL. LEFT ovary measures 2.6 x 1.5 x 1.5 cm, volume 2.1 mL. Nabothian cysts in the cervix. Limited visualization due to bowel gas. US/US pelvic and transvaginal IMPRESSION: Uterine configuration raises the possibility of a congenital anomaly such as an arcuate uterus. The RIGHT endometrial horn measures 5 mm and LEFT measures 3 mm. 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 patient had 2 prior C-sections and history of tubal ligation as well. We will review with patient at her follow-up visit 07/28/2024. Code(s): N92.0 - Excessive and frequent menstruation with regular cycle Category: Medical (2) Anemia: Code(s): D64.9 - Anemia, unspecified Category: Medical Qualifiers: Anemia type: iron deficiency Iron deficiency anemia type: other iron deficiency Qualified Code(s): D50.8 - Other iron deficiency anemias Plan This is a tele visit to discuss patient's ultrasound she had the ultrasound to see if this reason that could be established for her heavy menses and therefore her anemia. Her periods are more less regular but they last at least 7 days and they are heavy for least 4 sometimes more she is on day 4 of her period now and it is still rather heavy. She became so anemic that she required transfusions in February and she has follow-up scheduled with Dr. Canales in August and also found lab work that she needs to do befor seeing her. She also had gastrointestinal procedures done to evaluate bleeding with bowel movements that she was having she says that they found a polyp and did some sort of testing but she has follow-up for then coming up soon to but she does not know exactly when yet. She has a history of an emergency for her 1st but she does not remember exactly why and then a repeat for her 2nd. That was done with Dr. Milan. I reviewed the ultrasound with her and be interesting notation that her uterus may be arcuate. Discussed that this is probably less important to know now as she is done with childbearing and in fact has a tubal ligation. Discussed the usual implications for this as relates to position etc.. Discussed her history of the heavy periods and workup thus far. She is going to be following up with gastroenterology and also with Hematology coming soon I reminded her that she needs to get her lab done before the visit with Hematology which is just next week or next month.. Discussed that I did notice high blood pressures last week but that is when she was undergoing the procedures but nevertheless she would not be a good pill candidate at this juncture, discussed the common treatments of either Mirena IU S persist Depo-Provera versus other methodology to minimize menstrual bleeding. Discussed some of the contraindications to some of the methods mentioned discussed that probably she would most likely benefit from a Mirena IU S and it would be best inserted at the beginning of her period For many reasons which I shared. Discussed the side effects discussed that some of the other methods contribute more to weight gain in that would not be beneficial to her.. Discussed that she may want to discuss this option with her primary doctor and patternmaker plaster as well but I would recommend for Mirena to insert with the beginning of her next period during 1 of the 1st 4 days when it is most heavy. She agrees with the plan but will also consider it over the next as she is currently on day 4 of her menses, Plan for Mirena insertion within the 1st 4 days of her next period Coding Level of Care Code Tele Est Pt Level 3 (11115) Diagnoses Menorrhagia N92.0 Other iron deficiency anemia D50.8 Anemia type: iron deficiency Iron deficiency anemia type: other iron deficiency
== END 2024-07-28 16:29 | disposition home or self-care (01) ==
LOC: HO.HWSM 14:41
PROVIDERS: PCP Internal Medicine; Visit Provider Advanced Practice Midwife
DX: N92.0 Excessive and frequent menstruation with regular cycle (principal); D50.8 Other iron deficiency anemias
CPT/HCPCS: 99213

== ENCOUNTER 2024-09-23 08:59 | Outpatient (AMB) | payer OTHER, SELFPAY ==
[2024-09-23 09:05] VITALS: BP 116/70; BMI 43.4
--- NOTE | 2024-09-23 09:05 | A.OFFVIS_ITS ---
Vital Signs 09/23/24 09:05 Height 4 ft 11 in Weight 215 lb BMI 43.4 BP 116/70 Intake Visit Reasons: ANALYST GEOCHEMICAL PROSPECTING annual exam Multiskill Operator Required: No Multiskill Operator Services: Multiskill Operator Present Information Interpreted: clinical only Workers Compensation Adjuster: Workers Compensation Adjuster Present Allergies pineapple Allergy (Severe, Verified 09/23/24 09:05) Anaphylaxis SEAFOOD Allergy (Severe, Uncoded 09/23/24 09:05) ANAPHYLAXIS Medication List - Last Reconciled 09/23/24 by Fe Dan CNM albuterol sulfate 90 mcg/actuation (ProAir HFA) 2 puffs inhalation Q6H PRN 30 days bisacodyl (Dulcolax (bisacodyl)) 10 mg (2 x 5 mg) PO BEDTIME cholecalciferol (vitamin D3) 50 mcg PO DAILY 90 days docusate sodium (Colace) 200 mg (2 x 100 mg) PO DAILY ferrous sulfate 325 mg PO TID 90 days levothyroxine 112 mcg PO DAILY 90 days omeprazole 40 mg PO DAILY pyridoxine (vitamin B6) 100 mg PO DAILY 90 days topiramate 25 mg PO BEDTIME 90 days tramadol 50 mg PO Q8H PRN 30 days Is last menstrual period known: Yes Last menstrual period: 09/07/24 [facility] HPI ANALYST GEOCHEMICAL PROSPECTING annual exam: Details: Patient is here for a chiropractic doctor annual exam. She has been seen recently for discussions around her menorrhagia and she had a pelvic ultrasound that was reviewed at the last visit and the plan had been for her to call when she got a period but at that time the office had called her to reschedule her appointment so when she got her period on September 07 (which lasted for 10 days and was very heavy) she figured they had already told her that the office would not be available at that time -because they just rescheduled her-- so she did not call to have the Mirena put in. She is very frustrated about her weight she has never been this heavy she is thinks that it is because they lowered her levothyroxine to 112 from 07/30. She sees an composition teacher at [facility]. She tried the bariatric surgery program but she could not handle the liquid diet or the things they wanted her to to lose weight 1st She would be interested and she has asked and wants to ask about weight loss medications but says the thyroid DrBarbra At [facility] told her the she would not be able to use it because of her particular thyroid issues she had her thyroid removed. She tends not to eat breakfast for lunch yesterday she had a subway sandwich she eats ?plain? so it was just a plain sandwich with him and she is I asked her if she would consider not eating the bread and she said no. I discussed vegetables with her and she said she does not like vegetables she tried eating them raw also and it was a no . [facility] Medical History Morbid obesity with BMI of 40.0-44.9, adult BMI 39.0-39.9,adult Anxiety and depression Acute gastritis Constipation Renal calculi Acquired hypothyroidism Thyroid ca Renal colic Back pain Asthma Headache Thyroid disease Abdominal pain Mesenteric lymphadenitis Surgical History History of kidney surgery Hx of section History of surgery Family History Father Diabetes Hyperlipidemia Mother Breast cancer Heart attack Brother No problems noted. Brother No problems noted. Brother No problems noted. Sister No problems noted. Daughter No problems noted. Daughter No problems noted. Social History Household Members: Family and Children Housing: Apartment Are you a primary child care teacher to a significant other at home: No Do you presently have visiting nurse or other home services: No Alcohol intake: never Patient Tobacco Use Status: Never used Tobacco e-Cigarette/Vaping Use: Never Used Second Hand Smoke Exposure: No service: No Current occupational status: unemployed Cognitive needs: No Hearing needs: No Vision needs: Yes Female Reproductive History Menstrual Age of Menarche: 11 Date of last menstrual period: 09/07/24 control method: none Total pregnancies: 2 Full term: 2 Date of last pap smear: 07/07/21 (nehative(per pt.)) History of abnormal pap smear: Yes (hx abn pap) Physical Exam Vital Signs: Last Vital Signs BP 116/70 09/23/24 09:05 BMI result Body Mass Index 43.4 Const Other: Obesity noted vitiligo noted hair loss at temples and hair thinning increased facial hair. General: healthy appearing, comfortable, no acute distress, well developed and alert Nutritional Appearance: average body habitus Orientation/consciousness: patient oriented x3 Limitations: no limitations HEENT Head: Yes normocephalic Neck Neck: Yes normal visual inspection Chest Chest palpation & inspection: normal inspection of the chest Breast/axilla inspection: normal inspection of the breasts and normal inspection of the axillae Breast/axilla palpation: normal palpation of the breasts and normal palpation of the axillae Resp Effort & Inspection: normal respiratory effort GI Inspection: Yes normal to inspection, No Abdominal wall edema and No distended Palpation (GI): Soft to palpation and nontender Other: External exam within normal limits vagina pink and moist cervix nulliparous pink tightly closed normal appearing clear mucus with scant amount of brown discharge. Cervix long close thick mobile nontender uterus difficult to feel secondary to adipose but nontender nonenlarged unable to assess muscle tone for Kegel as patient not able to reproduce. General: Yes bladder normal to palpation External Female Exam: normal external appearance and normal appearance of the urethra Speculum Exam - Vagina: normal appearance of the vagina, normal palpation and normal vaginal discharge Speculum Exam - Cervix: normal appearance of the cervix, normal palpation and nontender Bimanual exam- vagina & uterus: normal bimanual exam, normal palpation, uterine size normal, bladder normal to palpation, consistency normal, normal palpation, uterine mobility normal, uterine shape normal, No Cervical tenderness present, non-tender and no cervical motion tenderness Bimanual Exam- Adnexa, other: normal adnexae, no masses, normal and No adnexal tenderness Neuro General: patient oriented x3 Assessment & Plan Assessment & Plan (1) Menorrhagia: Comment: 05/24/24 ultrasound has just -(07/22/24), been reviewed by radiologist possible arcuate uterus noted. patient had 2 prior C-sections and history of tubal ligation as well. We will review with patient at her follow-up visit 07/28/2024.; 09/23/2024 again discussed plan for Mirena with menses scheduling challenges prevented taking advantage of previous menses. Code(s): N92.0 - Excessive and frequent menstruation with regular cycle Category: Medical (2) Acquired hypothyroidism: Code(s): E03.9 - Hypothyroidism, unspecified Category: Medical (3) Morbid obesity with BMI of 40.0-44.9, adult: Comment: Discussed at length visit again... Code(s): E66.01 - Morbid (severe) obesity due to excess calories; Z68.41 - Body mass index [BMI] 40.0-44.9, adult Category: Medical (4) Constipation: Code(s): K59.00 - Constipation, unspecified Category: Medical Qualifiers: Constipation type: slow transit constipation Qualified Code(s): K59.01 - Slow transit constipation (5) Vitiligo: Code(s): L80 - Vitiligo Category: Medical (6) Alopecia: Code(s): L65.9 - Nonscarring hair loss, unspecified Category: Medical (7) Thyroid ca: Code(s): C73 - Malignant neoplasm of thyroid gland Category: Medical (8) Microcytic hypochromic anemia: Code(s): D50.9 - Iron deficiency anemia, unspecified Category: Medical (9) Cervical cancer screening: Comment: pap done 09/23/24.... Code(s): Z12.4 - Encounter for screening for malignant neoplasm of cervix Category: Medical Plan Discussed previously made plan after review of her ultrasound and all of her many issues but concentrating for the moment on the irregular menses and menorrhagia leading to need for transfusions, had made plan for insertion of Josue rema with following menses given appointment changes she was not able to have that done as she and I desired. Discussed that in her situation it really would be much more helpful to insert it with her. Or at least heavy bleeding (nulliparous 2 previous C-sections, patient finds exams uncomfortable adiposity contributing to slightly challenging exam) in addition placing the Mirena with her menses will help to ameliorate her irregular bleeding pattern rather than inserting it randomly when she is not bleeding at all. Discussed in addition, the very real challenges of her increasing obesity and the limitations that she has been told are there for her because of her thyroid issues. I urged her to continue to have open discussions with her doctors to see if any other suggestions are available and mostly I encouraged her to consider opening her mind to changing some thing in her diet and activity level because if she does not it would be very hard to lose weight even with what ever other assistance medical or surgical is offered to her. In particular I was discussing dietary issues and considering ways to cook vegetables easily that in part some flavor but without a lot of extra calories a most of my suggestions were not met with favor. We will see her with her menses for Mirena insertion I asked her to call when she starts getting a heavy period. Patient to be seen with start of heavy menses for insertion of IUD/Mirena Coding Level of Care Code Est Pt Prev Care [id number]) Diagnoses Menorrhagia N92.0 Acquired hypothyroidism E03.9 Morbid obesity with BMI of 40.0-44.9, adult E66.01; Z68.41 Slow transit constipation K59.01 Constipation type: slow transit constipation Vitiligo L80 Alopecia L65.9 Thyroid ca C73 Microcytic hypochromic anemia D50.9 Cervical cancer screening Z12.4
== END 2024-09-23 10:45 | disposition home or self-care (01) ==
LOC: HO.HWS 08:59
PROVIDERS: PCP Internal Medicine; Visit Provider Advanced Practice Midwife
DX: Z01.419 Encounter for gynecological examination (general) (routine) without abnormal findings (principal)
CPT/HCPCS: 99395; 99459

== ENCOUNTER 2024-09-23 08:59 | Outpatient (REF) | payer OTHER, SELFPAY ==
[2024-09-29 15:01] LABS: HPV Genotype 16 Negative (Negative); HPV Genotype 18 Negative (Negative); HPV High Risk Negative (Negative)
== END 2024-09-23 09:00 | disposition home or self-care (01) ==
LOC: HO.LNP 08:59
PROVIDERS: PCP Internal Medicine; Visit Provider Advanced Practice Midwife
DX: Z01.419 Encounter for gynecological examination (general) (routine) without abnormal findings (principal)
CPT/HCPCS: 87626; 88175; 99395; 99459

== ENCOUNTER 2024-09-23 10:36 | Outpatient (REF) | payer OTHER, SELFPAY ==
[2024-09-25 12:19] LABS: Bacterial Vaginosis PCR NEGATIVE (Negative); Candida Group PCR NOT DETECTED (Not Detect); Candida glab krusei PCR NOT DETECTED (Not Detect); Trichomonas vaginalis PCR NOT DETECTED (Not Detect)
[2024-09-25 12:52] LABS: CT PCR NOT DETECTED (Not Detect.); NG PCR NOT DETECTED (Not Detect.)
== END 2024-09-23 10:37 | disposition home or self-care (01) ==
LOC: HO.LAB 10:36
PROVIDERS: Visit Provider Advanced Practice Midwife
DX: N89.8 Other specified noninflammatory disorders of vagina (principal); Z20.2 Contact with and (suspected) exposure to infections with a predominantly sexual mode of transmission
CPT/HCPCS: 81515; 87491; 87591

== ENCOUNTER 2024-10-06 10:48 | Outpatient (REF) | payer OTHER, SELFPAY ==
--- NOTE | ~2024-10-06 | US_ITS ---
CLINICAL HISTORY: N20.0 - Calculus of kidney US Renal Comparison: 02/08/2024 Findings: Right kidney normal size and echotexture, 12.3 cm length. Left kidney normal size and echotexture, 10.8 cm length. No hydronephrosis of either kidney. Normal color Doppler IMPRESSION: 1. Normal kidneys. This document has been electronically signed by: Moshe Thompson MD on 10/07/2024 08:49:44
--- NOTE | ~2024-10-06 | XR_ITS ---
EXAMINATION: XR ABDOMEN 1 VIEW (KUB) HISTORY: N20.0 - Calculus of kidney COMPARISON: Comparison is made with the prior examination dated 01/20/2024. FINDINGS: Two supine views of the abdomen are submitted. The bowel gas pattern is unremarkable, without evidence of mechanical obstruction. There are possible faint tiny calcifications overlying the upper and lower poles of the left kidney. There are no abnormal soft tissue masses. The bones are intact. XR/XR KUB IMPRESSION: Possible tiny calcifications overlying the upper and lower poles of the left kidney. Electronically signed by: Truman Sy MD 10/07/2024 09:57 AM EDT
--- OUTSIDE RECORDS SUMMARY | 2024-10-06 12:02 | XMS_ITS | Clinical Summary ---
Author Organization [facility] ity Address [address] [place] [address] Care Team Providers Care Instructor Decorating Name Role Phone Unavailable Primary Care Provider Unavailabl e Social History Tobacco Use Types Packs/Day Years Used Date Smoking Tobacco: Never Assessed Comments Unknown Sex and Gender Information Value Date Recorded Sex Assigned at Not on file Legal Sex Female 3:31 PM EST Gender Identity Not on file Sexual Orientation Not on file Plan of Treatment Health Maintenance Due Date Last Done Comments DTaP,Tdap,and Td Vaccines (1 - Tdap) 2011 Hepatitis B Vaccines (1 of 3 - 19+ 3-dose series) 2011 Cervical Cancer Screening: P ap Smear 2013 COVID-19 Vaccine ( - 2023-2 5 season) 2024 Influenza Vaccine (#1) 2024 HIB Vaccines Aged Out No longer eligi ble based on patient's age to complete this topic HPV Vaccines Aged Out No longer eligi ble based on patient's age to complete this topic Hepatitis A Vaccines Aged Out No long er eligible based on patient's age to complete this topic IPV Vaccines Aged Out No longer eligi ble based on patient's age to complete this topic MMR Vaccines Aged Out No longer eligi ble based on patient's age to complete this topic Meningococcal ACWY Vaccine Aged Out N o longer eligible based on patient's age to complete this topic Meningococcal B Vacine Aged Out No lo nger eligible based on patient's age to complete this topic Pneumococcal Vaccine: Pediat rics (0 to 5 Years) and At-Risk Patients (6 to 64 Years) Aged Out No longer eligible b ased on patient's age to complete this topic RSV Immunization Patients Un gumaro 20 months Aged Out No longer eligible b ased on patient's age to complete this topic Varicella Vaccines Aged Out No longer eligible based on patient's age to complete this topic
== END 2024-10-06 10:49 | disposition home or self-care (01) ==
LOC: HO.HMGCX 10:48
PROVIDERS: PCP Internal Medicine; Visit Provider Urology
DX: N20.0 Calculus of kidney (principal)
CPT/HCPCS: 74018; 76775

== ENCOUNTER → 2024-10-06 10:51 | Outpatient (BNV) | payer OTHER, SELFPAY | PROVIDERS: PCP Internal Medicine; Visit Provider Specialist | DX: N20.0 Calculus of kidney (principal) | CPT/HCPCS: 74018; 76775 ==

== ENCOUNTER → 2024-10-14 14:59 | Outpatient (BNVA) | payer OTHER, SELFPAY | PROVIDERS: PCP Internal Medicine; Visit Provider Urology ==

== ENCOUNTER 2024-10-17 08:18 | Outpatient (AMB) | payer MEDICAID, SELFPAY ==
--- NOTE | 2024-10-17 08:17 | A.OFFVIS_ITS ---
Intake Visit Reasons: KUB/US follow up Intake Note: Patient is present for a follow up/KUB/US Urology Medication:vitamin b6, naproxen Antibiotic Allergy:none Blood Thinner:none Allergies pineapple Allergy (Severe, Verified 10/17/24 08:19) Anaphylaxis SEAFOOD Allergy (Severe, Uncoded 09/23/24 09:05) ANAPHYLAXIS Medication List - Last Reconciled 10/17/24 by Guille Aldana MD albuterol sulfate 90 mcg/actuation (ProAir HFA) 2 puffs inhalation Q6H PRN 30 days bisacodyl (Dulcolax (bisacodyl)) 10 mg (2 x 5 mg) PO BEDTIME cholecalciferol (vitamin D3) 50 mcg PO DAILY 90 days docusate sodium (Colace) 200 mg (2 x 100 mg) PO DAILY ferrous sulfate 325 mg PO TID 90 days levothyroxine 112 mcg PO DAILY 90 days omeprazole 40 mg PO DAILY pyridoxine (vitamin B6) 100 mg PO DAILY 90 days topiramate 25 mg PO BEDTIME 90 days tramadol 50 mg PO Q8H PRN 30 days HPI Comments Details: 10/17/24--Crissy is a 34-year-old female who has been followed for kidney stones. She underwent an ultrasound of the kidneys on the 4th of this month, yielding normal findings and no evidence of kidney stones. As part of her treatment for migraines, her medication Topromax was noted as a contributory factor potentially affecting kidney stone development. The patient is engaging in hydration therapy to prevent future stone formation. Discussions included the significance of sufficient fluid intake and the advantageous effects of lemon in reducing stone risk. Urinary Symptoms Review - Denies irritative voiding symptoms. - Absence of kidney stones in recent diagnostics. - Utilization of hydration as a preventative measure. Results - Ultrasound of the kidneys: Normal, no kidney stones detected. - X-ray imaging: Normal findings, no abnormalities. 03/02/24--status post ESWL left kidney stone, telehealth follow-up. And she had a follow-up renal ultrasound, she states that she did not pass any stone fragments, I have discussed that kidney stone did not fragment successfully with the ESWL. Discussed repeating the procedure versus continued monitoring as she currently is asymptomatic. Plan will continue to monitor conservatively. Follow-up KUB in 6 months. 11/20/2023--Crissy is a 33-year-old female with history of kidney stones. She was seen last on 07/10/2022. She states since that time she has not seen blood in the urine. She gets occasional discomfort in the left kidney area but also feels discomfort on the right side. She has a chronic back issue and is prescribed tramadol p.r.n.. History of thyroid cancer and is on Topamax for migraines. No recent imaging. Had CT and renal ultrasound June 2022 noting left nephrolithiasis. The patient is interested in proceeding with treatment for kidney stone. Will check a KUB x-ray. Discussed left ESWL, reviewed risks and benefits versus discussed ureteroscopy as an alternative therapy option. Plan left ESWL. 07/10/22--32-year-old female history followed for kidney stones PMH -- asthma, acquired hypothyroidism secondary to thyroidectomy from history of thyroid CA, anxiety,migraine anemia--followed Hematology has undergone 1 unit RBCs on 04/08 and is currently receiving IV Venofer. She was in the ED --seen on 06/11 for 3 days of right flank pain history of kidney stone, vomiting and epigastric pain. CT unremarkable --5 mm and 4 mm nonobstructing stones in the left kidney with no hydronephrosis. Patient's exam was consistent with acute gastritis and patient was started on Prilosec. She had a renal sono 06/26/22 -- 6 mm stone left kidney reported. Discussed treatment options to include Left ESWL. Discussed risks to include but not limited to, blood in the urine, bruising to the skin, kidney hematoma, possible need for another procedure if a stone fragment obstructs the ureter while passing, possible need to repeat procedure if stone is not completely fragmented. [facility] Medical History Morbid obesity with BMI of 40.0-44.9, adult BMI 39.0-39.9,adult Anxiety and depression Acute gastritis Constipation Renal calculi Acquired hypothyroidism Thyroid ca Renal colic Back pain Asthma Headache Thyroid disease Abdominal pain Mesenteric lymphadenitis Surgical History History of kidney surgery Hx of section History of surgery Family History Father Diabetes Hyperlipidemia Mother Breast cancer Heart attack Brother No problems noted. Brother No problems noted. Brother No problems noted. Sister No problems noted. Daughter No problems noted. Daughter No problems noted. Social History Household Members: Family and Children Housing: Apartment Are you a primary health care social worker to a significant other at home: No Do you presently have visiting nurse or other home services: No Alcohol intake: never Patient Tobacco Use Status: Never used Tobacco e-Cigarette/Vaping Use: Never Used Second Hand Smoke Exposure: No service: No Current occupational status: unemployed Cognitive needs: No Hearing needs: No Vision needs: Yes Female Reproductive History Menstrual Age of Menarche: 11 Review of Systems Const All systems reviewed & are unremarkable except as noted in HPI and below Reports no additional complaints Eyes Reports no additional complaints ENT Reports no additional complaints Card Reports no additional complaints Resp Reports no additional complaints GI Reports no additional complaints Reports as per HPI Musc Reports no additional complaints Skin/Breast Reports system reviewed and no additional complaints, except as documented Neuro Reports no additional complaints Psych Reports no additional complaints Endo Reports no additional complaints Dmitry/Lymph Reports no additional complaints Aller/Immun Reports no additional complaints Telehealth Telehealth Telehealth Platform: Dopios Location of provider rendering services: practice address Location of patient: address on file Patient Identification confirmed using: Name, : Yes Telehealth method: video Patient verbally consented to treatment: Yes Patient verbally consented to billing insurance company: Yes Patient informed of any privacy concerns related to visit: Yes Results Reviewed Results Reviewed: Date of Service: 10/06/24 US Renal Comparison: 02/08/2024 Findings: Right kidney normal size and echotexture, 12.3 cm length. Left kidney normal size and echotexture, 10.8 cm length. No hydronephrosis of either kidney. Normal color Doppler IMPRESSION: 1. Normal kidneys. Date of Service: 06/11/22 EXAMINATION: CT abdomen pelvis wo IV con CLINICAL INFORMATION: Reason for Exam r flank pain COMPARISON: Prior CT 2018 FINDINGS: LOWER THORAX: Included lung bases are clear. HEPATOBILIARY: No focal hepatic lesions. No biliary ductal dilatation. GALLBLADDER: Gallbladder unremarkable. SPLEEN: Spleen is normal in size. PANCREAS: No focal mass or ductal dilatation. STOMACH AND GASTROINTESTINAL TRACT: Stomach is grossly unremarkable. There is no bowel distention or thickening. No CT evidence of appendicitis. ADRENALS: No adrenal nodules. KIDNEYS/URETERS: There is 5 mm nonobstructing stone lower calyx left kidney, 4 mm nonobstructing stone middle calyx left kidney. Kidneys otherwise normal in size, texture and attenuation, no renal mass, cyst or obstruction. Perinephric fat are clear. URINARY BLADDER: Partially decompressed. PELVIC VISCERA: Unremarkable PERITONEUM: No free air or fluid. LYMPH NODES: No lymphadenopathy. VASCULAR:Abdominal aorta normal in size, no aneurysm found. BONES, ABDOMINAL WALL AND SOFT TISSUES: Age-appropriate changes of the spine and skeletal system, no destructive osteolytic or osteosclerotic bone lesion found IMPRESSION: ? *? No CT evidence of acute intra-abdominal process to explain patient's pain symptoms.? *? There are nonobstructing stones in the left kidney, 5 mm and 4 mm. No hydronephrosis. Date of Service: 06/26/22 EXAMINATION: US RETROPERITONEAL LIMITED (RENAL ONLY) CLINICAL INFORMATION: Calculus of kidney. COMPARISON: CT abdomen and pelvis 06/11/2022.? TECHNIQUE: Real-time imaging of the kidneys.? FINDINGS: RIGHT KIDNEY: 11.8 x 5.2 x 5.2 cm (SAG x AP x TRV). The kidney is normal in size, contour, and echogenicity. Renal cortical thickness is normal. No calculi or focal parenchymal lesions. No hydronephrosis. LEFT KIDNEY: 11.0 x 5.0 x 5.7 cm (SAG x AP x TRV). The kidney is normal in size, contour, and echogenicity. Renal cortical thickness is normal. No focal parenchymal lesions or hydronephrosis. 6 mm nonobstructing left midpole renal stone, previously measured 5 mm, similar when accounting for differences in technique. A second previously seen left lower pole renal stone was not identified sonographically. IMPRESSION:? 6 mm nonobstructing left midpole renal stone, similar when accounting for differences in technique. A second previously seen left lower pole renal stone was not identified sonographically. ? Assessment & Plan Assessment & Plan (1) Kidney stones, calcium oxalate: Code(s): N20.0 - Calculus of kidney Category: Medical (2) History of kidney stones: Code(s): Z87.442 - Personal history of urinary calculi Category: Medical Plan Plan The patient has demonstrated normal kidney function with no signs of new nephrolithiasis from recent diagnostics. We recommend continuous hydration and lemon addition to water, given its stone prevention qualities. Her risk of developing stones due to migraine medication was acknowledged, and a refill for Vitamin B6 was ordered. We will conduct an annual ultrasound and plan for a follow-up video appointment next year to monitor her renal status. Orders: Orders US renal BI 11 Months Z87.442 - Personal history of urinary calculi Medications: Refilled pyridoxine (vitamin B6) 100 mg PO DAILY 90 days 90 tabs 1RF Patient Instructions: The patient had an opportunity to ask questions regarding treatment plan. The patient expressed understanding and agreement with the above treatment plan. The patient is aware they should contact our office by phone for worsening of their current condition or the appearance of new symptoms. Compliance is encouraged with any medications and followup testing that is ordered. It is a privilege to be allowed the opportunity to participate in the urologic care of your patient. If you have any questions or concerns regarding treatment for the above conditions please do not hesitate to contact me. The office telephone contact is [phone]. This note is constructed in part using voice recognition software. While every effort has been made to ensure accuracy chief deputy coroner errors may have been included. Yours sincerely, Guille Aldana MD Scribe Plan - Not visible on output: Patient was informed and verbally consented to the use of an ambient scribe for clinic note documentation during this visit. Coding Level of Care Code Tele Est Pt Level 4 (98754) Complex EM visit Add On G2211 Diagnoses Kidney stones, calcium oxalate N20.0 History of kidney stones Z87.442
--- OUTSIDE RECORDS SUMMARY | 2024-10-17 08:40 | XMS_ITS | Clinical Summary ---
Author Organization [facility] ity Address [address] [place] [address] Care Team Providers Care Project Surveyor Name Role Phone Unavailable Primary Care Provider [...] - 2023-2 5 season) 2024 Influenza Vaccine (Season Ended) 2025 HIB Vaccines Aged Out No longer eligi [...] age to complete this topic Meningococcal B Vaccine Aged Out No l onger eligible based on patient's age to complete [...]
== END 2024-10-17 08:31 | disposition home or self-care (01) ==
LOC: HO.HUSH 08:18
PROVIDERS: PCP Internal Medicine; Visit Provider Urology
DX: N20.0 Calculus of kidney (principal); Z87.442 Personal history of urinary calculi
CPT/HCPCS: 99214

== ENCOUNTER → 2024-10-17 08:18 | Outpatient (BNVA) | payer MEDICAID, SELFPAY | PROVIDERS: PCP Internal Medicine; Visit Provider Urology ==

== ENCOUNTER 2025-03-13 09:07 | Outpatient (REF) | payer OTHER, SELFPAY ==
--- OUTSIDE RECORDS SUMMARY | 2025-03-13 10:17 | XMS_ITS | Clinical Summary ---
Author Organization [facility] ity Address [address] [place] [address] Care Team Providers Care Roofing Sales Representative Name Role Phone Unavailable Primary Care Provider [...] Vaccine ( - 2023-2 5 season) 2024 Depression Screening 07/06/2024 Influenza Vaccine (#1) 2025 HIB Vaccines Aged Out No longer [...] 5 Years) and At-Risk Patients (6 to 49 Years) Aged Out No longer eligible b ased on patient's age to complete this topic RSV Immunization Patients Un gumaro 20 months Aged Out No longer eligible b ased on patient's age to complete this topic Varicella Vaccines Aged Out No longer eligible based on patient's age to complete this topic
[2025-03-13 10:53] LABS: HBS Num1 0.16 mIU/mL (0-7.99); HBc Num1 0.14 S/CO (0.00-0.79); HBsAGNum1 0.40 S/CO (0.00-0.99); Hepatitis B Surface Antigen Negative (Negative); ~Hepatitis B Surface Antibody NONREACTIVE (Nonreactive)
[2025-03-14 09:04] LABS: Rubeola IgG (Measles) 72.90 AU/mL
[2025-03-16 02:54] LABS: TS Negative Control Passed; TS Panel A 0; TS Panel B 1; TS Positive Control Passed; TSpotTB Negative (Negative)
== END 2025-03-13 09:08 | disposition home or self-care (01) ==
LOC: HO.LAB 09:07
PROVIDERS: PCP Internal Medicine; Visit Provider Internal Medicine
DX: Z11.1 Encounter for screening for respiratory tuberculosis (principal); Z01.84 Encounter for antibody response examination; Z11.59 Encounter for screening for other viral diseases
CPT/HCPCS: 36415; 86481; 86704; 86706; 86735; 86762; 86765; 86787; 87340

== ENCOUNTER 2025-03-27 08:42 | Outpatient (REF) | payer OTHER, SELFPAY ==
[2025-03-27 11:19] LABS: Alanine Aminotransferase 39 U/L (0-31); Albumin Level 4.4 g/dL (3.5-5.0); Alkaline Phosphatase 90 U/L (39-117); Anion Gap 11 (12-20); Aspartate Amino Transferase 31 U/L (5-31); Blood Urea Nitrogen 12 mg/dL (9-16); Calcium 9.3 mg/dL (8.4-10.2); Carbon Dioxide 26 mmol/L (22-29); Chloride 106 mmol/L (96-108); Cholesterol 140 mg/dL (<200); Estimated Glomerular Filt Rate > 60; HDL Cholesterol 34 mg/dL (>40); Potassium 4.0 mmol/L (3.3-5.1); Sodium 139 mmol/L (135-145); Total Protein 7.6 g/dL (6.5-8.0); Triglycerides 72 mg/dL (<150)
== END 2025-03-27 08:43 | disposition home or self-care (01) ==
LOC: HO.LAB 08:42
PROVIDERS: PCP Internal Medicine; Visit Provider Internal Medicine
DX: Z23 Encounter for immunization (principal); Z00.00 Encounter for general adult medical examination without abnormal findings; E78.5 Hyperlipidemia, unspecified; F32.0 Major depressive disorder, single episode, mild; E66.01 Morbid (severe) obesity due to excess calories; M53.3 Sacrococcygeal disorders, not elsewhere classified; Z79.890 Hormone replacement therapy; Z79.891 Long term (current) use of opiate analgesic; Z79.899 Other long term (current) drug therapy; Z68.41 Body mass index [BMI] 40.0-44.9, adult
CPT/HCPCS: 36415; 80053; 80061; 90471; 90707; 96127; 99212; 99395

== ENCOUNTER 2025-03-27 08:42 | Outpatient (AMB) | payer OTHER, SELFPAY ==
--- NOTE | 2025-03-27 08:43 | MHC.PC.OV ---
Vital Signs 03/27/25 08:44 Height 4 ft 11 in Weight 211 lb 6 oz BMI 42.7 BP 140/90 H Blood Pressure Location Lt brachial Position Sitting Respiration 18 Pulse 57 Pulse Source Pulse Oximeter Temp 97.1 F Temp Source Temporal Artery Scan Pulse Oximetry (%) 98 Oxygen Delivery Method Room Air Intake Visit Reasons: Annual Exam Chief Customer Officer Required: No Accompanied by: Self / Same As Patient Allergies pineapple Allergy (Severe, Verified 03/27/25 09:11) Anaphylaxis SEAFOOD Allergy (Severe, Uncoded 03/27/25 09:11) ANAPHYLAXIS Medication List - Last Reconciled 03/27/25 by Sravani Barron MD albuterol sulfate 90 mcg/actuation (ProAir HFA) 2 puffs inhalation Q6H PRN 30 days bisacodyl (Dulcolax (bisacodyl)) 10 mg (2 x 5 mg) PO BEDTIME cholecalciferol (vitamin D3) 50 mcg PO DAILY 90 days docusate sodium (Colace) 200 mg (2 x 100 mg) PO DAILY ferrous sulfate 325 mg PO TID 90 days levothyroxine 112 mcg PO DAILY 90 days omeprazole 40 mg PO QAM pyridoxine (vitamin B6) 100 mg PO DAILY 90 days topiramate 25 mg PO BEDTIME 90 days tramadol 50 mg PO Q8H PRN 30 days Tobacco use date assessed: 03/27/25 Dental Screening Dental Screen Date: 03/27/25 Did you have a dental visit in the last 12 months?: No Did you have a dental problem in the last 6 months where you did not have access to dental care?: No Was dental information given to patient?: No HPI HPI Comments History of Present Illness Details The patient is a 34-year-old female presenting with an annual physical examination and vaccination review. She has a history of hypertension, which was noted to be slightly elevated during this visit. The patient reports a history of anemia, which has been a concern in the past. Chronic back pain is managed with tramadol as needed, and a pain management contract is in place. The patient has undergone kidney surgery for kidney stones and has had two sections. She has a history of thyroid cancer, for which a thyroidectomy was performed. Her family history includes diabetes and hyperlipidemia in her father, and breast cancer and myocardial infarction in her mother. Preventative care measures include a recent Pap smear, endoscopy, and colonoscopy, all performed this year. The patient is due for MMR and Hepatitis B vaccinations, as these were not previously administered. COUNTS INCLUDE 234 BEDS AT THE [facility] Medical History Morbid obesity with BMI of 40.0-44.9, adult BMI 39.0-39.9,adult Anxiety and depression Acute gastritis Constipation Renal calculi Acquired hypothyroidism Thyroid ca Renal colic Back pain Asthma Headache Thyroid disease Abdominal pain Mesenteric lymphadenitis Surgical History History of kidney surgery Hx of section History of surgery Family History Father Diabetes Hyperlipidemia Mother Breast cancer Heart attack Brother No problems noted. Brother No problems noted. Brother No problems noted. Sister No problems noted. Daughter No problems noted. Daughter No problems noted. Social History Household Members: Family and Children Housing: Apartment Are you a primary rental boats caretaker to a significant other at home: No Do you presently have visiting nurse or other home services: No Alcohol intake: never Patient Tobacco Use Status: Never used Tobacco e-Cigarette/Vaping Use: Never Used Second Hand Smoke Exposure: No service: No Current occupational status: unemployed Cognitive needs: No Hearing needs: No Vision needs: Yes Female Reproductive History Menstrual Age of Menarche: 11 Questionnaire PHQ-9 Over the last 2 weeks, how often have you been bothered by any of the following problems? 1. Little interest or pleasure in doing things: not at all 2. Feeling down, depressed, or hopeless: not at all 3. Trouble falling or staying asleep, or sleeping too much: several days 4. Feeling tired or having little energy: several days 5. Poor appetite or overeating: several days 6. Feeling bad about yourself - or that you are a failure or have let yourself or your family down: not at all 7. Trouble concentrating on things, such as reading the newspaper or watching television: not at all 8. Moving or speaking so slowly that other people could have noticed. Or the opposite - being so fidgety or restless that you have been moving around a lot more than usual: not at all 9. Thoughts that you would be better off or of hurting yourself in some way: not at all Total score: 3 Depression Screening Interpretation: Positive Depression Screening Follow-up: Existing condition, Community Mental Health Worker F/U and Follow-up Visit Requested Depression Screening Done: Yes 57115 - PHQ-9 Billing: Yes Source: Developed by Drs. Truman Leon, Kristyn Manriquez, Jose Garcia and colleagues, with an educational minal from [employer]. Thrive Questionnaire Date Thrive assessed: 03/22/24 I am a: Patient What is your living situation today?: I have a steady place to live Within the past 12 months, did the food you bought not last and you didn't have the money to get more?: Sometimes True Within the past 12 months, did you worry whether your food would run out before you got money to buy more?: I choose not to answer this question Do you have trouble paying for medicines?: I choose not to answer this question Do you have trouble getting transportation to medical appointments?: No Do you have trouble paying your heating and electricity bill?: I choose not to answer this question Do you have trouble taking care of your child, family member or friend?: No Do you have trouble with day-to-day activities such as bathing, preparing meals, shopping, managing finances, etc.?: No Are you currently unemployed and looking for a job?: Yes Are you interested in more education?: I choose not to answer this question Currently or been in a relationship where the following occur: No concerns reported THRIVE Score: 1 AUDIT C Alcohol Use Questionnaire (AUDIT-C) 1. How often do you have a drink containing alcohol?: Never Total Score: 0 Score Reviewed/Action Taken: No CECILIA-7 AMB Questionnaire CECILIA-7 Date CECILIA - 7 assessed: 03/22/24 Feeling nervous, anxious, or on edge: 1 = Several days Not being able to stop or control worryin = Not at all Worrying too much about different things: 0 = Not at all Trouble relaxin = Several days Being so restless that it is hard to sit still: 1 = Several days Becoming easily annoyed or irritable: 1 = Several days Feeling afraid as if something awful might happen: 0 = Not at all Total CECILIA-7 score (0-4 normal; 5-9 mild; 10-14 moderate; 15-21 severe): 4 Source: Developed by Drs. Truman Leon, Kristyn Manriquez, Jose Garcia and colleagues, with an educational minal from [employer]. CECILIA-7 Assessment Billing CECILIA-7 Assessment Tool: CECILIA-7 Assessment 92636 Review of Systems Const All systems reviewed & are unremarkable except as noted in HPI and below Card Denies chest pain at rest, Denies chest pain with activity, Denies edema, Denies irregular heart rhythm, Denies claudication, Denies dyspnea, Denies dyspnea on exertion, Denies orthopnea, Denies paroxysmal nocturnal dyspnea and Denies slow heart rate Resp Denies cough, Denies dyspnea and Denies dyspnea on exertion GI Denies abdominal pain, Denies change in bowel habits, Denies excessive flatus, Denies nausea and Denies vomiting Physical exam (Primary Care) Vital Signs: Last Vital Signs Temp 97.1 F 03/27/25 08:44 Pulse 57 03/27/25 08:44 Resp 18 03/27/25 08:44 BP 140/90 H 03/27/25 08:44 Pulse Ox 98 03/27/25 08:44 Oxygen Delivery Method Room Air 03/27/25 08:44 BMI result Body Mass Index 42.7 BMI Assessment/Plan discussion: High BMI High, discussed plan: lifestyle, weight reduction, dietary and physical activity Tobacco/Smoking Status: Tobacco use Status Tobacco use date assessed 03/27/25 03/27/25 08:52 Patient Tobacco Use Status Never used Tobacco 03/27/25 08:52 e-Cigarette/Vaping Use Never Used 03/27/25 08:52 PHQ-9: PHQ-9 Score PHQ-9: Total score 3 03/27/25 09:26 Depression Screening Interpretation: Positive Depression Screening Follow-up: Existing condition, Community Mental Health Worker F/U and Follow-up Visit Requested Thrive Assessment: Date of Thrive Assessment Date Thrive assessed 03/22/24 03/27/25 08:52 Currently or been in a relationship where the following occur: No concerns reported HENMT Head: Yes normal to inspection, Yes normocephalic and Yes atraumatic Ears: external ears normal Eyes General: appearance normal, both eyes and all related structures Eyelids: Yes eyelids normal Conjunctivae: conjunctivae normal Neck Neck: Yes normal visual inspection and Yes supple Resp Effort & Inspection: normal respiratory effort Auscultation: clear to auscultation bilaterally Cardio Jugular venous distension: no JVD Rate: regular rate Rhythm: regular rhythm Heart sounds: S1 normal heart sound present and S2 normal heart sound present GI Inspection: Yes normal to inspection Palpation (GI): Soft to palpation and nontender Auscultation: normal bowel sounds Skin General skin exam: no rashes or lesions noted Neuro General: no focal motor deficits Extrem General: Yes full ROM Psych Appearance: grossly normal Immunizations M-M-R II (PF) 1,000-12,500 TCID50/0.5 mL subcutaneous solution Performing Provider: Sravani Barron MD [facility] Administered by: Neyda Holliday LPN on 03/27/25 09:41 Dose Route Admin Location Dispensed Lot Number Expiration Date SDC Floor Coverings Salesperson 0.5 mL subcut Left Arm 0.5 mL [id number] 10/14/25 5905-0984-35 [employer] Total Dispensed Waste 0.5 mL 0 % VIS Given Date VIS Provided VIS Publication Date 03/27/25 Single Vaccine 24 Eligibility Eligibility Date Funding Source Not [facility] Eligible 03/27/25 Private Coding Level of Care Code Est Pt Level 3 (41033) Est Pt Prev Care 18-39y(71767) Diagnoses Physical exam Z00.00 Morbid obesity with BMI of 40.0-44.9, adult E66.01; Z68.41 Mild major depression F32.0 Sacral pain M53.3 Additional Codes PHQ-9 - 79129 - PHQ-9 Billing: Yes ([id number]) CECILIA-7 Assessment Billing - CECILIA-7 Assessment Tool: CECILIA-7 Assessment 29917 ([id number]) Time Spent (min) 32 Assessment & Plan Assessment & Plan (1) Physical exam: Code(s): Z00.00 - Encounter for general adult medical examination without abnormal findings Category: Medical (2) Morbid obesity with BMI of 40.0-44.9, adult: Comment: Discussed at length visit again... Code(s): E66.01 - Morbid (severe) obesity due to excess calories; Z68.41 - Body mass index [BMI] 40.0-44.9, adult Category: Medical (3) Mild major depression: Code(s): F32.0 - Major depressive disorder, single episode, mild Category: Medical (4) Sacral pain: Code(s): M53.3 - Sacrococcygeal disorders, not elsewhere classified Category: Medical Plan Plan Patient was informed and verbally consented to the use of an ambient scribe for clinic note documentation during this visit. 1. Encounter for general adult medical examination without abnormal findings Z00.00 Preventative care measures include a recent Pap smear, endoscopy, and colonoscopy, all performed this year. The patient is due for MMR and Hepatitis B vaccinations, which should be scheduled. 2. Dorsalgia, unspecified M54.9 Chronic back pain is managed with tramadol as needed. A pain management contract is in place, and the patient should continue to follow up with pain management services. Orders: Orders MMR Immunization Today Z23 - Encounter for immunization Lipid Panel Today E78.5 - Hyperlipidemia, unspecified Comprehensive [place]. Panel Fast Today Z79.891 - exterminator helper (current) use of opiate analgesic XR sacroiliac joint min 3V Today M53.3 - Sacrococcygeal disorders, not elsewhere classified
[2025-03-27 08:44] VITALS: BP 140/90; PULSE 57; RESP 18; TEMP 36.2; O2SAT 98; BMI 42.7
--- OUTSIDE RECORDS SUMMARY | 2025-03-27 10:04 | XMS_ITS | Clinical Summary ---
Author Organization [facility]y Address [address] [place] [address] Care Team Providers Care Box Worker Name Role Phone Unavailable Primary Care Provider [...] Cervical Cancer Screening: P ap Smear 2013 Depression Screening 07/06/2024 COVID-19 Vaccine (1 - 2023-2 5 season) 2025 Influenza Vaccine (#1) 2025 RSV Immunization Adult Patie nts (1 - 1-dose 75+ series) 2067 HIB Vaccines Aged Out No longer eligi [...]
== END 2025-03-27 09:39 | disposition home or self-care (01) ==
PROVIDERS: PCP Internal Medicine; Visit Provider Internal Medicine
DX: Z00.00 Encounter for general adult medical examination without abnormal findings (principal); M53.3 Sacrococcygeal disorders, not elsewhere classified; E66.01 Morbid (severe) obesity due to excess calories; Z68.41 Body mass index [BMI] 40.0-44.9, adult; F32.0 Major depressive disorder, single episode, mild; Z23 Encounter for immunization

== ENCOUNTER 2025-04-03 09:49 | Outpatient (REF) | payer OTHER, SELFPAY ==
--- NOTE | ~2025-04-03 | XR_ITS ---
EXAMINATION: XR SACROILIAC JOINTS CLINICAL INFORMATION: M53.3 - Sacrococcygeal disorders, not elsewhere classified COMPARISON: None available. TECHNIQUE: 3 views of the sacroiliac joints FINDINGS: SI joints are symmetrical without erosions, effusion, sclerosis, or osteophyte. XR/XR sacroiliac joint min 3V IMPRESSION: Unremarkable sacroiliac joints. Electronically signed by: Porfirio Garg MD 04/03/2025 11:02 AM EDT
--- OUTSIDE RECORDS SUMMARY | 2025-04-03 10:46 | XMS_ITS | Clinical Summary ---
Author Organization [facility] Address [address] [place] [address] Care Team Providers Care Child Care Sitter Name Role Phone Unavailable Primary Care Provider [...] Cervical Cancer Screening: P ap Smear 2013 HPV Vaccines (1 - 3-dose SCD M series) 2019 Depression Screening 07/06/2024 COVID-19 Vaccine ( - 2023-2 5 season) 2025 Influenza Vaccine [...]
== END 2025-04-03 09:50 | disposition home or self-care (01) ==
LOC: HO.XRAY 09:49
PROVIDERS: PCP Internal Medicine; Visit Provider Internal Medicine
DX: M53.3 Sacrococcygeal disorders, not elsewhere classified (principal)
CPT/HCPCS: 72202

== ENCOUNTER → 2025-04-03 09:51 | Outpatient (BNV) | payer OTHER, SELFPAY | PROVIDERS: PCP Internal Medicine; Visit Provider Radiology Diagnostic Radiology | DX: M53.3 Sacrococcygeal disorders, not elsewhere classified (principal) | CPT/HCPCS: 72202 ==

== ENCOUNTER 2025-04-18 08:45 | Outpatient (RCR) | payer OTHER, SELFPAY ==
[2025-03-03 07:28] VITALS: BP 161/93; PULSE 85; RESP 16; TEMP 36.4; O2SAT 98
[2025-03-10 08:02] VITALS: BP 136/68; PULSE 74; RESP 16; TEMP 37.2; O2SAT 96
[2025-03-13 08:37] VITALS: BP 147/83; PULSE 71; RESP 16; TEMP 36.7; O2SAT 97
[2025-03-20 08:19] VITALS: BP 135/78; PULSE 74; RESP 16; TEMP 36.3; O2SAT 97
[2025-03-20 08:56] LABS: Hematocrit 33.0 % (37.0-47.0); Hemoglobin 10.0 g/dl (12.0-16.0); Mean Corpuscular HGB Conc 30.3 g/dl (31.0-35.0); Mean Corpuscular Hemoglobin 22.2 pg (27.0-33.0); Mean Corpuscular Volume 73.3 fL (80.0-98.0); NRBC Abs Auto 0.000 X10*3/uL (0.0-0.012); NRBC Pct Auto 0.0 /100WBC (0.0-0.2); Platelet Count 397 X10*3/uL (160-400); Red Blood Count 4.50 X10*6/uL (4.20-5.50); White Blood Count 7.6 X10*3/uL (4.8-10.8)
[2025-03-20 09:36] LABS: Ferritin 127 ng/mL (10-122)
[2025-03-27 08:12] VITALS: BP 141/88; PULSE 68; RESP 16; TEMP 36.7; O2SAT 96
[2025-04-03 09:25] VITALS: BP 121/60; PULSE 66; RESP 16; TEMP 36.1; O2SAT 97
[2025-04-10 08:22] VITALS: BP 123/70; PULSE 63; RESP 16; TEMP 36.7; O2SAT 96
[2025-04-18 08:25] VITALS: BP 144/79; PULSE 66; RESP 16; TEMP 37.1; O2SAT 98
[2025-04-18 08:45] LABS: Hematocrit 38.5 % (37.0-47.0); Hemoglobin 11.8 g/dl (12.0-16.0); Mean Corpuscular HGB Conc 30.6 g/dl (31.0-35.0); Mean Corpuscular Hemoglobin 24.3 pg (27.0-33.0); Mean Corpuscular Volume 79.2 fL (80.0-98.0); NRBC Abs Auto 0.000 X10*3/uL (0.0-0.012); NRBC Pct Auto 0.0 /100WBC (0.0-0.2); Platelet Count 348 X10*3/uL (160-400); Red Blood Count 4.86 X10*6/uL (4.20-5.50); White Blood Count 8.0 X10*3/uL (4.8-10.8)
[2025-04-18 09:27] LABS: Ferritin 215 ng/mL (10-122)
== END 2025-04-18 10:00 | disposition home or self-care (01) ==
LOC: HO.INF 08:45
PROVIDERS: Visit Provider Internal Medicine Medical Oncology
DX: D50.9 Iron deficiency anemia, unspecified (principal)
CPT/HCPCS: 36415; 82728; 85027; 96365; 96374; J1756

== ENCOUNTER → 2025-04-20 10:00 | Outpatient (BNVA) | payer OTHER, SELFPAY | PROVIDERS: PCP Internal Medicine | DX: I10 Essential (primary) hypertension (principal); E66.9 Obesity, unspecified; Z68.41 Body mass index [BMI] 40.0-44.9, adult | CPT/HCPCS: 99211 ==